=== PATIENT | male | born 1950 | race Caucasian/White ===

== ENCOUNTER 2017-07-06 10:32 | Emergency (ER) | payer MEDICARE ==
[2017-07-06] MEDS ORDERED: SODIUM CHLORIDE 0.9% 500 ML IV STA (11:20)
[2017-07-06] MEDS ORDERED: SODIUM CHLORIDE 0.9% 1,000 ML IV STA (11:20)
[2017-07-06 11:42] LABS: Basophils % (A) 1 %; Eosinophils # (A) 0.1 k/uL (0-0.7); Eosinophils % (A) 1 %; HGB 16.8 gm/dL (13.0-17.5); Lymphocytes # (A) 1.1 k/uL (1.0-4.8); Lymphocytes % (A) 18 %; MCH 30.9 pg (25.0-35.0); MCHC 33.1 g/dL (31.0-37.0); MCV 93.5 fL (80.0-100.0); Mean Platelet Volume 7.4; Monocytes # (A) 0.3 k/uL (0-1.0); Monocytes % (A) 5 %; Neutrophils # (A) 4.5 k/uL (1.3-7.7); Neutrophils % (A) 73 %; Platelet Count 184 k/uL (150-450); RBC 5.45 m/uL (4.30-5.90); RDW 12.5 % (11.5-15.5); WBC 6.1 k/uL (3.8-10.6)
--- NOTE | 2017-07-06 11:48 | ED ---
Abdominal Pain HPI - General Chief Complaint: Abdominal Pain Stated Complaint: Needs CT Kidney Time Seen by Provider: 07/06/17 11:13 Source: patient Mode of arrival: ambulatory Limitations: no limitations - History of Present Illness Initial Comments: This 66-year-old white male presents with a complaint of some pain into his right abdomen and flank region. He states that it is been going on for approximately 3 weeks. He denies any fevers, chills, urinary frequency, urgency , or dysuria, or hematuria. He states that it is moderate in nature and fairly minimal currently. He does give a history that he had a renal cancer removed off of his right kidney in April of this year at [facility]. He apparently called the [facility] relating his current symptoms and they wanted him to come in for a computed tomography scan of the abdomen, pelvis, and thorax. He does bring this paper work with him and it is reviewed. He states that all of the cancer was apparently removed during the surgery. He has no other medical complaints. He is not taking any medications for the pain thus far. No modifying factors. - Related Data Home Medications Medication Instructions Recorded Confirmed No Known Home Medications [No 07/06/17 07/06/17 Known Home Medications] Allergies Allergy/AdvReac Type Severity Reaction Status Date / Time No Known Allergies Allergy Verified 07/06/17 11:24 Review of Systems ROS Statement: Those systems with pertinent positive or pertinent negative responses have been documented in the HPI. ROS Other: All systems not noted in ROS Statement are negative. Past Medical History Past Medical History: Cancer, Renal Disease Additional Past Medical History / Comment(s): right renal CA History of Any Multi-Drug Resistant Organisms: None Reported Past Surgical History: Appendectomy, Cholecystectomy, Orthopedic Surgery Additional Past Surgical History / Comment(s): right kidney, Bilateral shoulder Past Psychological History: No Psychological Hx Reported Smoking Status: Never smoker Past Alcohol Use History: None Reported Past Drug Use History: None Reported General Exam - General Exam Comments Initial Comments: GENERAL: The patient is well nourished and well hydrated. VITAL SIGNS: Heart rate, blood pressure, respiratory rate reviewed as recorded in nurse's notes. EYES: Pupils are round and reactive. Extraocular movements are intact. No conjunctival / lid redness or swelling. ENT: No external evidence of injury, swelling, or ecchymosis. Airway is patent. Throat is clear. NECK: Nontender. No swelling or evidence of injury. No subcutaneous emphysema. Trachea is midline. No thyroid mass. HEART: Regular rate and rhythm. Good peripheral pulses. LUNGS/CHEST: Breath sounds clear and equal bilaterally. No rales, rhonchi, or wheezes. No ecchymosis, subcutaneous emphysema, or tenderness. ABDOMEN: Abdomen soft without any current tenderness. There is no flank tenderness noted. No palpable masses or organomegaly. No peritoneal signs. No abdominal wall swelling or ecchymosis. EXTREMITIES: No extremity tenderness. Normal muscle tone and function. No thoracolumbar tenderness. NEUROLOGIC: Sensation is grossly intact. Cranial nerve exam reveals face is symmetrical, tongue is midline, speech is clear. SKIN: No abrasions or ecchymosis is noted. No induration or masses noted. PSYCHIATRIC: Alert and oriented. Appropriate behavior and judgment. Limitations: no limitations Course Vital Signs 07/06/17 07/06/17 11:06 12:42 Temperature 97.6 F 97.9 F Pulse Rate 69 86 Respiratory 16 18 Rate Blood Pressure 134/81 112/61 O2 Sat by Pulse 99 97 Oximetry Medical Decision Making - Medical Decision Making The patient was seen and examined. All diagnostics were reviewed. An IV is initiated and he is mildly hydrated. The laboratory and urinalysis are reviewed and are essentially unremarkable. The computed tomography scan of the thorax abdomen and pelvis was also reviewed. It does show some abnormalities in the prostate but he states that he is being followed very closely in this regard. He's had 3 biopsies and his PSA is followed closely with his urologist. The computed tomography scan also showed some mild inflammatory changes at the base of the right kidney where he had a partial nephrectomy. No abscess or acute process otherwise is identified. They also do note a sclerotic lesion in the right iliac region and the T7 and recommend follow-up with previous studies. Other incidental findings are noted. He is informed of these findings and given a copy of his computed tomography scan and the report. He is going to relay this information to [facility] for their recommendations as well. The exact cause of his pain is not definitively determined. It is felt as though he is stable for discharge. He is in no distress initially and in no distress on recheck. He is instructed to utilize Tylenol or Motrin as needed for his minimal pain. He is instructed to follow very closely with his doctors for further recommendations. - Lab Data Result diagrams: 07/06/17 11:32 07/06/17 11:32 Lab Results 07/06/17 07/06/17 07/06/17 Range/Units 11:32 11:32 12:24 WBC 6.1 (3.8-10.6) k/uL RBC 5.45 (4.30-5.90) m/uL Hgb 16.8 (13.0-17.5) gm/dL Hct 51.0 (39.0-53.0) % MCV 93.5 (80.0-100.0) fL MCH 30.9 (25.0-35.0) pg MCHC 33.1 (31.0-37.0) g/dL RDW 12.5 (11.5-15.5) % Plt Count 184 (150-450) k/uL Neutrophils % 73 % Lymphocytes % 18 % Monocytes % 5 % Eosinophils % 1 % Basophils % 1 % Neutrophils # 4.5 (1.3-7.7) k/uL Lymphocytes # 1.1 (1.0-4.8) k/uL Monocytes # 0.3 (0-1.0) k/uL Eosinophils # 0.1 (0-0.7) k/uL Basophils # 0.0 (0-0.2) k/uL Sodium 143 (137-145) mmol/L Potassium 4.5 (3.5-5.1) mmol/L Chloride 103 (98-107) mmol/L Carbon Dioxide 30 (22-30) mmol/L Anion Gap 10 mmol/L BUN 21 H (9-20) mg/dL Creatinine 1.00 (0.66-1.25) mg/dL Est GFR (MDRD) Af Amer >60 (>60 ml/min/1.73 sqM) Est GFR (MDRD) Non-Af >60 (>60 ml/min/1.73 sqM) Glucose 86 (74-99) mg/dL Calcium 10.0 (8.4-10.2) mg/dL Total Bilirubin 0.9 (0.2-1.3) mg/dL AST 26 (17-59) U/L ALT 43 (21-72) U/L Alkaline Phosphatase 45 (38-126) U/L Total Protein 7.9 (6.3-8.2) g/dL Albumin 5.0 (3.5-5.0) g/dL Amylase 84 (30-110) U/L Lipase 112 (23-300) U/L Urine Color Yellow Urine Appearance Clear (Clear) Urine pH 6.0 (5.0-8.0) Ur Specific [place] 1.013 (1.001-1.035) Urine Protein Negative (Negative) Urine Glucose (UA) Negative (Negative) Urine Ketones 1+ H (Negative) Urine Blood Negative (Negative) Urine Nitrite Negative (Negative) Urine Bilirubin Negative (Negative) Urine Urobilinogen <2.0 (<2.0) mg/dL Ur Leukocyte Esterase Negative (Negative) Disposition Clinical Impression: Right flank pain, Right sided abdominal pain, H/O malignant neoplasm of kidney , Bony abnormality, Renal cyst, Hepatic lesion, Enlarged prostate Disposition: HOME SELF-CARE Condition: Good Instructions: Abdominal Pain (ED), Flank Pain (ED) Additional Instructions: Please relate ear testing results to your oncology team at [facility] for further recommendations. Please follow-up with your urologist closely. Referrals: None,Stated [Primary Care Provider] - 1-2 days Time of Disposition: 13:37
[2017-07-06 11:49] LABS: ALT 43 U/L (21-72); AST 26 U/L (17-59); Alkaline Phosphatase 45 U/L (38-126); Amylase 84 U/L (30-110); Anion Gap 10 mmol/L; Blood Urea Nitrogen 21 mg/dL (9-20); Carbon Dioxide 30 mmol/L (22-30); Chloride 103 mmol/L (98-107); Glucose 86 mg/dL (74-99); Lipase 112 U/L (23-300); Potassium 4.5 mmol/L (3.5-5.1); Sodium 143 mmol/L (137-145); Total Bilirubin 0.9 mg/dL (0.2-1.3); Total Protein 7.9 g/dL (6.3-8.2)
[2017-07-06 12:37] LABS: Appearance,Urine Clear (Clear); Bilirubin,Urine Negative (Negative); Blood,Urine Negative (Negative); Color,Urine Yellow; Glucose,Urine (UA) Negative (Negative); Ketones,Urine 1+ (Negative); Leukocyte Esterase,Urine Negative (Negative); Nitrite,Urine Negative (Negative); Protein,Urine Negative (Negative); Specific Gravity,Urine 1.013 (1.001-1.035); Urobilinogen,Urine <2.0 mg/dL (<2.0)
--- NOTE | 2017-07-06 12:57 | CT ---
EXAMINATION TYPE: CT ChestAbdPelvis w con DATE OF EXAM: 07/06/2017 COMPARISON: NONE HISTORY: Pain Post OP right sided renal mass removal April 2017. Follow up renal cancer per patien t CT DLP: 530.8 mGycm. Automated Exposure Control for Dose Reduction was Utilized. CONTRAST: CT scan of the thorax, abdomen and pelvis is performed with IV Contrast, patient injected with 100 mL of Omnipaque 300. FINDINGS: LUNGS: The lungs are grossly clear, there is no concerning parenchymal mass or nodule identified. T here is no pleural effusion or pneumothorax seen. The tracheobronchial tree is patent. MEDIASTINUM: There are no greater than 1 cm hilar or mediastinal lymph nodes. No pericardial effusi on is seen. OTHER: Degenerative changes of the glenohumeral joints are noted. LIVER/GB: Within segment 8 of the liver there is a 6 mm hypoattenuated hepatic lesion that is too sma ll to accurately characterize. No prior imaging is available at this institution for comparison to de termine stability. This is relatively low attenuation and may represent a hepatic cyst. PANCREAS: No significant abnormality is seen. SPLEEN: Single benign splenic granuloma is seen within the parenchyma. ADRENALS: No significant abnormality is seen. KIDNEYS: Postsurgical changes of the right lower pole of the kidney are seen with surgical sutures fr om partial nephrectomy. A fluid attenuated lesion without significant enhancement on delayed images s uggestive of a renal cyst is seen within the right midpole measuring 6 mm although this is too small to definitively accurately characterize. Mild right inferior pole perinephric fat stranding is seen, which is nonspecific. No focal fluid collection. The left kidney is unremarkable. BOWEL: Few scattered colonic diverticula are present without pericolonic fat stranding. No evidence o f bowel obstruction. GENITAL ORGANS: The prostate gland is diffusely enlarged and heterogenous measuring up to 5.6 x 5.7 c m in transverse by anterior posterior dimension containing central zone calcifications and left perip heral zone hyperemia/enhancement within both the base and the apex. This is greater towards the apex. LYMPH NODES: No greater than 1cm abdominal or pelvic lymph nodes are appreciated. OSSEOUS STRUCTURES: There is mild vertebral body height loss of the L1 vertebral body of approximatel y 10%. No significant no spinal canal stenosis. Focal sclerotic lesion of T7 measures 5.8 mm. Retropu lsion is seen. Nonspecific peripherally sclerotic right iliac bone lesion measures 8 mm. Correlation with any outside prior imaging is recommended to determine stability. IMPRESSION: 1. Postsurgical changes of a right inferior pole partial nephrectomy. Mild right lower pole inflammat ory fat stranding is seen, which is nonspecific. No focal fluid collection to suggest seroma or absce ss. 2. Diffusely enlarged and heterogenous prostate gland with multiple areas of left-sided hyperemia/enh ancement. Further evaluation for neoplasm is recommended. 3. Probable right renal cyst although it is too small to accurately characterize. 4. Mild vertebral body height loss of the L1 vertebral body of approximately 10% without significant retropulsion. 5. Nonspecific sclerotic lesion of T7 and peripherally sclerotic right iliac bone lesions. Comparison with any outside prior imaging is recommended to determine stability. 6. Subcentimeter hepatic lesion that is too small to accurately characterize.
[2017-07-06 16:35] VITALS: BP 111/71; PULSE 86; RESP 18; TEMP 98
== END 2017-07-06 13:57 | disposition home or self-care (01) ==
LOC: EC 10:32
DX: R10.9 Unspecified abdominal pain (principal); Q79.9 Congenital malformation of musculoskeletal system, unspecified; N28.1 Cyst of kidney, acquired; K76.9 Liver disease, unspecified; N40.0 Benign prostatic hyperplasia without lower urinary tract symptoms; Z85.528 Personal history of other malignant neoplasm of kidney; Z90.49 Acquired absence of other specified parts of digestive tract
CPT/HCPCS: 36415; 80053; 82150; 83690; 85025; 81003; 71260; 74177; 99284; 96360; 96361; Q9967

== ENCOUNTER 2019-09-05 14:00 | Inpatient (IN) | payer MEDICARE, OTHER ==
[2019-09-05 14:29] LABS: Basophils % (A) 0 %; Eosinophils # (A) 0.1 k/uL (0-0.7); Eosinophils % (A) 2 %; HCT 33.8 % (39.0-53.0); HGB 11.1 gm/dL (13.0-17.5); Lymphocytes # (A) 0.5 k/uL (1.0-4.8); Lymphocytes % (A) 12 %; MCH 29.8 pg (25.0-35.0); MCHC 32.8 g/dL (31.0-37.0); MCV 90.8 fL (80.0-100.0); Mean Platelet Volume 6.7; Monocytes # (A) 0.2 k/uL (0-1.0); Monocytes % (A) 6 %; Neutrophils # (A) 3.2 k/uL (1.3-7.7); Neutrophils % (A) 79 %; Platelet Count 351 k/uL (150-450); RBC 3.72 m/uL (4.30-5.90); RDW 12.3 % (11.5-15.5)
[2019-09-05 14:32] LABS: Glucose,Whole Blood 99 mg/dL (75-99)
[2019-09-05 14:33] LABS: ALT 18 U/L (4-49); AST 18 U/L (17-59); African American GFR (CKD) >90 (>60 ml/min/1.73 sqM); Albumin 2.8 g/dL (3.5-5.0); Alkaline Phosphatase 45 U/L (38-126); Anion Gap 12 mmol/L; Blood Urea Nitrogen 15 mg/dL (9-20); Calcium 8.3 mg/dL (8.4-10.2); Carbon Dioxide 24 mmol/L (22-30); Chloride 96 mmol/L (98-107); Glucose 107 mg/dL (74-99); Magnesium 1.8 mg/dL (1.6-2.3); Non-African American GFR(CKD) >90 (>60 ml/min/1.73 sqM); Potassium 3.7 mmol/L (3.5-5.1); Sodium 132 mmol/L (137-145); Total Bilirubin 0.7 mg/dL (0.2-1.3); Total Protein 5.5 g/dL (6.3-8.2)
--- NOTE | 2019-09-05 14:41 | ED ---
General Adult HPI - General Chief complaint: Weakness Stated complaint: Wealness Time Seen by Provider: 09/05/19 14:05 Source: EMS Mode of arrival: EMS Limitations: no limitations - History of Present Illness Initial comments: Dictation was produced using [employer] dictation software. please excuse any grammatical, word or spelling errors. Chief Complaint: 68-year-old male with past medical history of renal cell carcinoma with diffuse metastatic disease presents with generalized weakness. History of Present Illness: She 68-year-old male has history of metastatic renal cell carcinoma. Patient was recently discharged from [facility] approximately 10-11 days ago. Patient states that he is here today because of generalized weakness he is brought in by EMS. Patient states she's been generally weak. He reports that he was admitted to [facility] for approximately 8 days for a similar complaint. He has not had any cancer treatment since May of last year. He states he is trying to get stronger and healthier so he can undergo another series of cancer treatment. Patient has any pain complaints. He is unable to keep anything down. He states that when he presses also daily immediately throws it up. Patient states he does not have any doctors here locally because most of his doctors are [facility]. He states he drives there almost monthly for follow-up appointments. The ROS documented in this emergency department record has been reviewed and confirmed by me. Those systems with pertinent positive or negative responses have been documented in the HPI. All other systems are other negative and/or noncontributory. PHYSICAL EXAM: General Impression: Alert and oriented x3, not in acute distress, cachexic appearing HEENT: Normocephalic atraumatic, extra-ocular movements intact, pupils equal and reactive to light bilaterally, dry mucous membranes Cardiovascular: Heart regular rate and rhythm, S1&S2 audible, no murmurs, rubs or gallops Chest: Lungs clear to auscultation bilaterally, no rhonchi, no wheeze, no rales Abdomen: Bowel sounds present, abdomen soft, non-tender, non-distended, no organomegaly Musculoskeletal: Pulses present and equal in all extremities, no peripheral e vilma Motor: no focal deficits noted Neurological: CN II-XII grossly intact, no focal motor or sensory deficits noted Skin: Intact with no visualized rashes Psych: Normal affect and mood ED course: 68-year-old male presents with generalized weakness. Patient has extensive medical history regarding his renal cell carcinoma. Vital signs upon arrival are within acceptable limits. Laboratory evaluation obtained. CBC unremarkable. Coag panel is unremarkable. Metabolic panel shows mild hyponatremia 132. Rest metabolic panel is negative. Patient reevaluated bedside. He states he is having difficulty tolerating any sort of oral intake. Vital signs however remained to be normal. Patient re quested to be admitted to our facility given that it's closer to home nearby his family has a post being transferred to [facility]. Discussed patient case Dr. clark was went except patient's care. Request was made to clinic clinic to obtain recent admission medical records. Patient will be continued on maintenance IV fluids and antiemetics. EKG interpretation: Ventricular rate 90, normal sinus rhythm,. 136, QRS 86, QTC 428. No KS prolongation, no QTC prolongation, no ST or T-wave changes noted. . Overall, this EKG is unremarkable - Related Data Home Medications Medication Instructions Recorded Confirmed No Known Home Medications 07/06/17 07/06/17 Allergies Allergy/AdvReac Type Severity Reaction Status Date / Time No Known Allergies Allergy Verified 07/06/17 11:24 Review of Systems ROS Statement: Those systems with pertinent positive or pertinent negative responses have been documented in the HPI. ROS Other: All systems not noted in ROS Statement are negative. Past Medical History Past Medical History: Cancer, Renal Disease Additional Past Medical History / Comment(s): right renal CA History of Any Multi-Drug Resistant Organisms: None Reported Past Surgical History: Appendectomy, Cholecystectomy, Orthopedic Surgery Additional Past Surgical History / Comment(s): right kidney, Bilateral shoulder Past Psychological History: No Psychological Hx Reported Smoking Status: Never smoker Past Alcohol Use History: None Reported Past Drug Use History: None Reported General Exam Limitations: no limitations Course Vital Signs 09/05/19 09/05/19 09/05/19 14:05 14:30 15:00 Temperature 97.6 F Pulse Rate 91 87 89 Respiratory 18 17 18 Rate Blood Pressure 100/68 101/65 100/73 O2 Sat by Pulse 100 99 100 Oximetry Medical Decision Making - Lab Data Result diagrams: 09/05/19 14:11 09/05/19 14:11 Lab Results 09/05/19 09/05/19 09/05/19 Range/Units 14:11 14:11 14:11 WBC 4.0 (3.8-10.6) k/uL RBC 3.72 L (4.30-5.90) m/uL Hgb 11.1 L (13.0-17.5) gm/dL Hct 33.8 L (39.0-53.0) % MCV 90.8 (80.0-100.0) fL MCH 29.8 (25.0-35.0) pg MCHC 32.8 (31.0-37.0) g/dL RDW 12.3 (11.5-15.5) % Plt Count 351 (150-450) k/uL Neutrophils % 79 % Lymphocytes % 12 % Monocytes % 6 % Eosinophils % 2 % Basophils % 0 % Neutrophils # 3.2 (1.3-7.7) k/uL Lymphocytes # 0.5 L (1.0-4.8) k/uL Monocytes # 0.2 (0-1.0) k/uL Eosinophils # 0.1 (0-0.7) k/uL Basophils # 0.0 (0-0.2) k/uL PT 12.1 H (9.0-12.0) sec INR 1.2 H (<1.2) APTT 23.8 (22.0-30.0) sec Sodium 132 L (137-145) mmol/L Potassium 3.7 (3.5-5.1) mmol/L Chloride 96 L (98-107) mmol/L Carbon Dioxide 24 (22-30) mmol/L Anion Gap 12 mmol/L BUN 15 (9-20) mg/dL Creatinine 0.73 (0.66-1.25) mg/dL Est GFR (CKD-EPI)AfAm >90 (>60 ml/min/1.73 sqM) Est GFR (CKD-EPI)NonAf >90 (>60 ml/min/1.73 sqM) Glucose 107 H (74-99) mg/dL POC Glucose (mg/dL) (75-99) mg/dL POC Glu [employer] ID Plasma Lactic Acid Yohannes (0.7-2.0) mmol/L Calcium 8.3 L (8.4-10.2) mg/dL Magnesium 1.8 (1.6-2.3) mg/dL Total Bilirubin 0.7 (0.2-1.3) mg/dL AST 18 (17-59) U/L ALT 18 (4-49) U/L Alkaline Phosphatase 45 (38-126) U/L Troponin I (0.000-0.034) ng/mL Total Protein 5.5 L (6.3-8.2) g/dL Albumin 2.8 L (3.5-5.0) g/dL Urine Color Urine Appearance (Clear) Urine pH (5.0-8.0) Ur Specific [employer] (1.001-1.035) Urine Protein (Negative) Urine Glucose (UA) (Negative) Urine Ketones (Negative) Urine Blood (Negative) Urine Nitrite (Negative) Urine Bilirubin (Negative) Urine Urobilinogen (<2.0) mg/dL Ur Leukocyte Esterase (Negative) Urine RBC (0-5) /hpf Urine WBC (0-5) /hpf Ur Squamous Epith Cells (0-4) /hpf Urine Mucus (None) /hpf Urine Yeast (Budding) (None) /hpf Urine Sperm (None) /hpf 09/05/19 09/05/19 09/05/19 Range/Units 14:11 14:11 14:30 WBC (3.8-10.6) k/uL RBC (4.30-5.90) m/uL Hgb (13.0-17.5) gm/dL Hct (39.0-53.0) % MCV (80.0-100.0) fL MCH (25.0-35.0) pg MCHC (31.0-37.0) g/dL RDW (11.5-15.5) % Plt Count (150-450) k/uL Neutrophils % % Lymphocytes % % Monocytes % % Eosinophils % % Basophils % % Neutrophils # (1.3-7.7) k/uL Lymphocytes # (1.0-4.8) k/uL Monocytes # (0-1.0) k/uL Eosinophils # (0-0.7) k/uL Basophils # (0-0.2) k/uL PT (9.0-12.0) sec INR (<1.2) APTT (22.0-30.0) sec Sodium (137-145) mmol/L Potassium (3.5-5.1) mmol/L Chloride (98-107) mmol/L Carbon Dioxide (22-30) mmol/L Anion Gap mmol/L BUN (9-20) mg/dL Creatinine (0.66-1.25) mg/dL Est GFR (CKD-EPI)AfAm (>60 ml/min/1.73 sqM) Est GFR (CKD-EPI)NonAf (>60 ml/min/1.73 sqM) Glucose (74-99) mg/dL POC Glucose (mg/dL) 99 (75-99) mg/dL POC Glu [employer]orer ID MartinezGuy Plasma Lactic Acid Yohannes 1.0 (0.7-2.0) mmol/L Calcium (8.4-10.2) mg/dL Magnesium (1.6-2.3) mg/dL Total Bilirubin (0.2-1.3) mg/dL AST (17-59) U/L ALT (4-49) U/L Alkaline Phosphatase (38-126) U/L Troponin I <0.012 (0.000-0.034) ng/mL Total Protein (6.3-8.2) g/dL Albumin (3.5-5.0) g/dL Urine Color Urine Appearance (Clear) Urine pH (5.0-8.0) Ur Specific [employer] (1.001-1.035) Urine Protein (Negative) Urine Glucose (UA) (Negative) Urine Ketones (Negative) Urine Blood (Negative) Urine Nitrite (Negative) Urine Bilirubin (Negative) Urine Urobilinogen (<2.0) mg/dL Ur Leukocyte Esterase (Negative) Urine RBC (0-5) /hpf Urine WBC (0-5) /hpf Ur Squamous Epith Cells (0-4) /hpf Urine Mucus (None) /hpf Urine Yeast (Budding) (None) /hpf Urine Sperm (None) /hpf 09/05/19 Range/Units 16:30 WBC (3.8-10.6) k/uL RBC (4.30-5.90) m/uL Hgb (13.0-17.5) gm/dL Hct (39.0-53.0) % MCV (80.0-100.0) fL MCH (25.0-35.0) pg MCHC (31.0-37.0) g/dL RDW (11.5-15.5) % Plt Count (150-450) k/uL Neutrophils % % Lymphocytes % % Monocytes % % Eosinophils % % Basophils % % Neutrophils # (1.3-7.7) k/uL Lymphocytes # (1.0-4.8) k/uL Monocytes # (0-1.0) k/uL Eosinophils # (0-0.7) k/uL Basophils # (0-0.2) k/uL PT (9.0-12.0) sec INR (<1.2) APTT (22.0-30.0) sec Sodium (137-145) mmol/L Potassium (3.5-5.1) mmol/L Chloride (98-107) mmol/L Carbon Dioxide (22-30) mmol/L Anion Gap mmol/L BUN (9-20) mg/dL Creatinine (0.66-1.25) mg/dL Est GFR (CKD-EPI)AfAm (>60 ml/min/1.73 sqM) Est GFR (CKD-EPI)NonAf (>60 ml/min/1.73 sqM) Glucose (74-99) mg/dL POC Glucose (mg/dL) (75-99) mg/dL POC Glu [employer]orer ID Plasma Lactic Acid Yohannes (0.7-2.0) mmol/L Calcium (8.4-10.2) mg/dL Magnesium (1.6-2.3) mg/dL Total Bilirubin (0.2-1.3) mg/dL AST (17-59) U/L ALT (4-49) U/L Alkaline Phosphatase (38-126) U/L Troponin I (0.000-0.034) ng/mL Total Protein (6.3-8.2) g/dL Albumin (3.5-5.0) g/dL Urine Color Yellow Urine Appearance Cloudy (Clear) Urine pH 6.5 (5.0-8.0) Ur Specific [employer] 1.019 (1.001-1.035) Urine Protein Trace H (Negative) Urine Glucose (UA) Negative (Negative) Urine Ketones 2+ H (Negative) Urine Blood Negative (Negative) Urine Nitrite Negative (Negative) Urine Bilirubin Negative (Negative) Urine Urobilinogen 2.0 (<2.0) mg/dL Ur Leukocyte Esterase Negative (Negative) Urine RBC 1 (0-5) /hpf Urine WBC 3 (0-5) /hpf Ur Squamous Epith Cells <1 (0-4) /hpf Urine Mucus Moderate H (None) /hpf Urine Yeast (Budding) Occasional H (None) /hpf Urine Sperm Rare (None) /hpf Disposition Clinical Impression: Weakness Disposition: ADMITTED IP TO THIS [facility] Condition: Fair Referrals: None,Stated [REFERRING] - 1-2 days Decision Time: 17:27
[2019-09-05 14:43] LABS: INR 1.2 (<1.2); Partial Thromboplastin Time 23.8 sec (22.0-30.0); Prothrombin Time 12.1 sec (9.0-12.0)
[2019-09-05 16:50] LABS: Appearance,Urine Cloudy (Clear); Bilirubin,Urine Negative (Negative); Blood,Urine Negative (Negative); Budding Yeast,Urine Occasional /hpf; Color,Urine Yellow; Glucose,Urine (UA) Negative (Negative); Ketones,Urine 2+ (Negative); Leukocyte Esterase,Urine Negative (Negative); Mucus,Urine Moderate /hpf; Nitrite,Urine Negative (Negative); PH, Urine 6.5 (5.0-8.0); Protein,Urine Trace (Negative); RBC,Urine 1 /hpf (0-5); Specific Gravity,Urine 1.019 (1.001-1.035); Sperm,Urine Rare /hpf; Squamous Epithelial Cell,Urine <1 /hpf (0-4); WBC,Urine 3 /hpf (0-5)
[2019-09-05] MEDS ORDERED: NALOXONE 0.4 MG/ML 1 ML VIAL IV PRN (17:27)
[2019-09-05] MEDS ORDERED: ACETAMINOPHEN TAB 325 MG TAB PO PRN (17:27)
[2019-09-05] MEDS: SODIUM CHLORIDE 0.9% 1,000 ML IV SCH (17:56)
[2019-09-05] MEDS: PANTOPRAZOLE 40 MG TABLET PO SCH (20:00)
[2019-09-05] MEDS: TAMSULOSIN 0.4 MG CAP.ER.24H PO SCH (20:00)
[2019-09-06] MEDS: PANTOPRAZOLE 40 MG TABLET PO SCH ×2 (08:25→17:23)
[2019-09-06] MEDS: SODIUM CHLORIDE 0.9% 1,000 ML IV SCH ×3 (10:51→16:14)
[2019-09-06 15:45] VITALS: BMI 18.0
[2019-09-06] MEDS ORDERED: TEMAZEPAM 15 MG CAP PO PRN (16:25)
[2019-09-06] MEDS ORDERED: ALPRAZolam 0.25 MG TAB PO PRN (16:25)
--- NOTE | 2019-09-06 17:30 | HP ---
HISTORY AND PHYSICAL DATE OF SERVICE: 09/06/2019 CHIEF COMPLAINT: Weakness. HISTORY OF PRESENT ILLNESS: This 68-year-old gentleman with a past medical history of multiple medical problems, including history of right renal carcinoma, history of appendectomy, cholecystectomy, history of DJD, being followed by [facility] and Dr. Alvarado in the outpatient setting, was receiving treatment from [facility]. Patient was recently discharged from [facility] about 11 days ago. The patient complains of generalized weakness and tiredness, and the patient is unable to keep anything down. The patient was admitted for further evaluation and treatment. The patient had extensive evaluation in [facility] recently. He had abdominal symptoms and was thought to have colitis or multiple ulcerations and multiple cavities in the colon. The patient has received multiple radiation therapy, but no chemotherapy has been started because if the patient's apparently poor general status at this time. His BMI is 18, indicating moderate to severe protein-calorie malnutrition. There is no history of any fever, rigor or chills. No history of headache, loss of consciousness, seizures at this time. PAST MEDICAL HISTORY: History of renal cancer, as mentioned, right nephrectomy, history of cholecystectomy, appendectomy, history of DJD, history of bilateral shoulder surgery. HOME MEDICATIONS: 1. Flomax 0.4 at bedtime. 2. Protonix 40 mg b.i.d. 3. Multivitamins 1 p.o. daily. ALLERGIES: NONE. FAMILY HISTORY: No history of heart disease or strokes in the family. SOCIAL HISTORY: No history of smoking. No history of alcohol intake. REVIEW OF SYSTEMS: ENT: Diminished hearing. Diminished vision. CARDIOVASCULAR SYSTEM: No angina, palpitations. RESPIRATORY SYSTEM: As mentioned earlier. GI: No nausea, vomiting. : No dysuria or retention. NERVOUS SYSTEM: No numbness, weakness. ALLERGY/IMMUNOLOGY: No asthma, hayfever. MUSCULOSKELETAL: As mentioned earlier. HEMATOLOGY/ONCOLOGY: No history of anemia. ENDOCRINE: No history of diabetes, hypothyroidism. CONSTITUTIONAL: As mentioned earlier. DERMATOLOGY: Negative. RHEUMATOLOGY: Negative. PSYCHIATRY: As mentioned earlier. PHYSICAL EXAMINATION: Patient is alert and oriented x3. Pulse 86, blood pressure 94/60, respirations 16, temperature 98.4, pulse ox 96% on room air. HEENT: Conjunctivae normal. Oral mucosa dry. NECK: No jugular venous distention. No carotid bruit. No lymph node enlargement. CARDIOVASCULAR SYSTEM: S1, S2 muffled. No S3. No S4. RESPIRATORY SYSTEM: Breath sounds diminished at the bases. A few scattered rhonchi. No crackles. ABDOMEN: Soft, scaphoid, non-tender. No mass palpable. LEGS: No edema. No swelling. NERVOUS SYSTEM: Higher functions as mentioned earlier. Moves all 4 limbs. No focal motor or sensory deficit. LYMPHATICS: No lymph node palpable in neck, axillae or groin. SKIN: No ulcer, rash, bleeding. JOINTS: No active deforming arthropathy. LABS: WBC 4, hemoglobin 11.1. INR 1.2. Sodium 132, albumin is 2.8. ASSESSMENT: 1. Generalized weakness and tiredness for evaluation; possible dehydration secondary to diminished oral intake. 2. Diffuse ulcerations and multiple lesions after EGD and colonoscopy recently done in [facility]. 3. Right renal cancer with metastases, on radiation therapy; chemotherapy pending. 4. Anemia, normocytic. 5. Relative hypotension. 6. Hyponatremia. 7. Mild coagulopathy. 8. Hypoalbuminemia with severe protein-calorie malnutrition. 9. History of degenerative joint disease. 10.History of right nephrectomy. 11.History of appendectomy. 12.History of cholecystectomy. 13.FULL CODE. RECOMMENDATIONS AND DISCUSSION: In this 68-year-old gentleman who presented with multiple complex medical issues, we will monitor the patient closely, continue the current medications, continue with symptomatic treatment. I recommend IV fluids. Dietary evaluation. Ensure, food supplementation. Check orthostatic vitals. Serum cortisol. Hematology/oncology evaluation. Resume the home medication. Monitor creatinine closely. IV fluids. Prognosis guarded because of multiple complex medical issues. Further recommendations to follow. Patient does not have any evidence of any infection at this time. I would also order a chest x-ray to complete the workup. Prognosis guarded. Further recommendations to follow. A copy of this dictation is being forwarded to Dr. Alvarado, who is the primary physician. MMODL / IJN: [id number] /
[2019-09-06] MEDS: TAMSULOSIN 0.4 MG CAP.ER.24H PO SCH (20:13)
[2019-09-06] MEDS: HEPARIN SODIUM,PORCINE 5,000 UNIT/ML 1 ML VIAL SQ SCH (20:13)
--- NOTE | 2019-09-06 22:08 | P.CONS ---
History of Present Illness - Reason for Consult Consult date: 09/06/19 Weakness, Failure to thrive, RCC - History of Present Illness The patient is a 68-year-old white male with a complicated past medical history. The patient was diagnosed with right-sided renal cell cancer in the . He was treated with nephrectomy. The patient developed recurrence in the lungs, apparently in 2019. He states that this was an isolated recurrence in the patient was treated with resection at the [facility] in 02/18. He then developed recurrence in the right renal bed and states that he received radiation. Since late 05/21, the patient developed problems with abdominal pains, exacerbated by eating. He also had associated bloating, and gas. As a result his oral intake declined significantly and he started to lose weight. He has lost about 20+ pounds since. He had gone to [facility] and was admitted for these complaints. He states that he had imaging done in 08/22 and was told that this was negative. He had been following up at the [facility] regarding his recurrent renal cell cancer. He was admitted therefore persistent complains and states that on review of his imaging there he was told that there appeared to be recurrence in the lung and possibly the right renal bed. In mid 08/22, he had EGD and colonoscopy revealing significant erythema and inflammation in the upper GI, as well as diffuse inflammation with scattered ulceration throughout the colon. He states the biopsies were negative and at this time he has not been told a definite etiology. He was subsequently discharged. He came into the hospital today because of persistent weakness, decreased appetite and failure to thrive. He was admitted for further management. Review of Systems Constitutional: Reports chronic pain, Reports fatigue, Reports poor appetite, Reports weakness, Reports weight loss Eyes: denies blurred vision, denies pain Ears: deny: decreased hearing, ear discharge, earache, tinnitus Ears, nose, mouth and throat: Denies headache, Denies sore throat Cardiovascular: Reports decreased exercise tolerance Respiratory: Denies cough Gastrointestinal: Reports as per HPI, Reports abdominal pain, Reports bloating, Reports dyspepsia, Reports excessive gas Genitourinary: Reports as per HPI Musculoskeletal: Reports muscle weakness Integumentary: Denies pruritus, Denies rash Neurological: Reports weakness Psychiatric: Denies anxiety, Denies depression Endocrine: Reports fatigue, Reports weight change Hematologic/Lymphatic: Reports as per HPI Past Medical History Past Medical History: Cancer, Renal Disease Additional Past Medical History / Comment(s): right renal CA History of Any Multi-Drug Resistant Organisms: None Reported Past Surgical History: Appendectomy, Cholecystectomy, Orthopedic Surgery Additional Past Surgical History / Comment(s): right kidney, Bilateral shoulder Past Psychological History: No Psychological Hx Reported Smoking Status: Never smoker Past Alcohol Use History: None Reported Past Drug Use History: None Reported - Past Family History Father Family Medical History: No Reported History Medications and Allergies Home Medications Medication Instructions Recorded Confirmed Type Multivitamins, Thera [Multivitamin 1 tab PO DAILY 09/05/19 09/05/19 History (formulary)] Pantoprazole Sodium [Protonix] 40 mg PO AC-BID 09/05/19 09/05/19 History Tamsulosin HCl [Flomax] 0.4 mg PO HS 09/05/19 09/05/19 History Allergies Allergy/AdvReac Type Severity Reaction Status Date / Time No Known Allergies Allergy Verified 09/05/19 20:48 Physical Exam Vitals: Vital Signs Temp Pulse Pulse Pulse Pulse Resp BP 09/06/19 20:33 98.8 F 102 H 103 H 96 16 09/06/19 16:19 91 63 102 H 91 18 09/06/19 11:20 98.4 F 86 16 94/60 09/06/19 04:55 98.1 F 97 18 96/60 09/05/19 21:08 99.8 F H 90 18 101/66 BP BP BP Pulse Ox 09/06/19 20:33 97/61 96/62 96/59 99 09/06/19 16:19 108/67 103/64 104/62 09/06/19 11:20 96 09/06/19 04:55 95 09/05/19 21:08 98 Intake and Output 09/06/19 09/06/19 09/06/19 06:59 14:59 22:59 Other: Voiding Method Toilet Toilet # Voids 2 3 # Bowel Movements 1 Weight 53.796 kg - Constitutional General appearance: no acute distress - EENT Eyes: EOMI, PERRLA ENT: hearing grossly normal, normal oropharynx - Neck Neck: no lymphadenopathy Thyroid: bilateral: normal size - Respiratory Respiratory: bilateral: CTA - Cardiovascular Rhythm: regular Heart sounds: normal: S1, S2 - Gastrointestinal General gastrointestinal: normal bowel sounds, soft Localized gastrointestinal: tender: RLQ, LLQ - Integumentary Integumentary: normal - Neurologic Neurologic: CNII-XII intact - Musculoskeletal Musculoskeletal: generalized weakness, strength equal bilaterally - Psychiatric Psychiatric: A&O x's 3, appropriate affect Results CBC & Chem 7: 09/05/19 14:11 09/05/19 14:11 Comments: EGD and colonoscopy op report, images, reviewed ( [facility]) CT scan - abdomen: report reviewed CT scan - chest: report reviewed CT scan - pelvis: report reviewed Assessment and Plan (1) Failure to thrive in adult Narrative/Plan: This appears to be due to abdominal pain since 05/21, with multiple different types of food, causing decreased oral intake, progressive weakness and weight loss. EGD and colonoscopy report reviewed and summarized in the HPI. Biopsies were negative for malignancy, but exact etiology is not known at this time. The patient has follow-up at the [facility] later this month At this time supportive measures would be recommended. The patient feels better with hydration. He states that he is able to tolerate some foods better than others. Dietitian referral advised to formulate an appropriate diet plan for him, to hopefully maintain weight and performance status, till he follows up at [facility]. At this time it is difficult to attribute this to recurrent malignancy. His CT scans from [facility] were obtained from EMR and reviewed. They did not show any evident recurrent malignancy. He states that on review at [facility] he was told that there were some lesions in the lung. However according to the available description, even if there is recurrent disease the borderline would appear to be quite low, and unlikely to cause major symptoms at this time Current Visit: Yes Status: Acute Code(s): R62.7 - ADULT FAILURE TO THRIVE SNOMED Code(s): 384442989 (2) Renal cell cancer Narrative/Plan: History as described above. The patient states that at his last visit in [facility] he was told that he may have recurrent disease, but according to his description burden of disease appears to be quite low. He has not had any systemic therapy for renal cell cancer so far but apparently this is being discussed at the [facility]. Follow-up at [facility] as scheduled. Current Visit: Yes Status: Acute Code(s): C64.9 - MALIGNANT NEOPLASM OF UNSP KIDNEY, EXCEPT RENAL PELVIS SNOMED Code(s): 151940140 (3) Colitis Narrative/Plan: The patient's recent CT scans, as well as endoscopies revealed fairly extensive GI inflammation, with jose scattered ulcers in the colon. Etiology of this is not known. However this appears to be likely the reason for his decreased appetite, weight loss and failure to thrive. Apparently biopsies were negative for infection or malignancy. An autoimmune etiology is a possibility. It was confirmed with the patient that he has a follow-up at [facility] later this month. I will check for celiac disease antibodies Current Visit: Yes Status: Acute Code(s): K52.9 - NONINFECTIVE GASTROENTERITIS AND COLITIS, UNSPECIFIED SNOMED Code(s): 58443946 Plan: defer to the Admitting service for management of his other medical problems
[2019-09-07] MEDS: SODIUM CHLORIDE 0.9% 1,000 ML IV SCH (05:21)
[2019-09-07 08:21] LABS: Basophils % (A) 0 %; Eosinophils # (A) 0.1 k/uL (0-0.7); Eosinophils % (A) 1 %; HCT 31.3 % (39.0-53.0); HGB 10.5 gm/dL (13.0-17.5); Lymphocytes # (A) 0.4 k/uL (1.0-4.8); Lymphocytes % (A) 11 %; MCH 30.1 pg (25.0-35.0); MCHC 33.5 g/dL (31.0-37.0); MCV 89.9 fL (80.0-100.0); Mean Platelet Volume 6.8; Monocytes # (A) 0.2 k/uL (0-1.0); Monocytes % (A) 6 %; Neutrophils # (A) 2.9 k/uL (1.3-7.7); Neutrophils % (A) 79 %; Platelet Count 386 k/uL (150-450); RBC 3.49 m/uL (4.30-5.90); RDW 12.3 % (11.5-15.5); WBC 3.6 k/uL (3.8-10.6)
[2019-09-07 08:30] LABS: African American GFR (CKD) >90 (>60 ml/min/1.73 sqM); Anion Gap 6 mmol/L; Blood Urea Nitrogen 12 mg/dL (9-20); Calcium 8.1 mg/dL (8.4-10.2); Carbon Dioxide 26 mmol/L (22-30); Chloride 97 mmol/L (98-107); Glucose 104 mg/dL (74-99); Non-African American GFR(CKD) >90 (>60 ml/min/1.73 sqM); Potassium 3.3 mmol/L (3.5-5.1); Sodium 129 mmol/L (137-145)
--- NOTE | 2019-09-07 09:11 | XR ---
EXAMINATION TYPE: XR chest 2V DATE OF EXAM: 09/07/2019 COMPARISON: CT July 06, 2017 HISTORY: Chest pain. History of renal cell cancer. TECHNIQUE: Frontal and lateral views of the chest are obtained. FINDINGS: There is no focal air space opacity, pleural effusion, or pneumothorax seen. The cardiac silhouette size remains within normal limits. Scoliotic curvature is redemonstrated. IMPRESSION: No acute cardiopulmonary process. No significant change from prior.
[2019-09-07] MEDS: MULTIVITAMINS, THERA 1 EACH TAB PO SCH (09:58)
[2019-09-07] MEDS: PANTOPRAZOLE 40 MG TABLET PO SCH ×2 (09:58→18:26)
[2019-09-07] MEDS: HEPARIN SODIUM,PORCINE 5,000 UNIT/ML 1 ML VIAL SQ SCH ×2 (09:58→20:47)
[2019-09-07] MEDS ORDERED: Potassium Replacement Protocol 1 EACH MISC MISCELLANE PRN (10:22)
[2019-09-07] MEDS: THIAMINE 100 MG TAB PO SCH (12:45)
[2019-09-07] MEDS: FOLIC ACID 1 MG TAB PO SCH (12:45)
[2019-09-07] MEDS: NYSTATIN 100,000 UNIT/ML SUSP 500,000 UNIT/5 ML CUP PO SCH ×3 (12:45→20:47)
[2019-09-07] MEDS: 0.9% NACL WITH KCL 40 MEQ/L 1,000 ML IV SCH (18:26)
[2019-09-07] MEDS: methylPREDNISolone SOD SUCCI 125 MG/2 ML VIAL IV SCH ×2 (19:24→23:43)
--- NOTE | 2019-09-07 20:04 | PN ---
PROGRESS NOTE DATE OF SERVICE: 09/07/2019 This 68-year-old gentleman who was admitted with weakness, also had diffuse ulcerations in the colon. The patient was seen by Hematology/Oncology. Sodium 139, potassium 3.3 and cortisol level was 21. WBC 33.2, hemoglobin 10.4. PAST MEDICAL HISTORY: Reviewed. REVIEW OF SYMPTOMS: CARDIOVASCULAR SYSTEM as mentioned earlier. RESPIRATIONS: As mentioned earlier. GI: As mentioned earlier. : No dysuria. NERVOUS SYSTEM: No numbness or weakness. CURRENT MEDICATIONS: Reviewed and include: 1. Tylenol p.r.n. 2. [place] 5 mg q.6h p.r.n. 3. Xanax 0.5 t.i.d. 4. Folic acid 1 mg daily. 5. Heparin 5000 subcu b.i.d. 6. Multivitamins. 7. Narcan. 8. Mycostatin. 9. Protonix. 10.Vitamin B1. PHYSICAL EXAM: Patient is alert and oriented times three. Pulse 102. Blood pressure 89/59, respiration 16, temperature 98.2, pulse ox 98% on room air. HEENT: Conjunctivae normal. NECK: No JVD. CARDIOVASCULAR: S1, S2 muffled. RESPIRATORY SYSTEM: Breath sounds diminished at the bases. A few scattered rhonchi and crackles. ABDOMEN: Soft, nontender. LEGS are no edema. No swelling. CENTRAL NERVOUS SYSTEM: No focal deficits. LABS: WBC 3.2, hemoglobin 10.8. Sodium 130, potassium 3.3. ASSESSMENT: 1. Generalized weakness and tiredness possible dehydration secondary to diminished p.o. intake. 2. Relative hypotension. 3. Diffuse ulcerations and multiple lesions in the EGD and colonoscopy done in [facility], possibly autoimmune in nature. 4. Final biopsies are pending. 5. Right renal cancer with metastasis on radiation therapy, chemotherapy pending. 6. Anemia, normocytic. 7. Relative hypotension. 8. Hyponatremia. 9. Mild coagulopathy. 10.Hypoalbuminemia. 11.Severe protein calorie malnutrition. 12.History of degenerative joint disease. 13.History of right nephrectomy. 14.History of appendectomy. 15.History of cholecystectomy. 16.FULL CODE. 17.Diarrhea. RECOMMENDATIONS AND DISCUSSION: In this 68-year-old gentleman who presented with multiple complex medical issues, we will monitor the patient closely. Continue the IV fluids. Otherwise, supplement potassium. Monitor sodium closely. Otherwise as far as diarrhea is concerned, we will check a stool for C diff and also urine and stool WBC also. The possibility of empiric steroids will be discussed with Dr. Dykes. Otherwise, prognosis guarded because of multiple complex medical issues. Further recommendations to follow. See orders for details. MMODL / IJN: [id number] /
[2019-09-07 20:17] LABS: Glucose,Whole Blood 145 mg/dL (75-99)
[2019-09-07] MEDS: TAMSULOSIN 0.4 MG CAP.ER.24H PO SCH (20:47)
[2019-09-07] MEDS: INSULIN ASPART (NovoLOG) 100 UNIT/ML VIAL SQ SCH (20:47)
[2019-09-08] MEDS: methylPREDNISolone SOD SUCCI 125 MG/2 ML VIAL IV SCH ×3 (05:55→18:20)
[2019-09-08] MEDS: 0.9% NACL WITH KCL 40 MEQ/L 1,000 ML IV SCH ×3 (05:55→22:28)
[2019-09-08 06:57] LABS: Glucose,Whole Blood 153 mg/dL (75-99)
[2019-09-08 07:29] LABS: Basophils % (A) 0 %; Eosinophils % (A) 0 %; HCT 33.3 % (39.0-53.0); HGB 10.7 gm/dL (13.0-17.5); Lymphocytes # (A) 0.2 k/uL (1.0-4.8); Lymphocytes % (A) 11 %; MCH 29.4 pg (25.0-35.0); MCV 91.9 fL (80.0-100.0); Mean Platelet Volume 7.1; Monocytes % (A) 2 %; Neutrophils # (A) 1.4 k/uL (1.3-7.7); Neutrophils % (A) 86 %; Platelet Count 308 k/uL (150-450); RBC 3.63 m/uL (4.30-5.90); RDW 12.3 % (11.5-15.5); WBC 1.7 k/uL (3.8-10.6)
[2019-09-08 07:44] LABS: African American GFR (CKD) >90 (>60 ml/min/1.73 sqM); Anion Gap 6 mmol/L; Blood Urea Nitrogen 12 mg/dL (9-20); Calcium 8.5 mg/dL (8.4-10.2); Carbon Dioxide 26 mmol/L (22-30); Chloride 102 mmol/L (98-107); Glucose 145 mg/dL (74-99); Non-African American GFR(CKD) >90 (>60 ml/min/1.73 sqM); Potassium 4.2 mmol/L (3.5-5.1); Sodium 134 mmol/L (137-145)
[2019-09-08] MEDS: MULTIVITAMINS, THERA 1 EACH TAB PO SCH (09:08)
[2019-09-08] MEDS: THIAMINE 100 MG TAB PO SCH (09:08)
[2019-09-08] MEDS: PANTOPRAZOLE 40 MG TABLET PO SCH ×2 (09:08→18:23)
[2019-09-08] MEDS: HEPARIN SODIUM,PORCINE 5,000 UNIT/ML 1 ML VIAL SQ SCH ×2 (09:09→21:47)
[2019-09-08] MEDS: NYSTATIN 100,000 UNIT/ML SUSP 500,000 UNIT/5 ML CUP PO SCH ×4 (09:09→21:47)
[2019-09-08] MEDS: INSULIN ASPART (NovoLOG) 100 UNIT/ML VIAL SQ SCH ×4 (09:09→21:47)
[2019-09-08] MEDS: FOLIC ACID 1 MG TAB PO SCH (09:09)
[2019-09-08 12:03] LABS: Glucose,Whole Blood 155 mg/dL (75-99)
[2019-09-08 17:05] LABS: Glucose,Whole Blood 197 mg/dL (75-99)
--- NOTE | 2019-09-08 17:53 | P.CONS ---
History of Present Illness - Reason for Consult Consult date: 09/08/19 Colitis Requesting physician: Rashi Cain - Chief Complaint Abdominal pain, decreased oral intake, weakness - History of Present Illness 68-year-old male with medical history significant for right sided renal cell cancer diagnosed in the status post nephrectomy the patient had recurrence of his disease in 2019 requiring resection of part of his long in 01/2019 and subsequent recurrence in the renal bed for which he underwent radiation treatment, who presents to the hospital with complaints of decreased oral intake, abdominal pain, weakness and diarrhea. The patient reports that since May 2019 he has been dealing with symptoms of abdominal pain, bloating and distention. The patient feels that part of this is due to dietary intake of large amounts of fibrous foods. He feels that he is had some improvement with modifications of his diet. He is also been having multiple loose bowel movements daily and excess 4-5 loose nonbloody bowel movements per day. Patient reports that prior to developing his symptoms he has never had problems with bowel movements or abdominal pain in the past. He denies any vomiting in association with his symptoms. He has had decreased oral intake secondary to the symptoms as he felt not eating improved the way he felt. He underwent EGD and colonoscopy for evaluation at [facility] in August 2019 with find ings of a hiatal hernia, Schatzki's ring and gastritis on EGD as well as findings of large ulcerated areas throughout the colon and into the terminal ileum with the largest measuring over 48 mm in size. Biopsies were taken and pathology has been provided by the patient's through his patient portal which does show chronic inflammatory changes, however pathologist no states that infectious, medication effect or other etiology cannot be excluded in the differential with inflammatory process. Review of Systems REVIEW OF SYSTEMS: CONSTITUTIONAL: Denies any fevers, chills, but does report weakness and fatigue as well as weight loss secondary to decreased oral intake. CARDIOVASCULAR: Denies any chest pain, palpitations high or low blood pressures RESPIRATORY: Denies any shortness of breath, hemoptysis or cough. GENITOURINARY: No dysuria or hematuria. MUSCULOSKELETAL: No weakness reported. SKIN: Denies any new rashes or lesions, jaundice or pallor. PSYCHIATRIC: Denies any depression or anxiety. NEUROLOGY: Denies headache, denies any new focal deficits. EARS/NOSE/THROAT: No recent hearing change, congestion, nasal discharge or sore throat. EYES: No pain in eyes, discharge or change in vision. GASTROINTESTINAL: As per HPI. Past Medical History Past Medical History: Cancer, Renal Disease Additional Past Medical History / Comment(s): right renal CA History of Any Multi-Drug Resistant Organisms: None Reported Past Surgical History: Appendectomy, Cholecystectomy, Orthopedic Surgery Additional Past Surgical History / Comment(s): right kidney, Bilateral shoulder Past Psychological History: No Psychological Hx Reported Smoking Status: Never smoker Past Alcohol Use History: None Reported Past Drug Use History: None Reported - Past Family History Father Family Medical History: No Reported History Medications and Allergies Home Medications Medication Instructions Recorded Confirmed Type Multivitamins, Thera [Multivitamin 1 tab PO DAILY 09/05/19 09/05/19 History (formulary)] Pantoprazole Sodium [Protonix] 40 mg PO AC-BID 09/05/19 09/05/19 History Tamsulosin HCl [Flomax] 0.4 mg PO HS 09/05/19 09/05/19 History Allergies Allergy/AdvReac Type Severity Reaction Status Date / Time No Known Allergies Allergy Verified 09/05/19 20:48 Physical Exam Vitals: Vital Signs Temp Pulse Pulse Pulse Pulse Resp BP 09/08/19 04:46 97.4 F L 85 16 90/58 09/07/19 20:33 99.4 F 89 16 96/59 09/07/19 16:24 98 F 94 94 96 09/07/19 16:00 89 102 H 103 H 96 16 09/07/19 12:57 98 F 89 16 BP BP BP Pulse Ox 09/08/19 04:46 97 09/07/19 20:33 97 09/07/19 16:24 108/62 101/64 101/61 09/07/19 16:00 09/07/19 12:57 89/59 99 Intake and Output 09/07/19 09/08/19 09/08/19 21:59 06:59 14:59 Intake Total Balance Intake: Intake, IV Titration Amount 0.9% NaCl with KCl 40 Meq /l 1,000 ml @ 90 mls/hr IV .[id number] [id number] Rx#: [id number] Sodium Chloride 0.9% 1, 000 ml @ 90 mls/hr IV . Q11H7M [facility] Rx#:[id number] Other: Voiding Method # Voids # Bowel Movements On physical examination, patient appears comfortable in no apparent distress. HEAD: Normocephalic, atraumatic. EYES: No scleral icterus. No conjunctival injection. MOUTH: No lesions, tongue midline. NECK: Trachea midline, no gross abnormalities. CHEST: Clear to auscultation with no wheezing or rhonchi appreciated. HEART: Regular rate and rhythm. ABDOMEN: Soft, thin and nontender to palpation. Bowel sounds are positive. No organomegaly. No guarding or rigidity. EXTREMITIES: No pedal edema. SKIN: No rashes, no jaundice. NEUROLOGIC: Alert and oriented x3. No focal deficits. Results CBC & Chem 7: 09/08/19 06:43 09/08/19 06:43 Labs: Abnormal Lab Results - Last 24 Hours (Table) 09/07/19 09/07/19 09/08/19 Range/Units 17:50 20:15 06:43 WBC 1.7 L (3.8-10.6) k/uL RBC 3.63 L (4.30-5.90) m/uL Hgb 10.7 L (13.0-17.5) gm/dL Hct 33.3 L (39.0-53.0) % Lymphocytes # 0.2 L (1.0-4.8) k/uL Sodium (137-145) mmol/L Creatinine (0.66-1.25) mg/dL Glucose (74-99) mg/dL POC Glucose (mg/dL) 145 H (75-99) mg/dL Stool Lactoferrin POSITIVE H (NEGATIVE) 09/08/19 09/08/19 Range/Units 06:43 06:56 WBC (3.8-10.6) k/uL RBC (4.30-5.90) m/uL Hgb (13.0-17.5) gm/dL Hct (39.0-53.0) % Lymphocytes # (1.0-4.8) k/uL Sodium 134 L (137-145) mmol/L Creatinine 0.65 L (0.66-1.25) mg/dL Glucose 145 H (74-99) mg/dL POC Glucose (mg/dL) 153 H (75-99) mg/dL Stool Lactoferrin (NEGATIVE) Microbiology - Last 24 Hours (Table) 09/07/19 17:50 Urine Culture - Preliminary Urine,Clean Catch Chest x-ray: report reviewed (Chest x-ray with no acute pulmonary or cardiac process noted) Assessment and Plan (1) Colitis Narrative/Plan: 68-year-old male with a history of renal cell cancer treated with nephrectomy in the with recurrence in 2019 requiring radiation therapy of the right renal bed was subsequently developed symptoms of gas, bloating, distention, abdominal pain, and loose stools. Patient currently reporting improvement in symptoms on steroid therapy. He underwent EGD and colonoscopy for evaluation at the clinic in August 2019 with findings of gastritis, nonobstructing Schatzki's ring and hiatal hernia with numerous ulcerations noted throughout the colon and in the terminal ileum. Chronic active inflammation seen on pathology from biopsies of the colon with note from pathologist stating that in addition to inflammatory process medication effect, infection or other etiology cannot be ruled out. Given the correlation of the patient's symptoms with radiation therapy suspect inflammatory changes secondary to radiation. Testing for Clostridium difficile negative and lactoferrin positive. Current Visit: Yes Status: Acute Code(s): K52.9 - NONINFECTIVE GASTROENTERITIS AND COLITIS, UNSPECIFIED SNOMED Code(s): 97401857 (2) Diarrhea Narrative/Plan: Lactoferrin positive with testing for Clostridium difficile negative. Likely secondary to above. Current Visit: Yes Status: Acute Code(s): R19.7 - DIARRHEA, UNSPECIFIED SNOMED Code(s): 91106055 Plan: Supportive care Okay for diet Extensive discussion with the patient on minimizing consumption of fibrous foods and dairy, as well as other dietary modifications Continue steroid therapy If symptoms persist consider treatments for possible small intestinal bacterial overgrowth Patient currently reporting improvement in bowel movements, if diarrhea worsens can consider further stool studies Thanks for allowing us to this patient in the care of the patient we will continue to follow
[2019-09-08] MEDS: ONDANSETRON 4 MG/2 ML VIAL IVP PRN (18:17)
[2019-09-08 20:28] LABS: Glucose,Whole Blood 155 mg/dL (75-99)
--- NOTE | 2019-09-08 21:44 | PN ---
PROGRESS NOTE The panic a medic Anaprox put for: DATE OF SERVICE: 09/08/2019 This 68-year-old gentleman admitted with significant weakness, also had history of renal cell carcinoma. The patient had radiation therapy. Patient had multiple lesions, multifocal lesions in the colon and stomach and duodenum in the endoscopies. The biopsy report from [facility] did not show any evidence of malignancy. Favors nonspecific colitis. Patient being closely monitored. Autoimmune etiology is not completely ruled out. I have discussed the case at length with Hematology/Oncology and as well as Gastroenterology. PAST MEDICAL HISTORY: Reviewed. REVIEW OF SYSTEMS: Cardiovascular system: No angina. Respiratory: As mentioned earlier. Gastrointestinal: As mentioned earlier. no dysuria. Nervous systems: No numbness or weakness. CURRENT MEDICATIONS: Reviewed and include: 1. Tylenol 650 q.6h p.r.n. 2. [place] 5 mg q.6h. 3. Xanax 0.5 t.i.d. p.r.n. 4. Folic acid 1 mg p.o. daily. 5. Heparin 5000 subcu b.i.d. 6. Solu-Medrol 60 IV q.6. 7. Potassium chloride. 8. Multivitamins. 9. Narcan 0.2 q.2 p.r.n. 10.Zofran 4 mg IV q.8h. 11.Protonix 40 mg p.o. b.i.d. 12.Flomax 0.4 daily. 13.Restoril 15 mg q.h.s. 14.Vitamin B1. 15.Thiamine 100 mg p.o. daily. PHYSICAL EXAMINATION: Patient is alert, oriented x2. Pulse is 88. Blood pressure 87/57, respirations 16, temperature 97.2, pulse ox 98% on room air. HEENT: Conjunctivae normal. Oral mucosa moist. NECK is no jugular venous distention. No carotid bruit. No lymph node enlargement. Cardiovascular system: S1, S2 muffled. No S3, no S4. RESPIRATORY: Breath sounds diminished in the bases. No rhonchi. No crackles. ABDOMEN: Soft, nontender. No mass palpable. LEGS no edema. No swelling. Central nervous system: Diffuse weakness. LAB STUDIES: WBC 11.2, hemoglobin 10.7 sodium 134. ASSESSMENT: 1. Generalized weakness and tiredness possibly dehydration secondary to diminished p.o. intake. 2. Relative hypotension. 3. Diffuse ulcerations of multiple lesions in the EGD and colonoscopy in the [facility], possibly autoimmune or colitis. 4. Right renal cancer with metastasis on radiation therapy, chemotherapy pending. 5. Anemia, normocytic. 6. Relative hypotension. 7. Hyponatremia. 8. Mild coagulopathy. 9. Hypoalbuminemia. 10.Severe protein calorie protein calorie malnutrition with BMI of 18. 11.History of degenerative joint disease. 12.History of right nephrectomy. 13.History of appendectomy. 14.History of cholecystectomy. 15.FULL CODE. 16.Diarrhea, improving. RECOMMENDATIONS AND DISCUSSION: In this 71-year-old gentleman who presented with multiple complex medical issues, we will monitor the patient closely, continue the current medications, management and symptomatic treatment. We will initiate empiric IV steroids and monitor closely. Otherwise, monitor blood sugars closely. As I mentioned, I would also recommend Maciel and we will continue to follow with multiple consultants as mentioned earlier. Discussed with Dr. Cooper and as well as Dr. Dykes. See orders for details. Further recommendations to follow. MMODL / IJN: [id number] /
[2019-09-08] MEDS: FLUDROCORTISONE 0.1 MG TAB PO SCH (21:47)
[2019-09-08] MEDS: TAMSULOSIN 0.4 MG CAP.ER.24H PO SCH (21:47)
[2019-09-09] MEDS: methylPREDNISolone SOD SUCCI 125 MG/2 ML VIAL IV SCH ×4 (00:07→17:44)
[2019-09-09] MEDS: ONDANSETRON 4 MG/2 ML VIAL IVP PRN ×2 (02:27→17:44)
[2019-09-09] MEDS: 0.9% NACL WITH KCL 40 MEQ/L 1,000 ML IV SCH ×3 (04:48→21:37)
[2019-09-09 07:04] LABS: Glucose,Whole Blood 134 mg/dL (75-99)
[2019-09-09 07:43] LABS: Basophils % (A) 0 %; Eosinophils % (A) 1 %; HCT 29.9 % (39.0-53.0); HGB 9.7 gm/dL (13.0-17.5); Lymphocytes # (A) 0.3 k/uL (1.0-4.8); Lymphocytes % (A) 10 %; MCH 29.6 pg (25.0-35.0); MCHC 32.5 g/dL (31.0-37.0); MCV 91.1 fL (80.0-100.0); Mean Platelet Volume 7.2; Monocytes # (A) 0.1 k/uL (0-1.0); Monocytes % (A) 4 %; Neutrophils # (A) 2.7 k/uL (1.3-7.7); Neutrophils % (A) 84 %; Platelet Count 328 k/uL (150-450); RBC 3.28 m/uL (4.30-5.90); RDW 12.3 % (11.5-15.5); WBC 3.3 k/uL (3.8-10.6)
[2019-09-09 07:47] LABS: African American GFR (CKD) >90 (>60 ml/min/1.73 sqM); Anion Gap 7 mmol/L; Blood Urea Nitrogen 18 mg/dL (9-20); Calcium 8.3 mg/dL (8.4-10.2); Carbon Dioxide 22 mmol/L (22-30); Chloride 106 mmol/L (98-107); Glucose 137 mg/dL (74-99); Non-African American GFR(CKD) >90 (>60 ml/min/1.73 sqM); Potassium 3.8 mmol/L (3.5-5.1); Sodium 135 mmol/L (137-145)
[2019-09-09] MEDS: INSULIN ASPART (NovoLOG) 100 UNIT/ML VIAL SQ SCH ×4 (10:40→21:36)
[2019-09-09] MEDS: MULTIVITAMINS, THERA 1 EACH TAB PO SCH (10:40)
[2019-09-09] MEDS: PANTOPRAZOLE 40 MG TABLET PO SCH ×2 (10:40→17:46)
[2019-09-09] MEDS: FLUDROCORTISONE 0.1 MG TAB PO SCH (10:40)
[2019-09-09] MEDS: NYSTATIN 100,000 UNIT/ML SUSP 500,000 UNIT/5 ML CUP PO SCH ×4 (10:41→21:36)
[2019-09-09] MEDS: HEPARIN SODIUM,PORCINE 5,000 UNIT/ML 1 ML VIAL SQ SCH ×2 (10:41→21:37)
[2019-09-09 11:28] LABS: Glucose,Whole Blood 140 mg/dL (75-99)
[2019-09-09 12:01] LABS: Anti-Endomysial IgA Antibody <1:10 Titer (<1:10)
[2019-09-09 12:57] LABS: Gliadin AB IgA, Deaminated NEGATIVE (NEGATIVE); Gliadin AB IgA, Unit 4.2 U/mL; Gliadin AB IgG, Deaminated NEGATIVE (NEGATIVE)
[2019-09-09] MEDS: THIAMINE 100 MG TAB PO SCH (13:42)
[2019-09-09] MEDS: FOLIC ACID 1 MG TAB PO SCH (13:42)
--- NOTE | 2019-09-09 14:54 | P.PN ---
Subjective Progress Note Date: 09/09/19 Principal diagnosis: Abdominal pain, diarrhea, decreased oral intake, weakness The patient was seen and examined sitting up at the bedside. Patient denies any abdominal pain or diarrhea. He reports tolerating his breakfast this morning. Has had no bowel movement today. Patient states he did have a small amount of emesis this morning after taking his medications. Patient denies any coffee- ground or bright red emesis. Objective - Vital Signs Vital signs: Vital Signs Temp 97.9 F 09/09/19 11:47 Pulse 63 09/09/19 11:47 Resp 17 09/09/19 11:47 BP 106/61 09/09/19 11:47 Pulse Ox 99 09/09/19 11:47 Intake & Output 09/08/19 09/09/19 09/09/19 18:59 06:59 18:59 Intake Total 720 315 Balance 720 315 Weight 53.796 kg Intake: Intake, IV Titration 720 315 Amount 0.9% NaCl with KCl 40 Meq 720 315 /l 1,000 ml @ 90 mls/hr IV .Q11H7M [facility] Rx#: [id number] Other: Voiding Method Toilet Toilet Toilet # Voids 1 2 - Exam General appearance: The patient is alert, oriented, in no acute distress. HET: Head is normocephalic and atraumatic. Pupils are equal and reactive. EYES: No scleral icterus. No conjunctival injection. Neck: Supple without lymphadenopathy. Trachea midline. Heart: S1 S2. Regular rate and rhythm. Lungs: No crackles or wheezes are heard. Abdomen: Soft, nontender, nondistended with bowel sounds. No peritoneal signs. No palpable organomegaly or masses. Extremities: No edema. Skin: No rashes or jaundice. Neurological: No focal deficits. - Labs CBC & Chem 7: 09/09/19 07:08 09/09/19 07:08 Labs: Abnormal Lab Results - Last 24 Hours (Table) 09/08/19 09/08/19 09/09/19 Range/Units 17:03 20:26 07:03 WBC (3.8-10.6) k/uL RBC (4.30-5.90) m/uL Hgb (13.0-17.5) gm/dL Hct (39.0-53.0) % Lymphocytes # (1.0-4.8) k/uL Sodium (137-145) mmol/L Creatinine (0.66-1.25) mg/dL Glucose (74-99) mg/dL POC Glucose (mg/dL) 197 H 155 H 134 H (75-99) mg/dL Calcium (8.4-10.2) mg/dL 09/09/19 09/09/19 09/09/19 Range/Units 07:08 07:08 11:27 WBC 3.3 L (3.8-10.6) k/uL RBC 3.28 L (4.30-5.90) m/uL Hgb 9.7 L (13.0-17.5) gm/dL Hct 29.9 L (39.0-53.0) % Lymphocytes # 0.3 L (1.0-4.8) k/uL Sodium 135 L (137-145) mmol/L Creatinine 0.57 L (0.66-1.25) mg/dL Glucose 137 H (74-99) mg/dL POC Glucose (mg/dL) 140 H (75-99) mg/dL Calcium 8.3 L (8.4-10.2) mg/dL Microbiology - Last 24 Hours (Table) 09/07/19 11:20 Blood Culture - Preliminary Blood No Growth after 48 hours 09/07/19 17:50 Urine Culture - Final Urine,Clean Catch Assessment and Plan Assessment: #1 colitis #2 diarrhea Plan: Continue with supportive care. Continue IV Solu-Medrol, will transition to oral prednisone in the morning. Diarrhea has improved, C. diff was negative, if diarrhea returns further stool studies can be considered. Will request EGD and colonoscopy reports from the [facility]. Continue with Zofran as needed for nausea and Protonix 40 mg twice a day. The above dictated assessment and findings were discussed with Dr. Durant. The impression and plan of care have been directed as dictated.
[2019-09-09 16:59] LABS: Glucose,Whole Blood 151 mg/dL (75-99)
[2019-09-09 19:52] LABS: Glucose,Whole Blood 158 mg/dL (75-99)
[2019-09-09] MEDS: TAMSULOSIN 0.4 MG CAP.ER.24H PO SCH (21:36)
--- NOTE | 2019-09-09 22:13 | PN ---
PROGRESS NOTE DATE OF SERVICE: 09/09/2019 This 68-year-old gentleman who was admitted with significant weakness, was thought to have diminished p.o. intake. The patient apparently also had colitis-like picture. Patient started on IV steroids with significant symptomatic improvement. Gastroenterology following the patient closely. No chest pain, no palpitation. PHYSICAL EXAMINATION: Alert and oriented x3. Pulse 81 blood pressure 116/70, respiration 18, temperature 98.2, pulse ox 98% on room air skin: HEENT: Conjunctivae normal. Oral mucosa moist. NECK: No jugular venous distention. No lymph node enlargement. CARDIOVASCULAR: S1, S2. RESPIRATORY: Diminished breath sounds at the bases. A few scattered rhonchi. ABDOMEN: Soft, nontender. LEGS: No edema, no swelling. NERVOUS SYSTEM: No focal deficits. LABS: WBC 3.3, hemoglobin 9.7, glucose noted. Sodium 135. ASSESSMENT: 1. Generalized weakness and tiredness, possibly dehydration secondary to diminished p.o. intake. 2. Relative hypotension. 3. Diffuse ulcerations and multiple lesions, EGD, colonoscopy clinically, possibly autoimmune colitis. 4. Right renal cancer with metastasis, on radiation therapy, chemotherapy pending. 5. Anemia, normocytic. 6. Hyponatremia. 7. Mild coagulopathy. 8. Hypoalbuminemia. 9. Severe protein calorie malnutrition with BMI of 18. 10.History of degenerative joint disease. 11.History of right nephrectomy. 12.History of appendectomy. 13.History of cholecystectomy. 14.FULL CODE. 15.Diarrhea, improved. RECOMMENDATIONS AND DISCUSSION: In this 68-year-old gentleman who presented with multiple complex medical issues as mentioned, at this time will continue the current management, continue symptomatic treatment, continue with IV steroids, monitor blood sugars closely. Taper to p.o. steroids tomorrow morning and once the patient is feeling better the patient could be discharged home and with further recommendations to attend [facility] for the followup. Otherwise, prognosis guarded. Further recommendations to follow. MMODL / IJN: [id number] /
[2019-09-10] MEDS: methylPREDNISolone SOD SUCCI 125 MG/2 ML VIAL IV SCH ×2 (00:02→05:50)
[2019-09-10] MEDS: ONDANSETRON 4 MG/2 ML VIAL IVP PRN ×2 (01:20→09:13)
[2019-09-10] MEDS: 0.9% NACL WITH KCL 40 MEQ/L 1,000 ML IV SCH ×2 (04:05→20:35)
[2019-09-10 07:02] LABS: Glucose,Whole Blood 111 mg/dL (75-99)
[2019-09-10] MEDS: INSULIN ASPART (NovoLOG) 100 UNIT/ML VIAL SQ SCH ×4 (08:42→20:35)
[2019-09-10] MEDS: FOLIC ACID 1 MG TAB PO SCH (09:00)
[2019-09-10] MEDS: THIAMINE 100 MG TAB PO SCH (09:00)
[2019-09-10] MEDS: HEPARIN SODIUM,PORCINE 5,000 UNIT/ML 1 ML VIAL SQ SCH ×2 (09:00→20:34)
[2019-09-10] MEDS: MULTIVITAMINS, THERA 1 EACH TAB PO SCH (09:00)
[2019-09-10] MEDS: FLUDROCORTISONE 0.1 MG TAB PO SCH (09:00)
[2019-09-10] MEDS: NYSTATIN 100,000 UNIT/ML SUSP 500,000 UNIT/5 ML CUP PO SCH ×4 (09:00→20:39)
[2019-09-10] MEDS: PANTOPRAZOLE 40 MG TABLET PO SCH ×2 (09:00→17:36)
[2019-09-10] MEDS ORDERED: PROCHLORPERAZINE 5 MG TAB PO PRN (09:51)
[2019-09-10] MEDS ORDERED: POLYETHYLENE GLYCOL 3350 17 GM POWD.PACK PO PRN (09:51)
[2019-09-10 11:49] LABS: Glucose,Whole Blood 116 mg/dL (75-99)
--- NOTE | 2019-09-10 16:13 | P.PN ---
Subjective Progress Note Date: 09/10/19 Principal diagnosis: Hx RCC, failure to thrive Pt still not doing well, poor oral intake, progressive weakness. Objective - Vital Signs Vital signs: Vital Signs Temp 97.4 F L 09/10/19 12:50 Pulse 73 09/10/19 15:43 Resp 16 09/10/19 15:43 BP 93/58 09/10/19 12:50 Pulse Ox 99 09/10/19 12:50 Intake & Output 09/09/19 09/10/19 09/10/19 18:59 06:59 18:59 Intake Total 720 990 60 Output Total 2 Balance 720 988 60 Weight 53.796 kg Intake: Intake, IV Titration 720 990 Amount 0.9% NaCl with KCl 40 Meq 720 990 /l 1,000 ml @ 90 mls/hr IV .Q11H7M [facility] Rx#: [id number] Blood Product 60 Output: Emesis 2 Other: Voiding Method Toilet Toilet Toilet # Voids 2 1 1 # Bowel Movements 0 - Constitutional General appearance: Present: cooperative, no acute distress, thin - EENT Eyes: Present: anicteric sclerae, EOMI ENT: Present: hearing grossly normal - Respiratory Respiratory: bilateral: CTA - Cardiovascular Heart sounds: normal: S1, S2 - Peripheral edema leg Peripheral Edema: bilateral: None - Gastrointestinal General gastrointestinal: Present: normal bowel sounds, soft - Integumentary Integumentary: Present: pale - Neurologic Neurologic: Present: CNII-XII intact - Musculoskeletal Musculoskeletal: Present: generalized weakness - Psychiatric Psychiatric: Present: A&O x's 3, appropriate affect, intact judgment & insight - Labs CBC & Chem 7: 09/09/19 07:08 09/09/19 07:08 Labs: Abnormal Lab Results - Last 24 Hours (Table) 09/09/19 09/09/19 09/10/19 Range/Units 16:58 19:51 07:00 POC Glucose (mg/dL) 151 H 158 H 111 H (75-99) mg/dL 09/10/19 Range/Units 11:48 POC Glucose (mg/dL) 116 H (75-99) mg/dL Microbiology - Last 24 Hours (Table) 09/07/19 11:20 Blood Culture - Preliminary Blood No Growth after 72 hours Assessment and Plan (1) Failure to thrive in adult Current Visit: Yes Status: Acute Priority: High Code(s): R62.7 - ADULT FAILURE TO THRIVE SNOMED Code(s): 689119471 (2) Weakness Current Visit: Yes Status: Acute Priority: High Code(s): R53.1 - WEAKNESS SNOMED Code(s): 48626290 (3) Renal cell cancer Current Visit: Yes Status: Chronic Priority: Medium Code(s): C64.9 - M ALIGNANT NEOPLASM OF UNSP KIDNEY, EXCEPT RENAL PELVIS SNOMED Code(s): 702 300633 Plan: Pt needs to f/u at [facility] as scheduled re: gastric issues and Hx of RCC Celiac labs are negative thus far GI following
[2019-09-10] MEDS: ONDANSETRON 4 MG/2 ML VIAL IVP SCH ×2 (16:37→23:41)
[2019-09-10 17:08] LABS: Glucose,Whole Blood 180 mg/dL (75-99)
--- NOTE | 2019-09-10 19:34 | PN ---
PROGRESS NOTE DATE OF DICTATION: 09/10/2019 The patient is a 68-year-old pleasant white male who was admitted to the hospital with diarrhea, abdominal pain and weakness. He was seen by Dr. Cooper in consultation. He had an esophagogastroduodenoscopy and colonoscopy at [facility] and was noted to have multiple large ulcerations scattered throughout the colon, biopsies of which are not available at the time of dictation. Because of the severe diarrhea, he was empirically started on Solu-Medrol 20 mg q.8 hours, and the patient improved significantly. He was switched to prednisone 40 mg daily. Today he had one bowel movement so far, feeling better. No symptoms. PHYSICAL EXAMINATION: On physical examination, he appears comfortable, in no apparent distress. VITAL SIGNS: Vital signs are stable. Blood pressure is 93/58, pulse rate 94, temperature 97.4. HEENT examination unremarkable. Conjunctivae pink. Sclerae icteric. Oral cavity no lesions. NECK: No JVD or lymph node enlargement. CHEST: Clear to auscultation. HEART: Regular rate and rhythm. ABDOMEN: Soft. Bowel sounds are positive. No organomegaly. EXTREMITIES: No pedal edema. SKIN: No rashes. NEURO: Alert and oriented x3. No focal deficits. LABS: WBC 3.3, hemoglobin 9.7, platelets normal. Basic metabolic panel was within normal limits. Stool lactoferrin was positive. The rest of the labs were negative. IMPRESSION: Acute colitis with recent colonoscopy that showed multiple scattered ulcerations throughout the colon. Rule out infectious etiology. Patient was empirically started on Dictation ends abruptly. MMODL / IJN: [id number] /
[2019-09-10 20:17] LABS: Glucose,Whole Blood 153 mg/dL (75-99)
[2019-09-10] MEDS: TAMSULOSIN 0.4 MG CAP.ER.24H PO SCH (20:34)
[2019-09-10] MEDS: HYDROcodone/APAP 5-325MG 1 EACH TAB PO PRN (23:45)
[2019-09-11] MEDS: 0.9% NACL WITH KCL 40 MEQ/L 1,000 ML IV SCH ×3 (01:20→23:02)
[2019-09-11 07:40] LABS: Glucose,Whole Blood 74 mg/dL (75-99)
[2019-09-11] MEDS: INSULIN ASPART (NovoLOG) 100 UNIT/ML VIAL SQ SCH ×4 (08:03→20:13)
[2019-09-11] MEDS: HYDROcodone/APAP 5-325MG 1 EACH TAB PO PRN ×3 (08:04→23:01)
[2019-09-11] MEDS: PANTOPRAZOLE 40 MG TABLET PO SCH ×2 (08:04→16:56)
[2019-09-11] MEDS: MULTIVITAMINS, THERA 1 EACH TAB PO SCH (08:04)
[2019-09-11] MEDS: FOLIC ACID 1 MG TAB PO SCH (08:04)
[2019-09-11] MEDS: THIAMINE 100 MG TAB PO SCH (08:04)
[2019-09-11] MEDS: ONDANSETRON 4 MG/2 ML VIAL IVP SCH ×3 (08:05→23:02)
[2019-09-11] MEDS: HEPARIN SODIUM,PORCINE 5,000 UNIT/ML 1 ML VIAL SQ SCH ×2 (08:05→20:56)
[2019-09-11] MEDS: NYSTATIN 100,000 UNIT/ML SUSP 500,000 UNIT/5 ML CUP PO SCH ×4 (08:06→20:56)
[2019-09-11] MEDS: FLUDROCORTISONE 0.1 MG TAB PO SCH (08:06)
[2019-09-11] MEDS: predniSONE 20 MG TAB PO SCH (08:06)
--- NOTE | 2019-09-11 08:21 | P.PN ---
Subjective Progress Note Date: 09/10/19 Principal diagnosis: This is a 68-year-old male who was recently admitted with significant weakness and was thought to have diminished oral intake and is being closely monitored. Patient presenting like colitis. GI following. Patient has been on IV steroids and is being transitioned oral prednisone. Patient follows at the [facility] is currently receiving treatment and will follow-up in the outpatient setting. Per nursing staff and the patient, patient experienced severe nausea with vomiting throughout the night and was unable to tolerate foods or even medications. Patient states he continues to be quite weak with slow improvement. This morning he tolerated breakfast and lunch with no vomiting or nausea noted. Currently no reports of chest pain, shortness of breath, or palpitations. Patient is afebrile. Will continue to monitor closely. Objective - Vital Signs Vital signs: Vital Signs Temp 97.4 F L 09/10/19 12:50 Pulse 73 09/10/19 12:50 Resp 16 09/10/19 12:50 BP 93/58 09/10/19 12:50 Pulse Ox 99 09/10/19 12:50 Intake & Output 09/09/19 09/10/19 09/10/19 18:59 06:59 18:59 Intake Total 720 990 60 Output Total 2 Balance 720 988 60 Weight 53.796 kg Intake: Intake, IV Titration 720 990 Amount 0.9% NaCl with KCl 40 Meq 720 990 /l 1,000 ml @ 90 mls/hr IV .Q11H7M [facility] Rx#: [id number] Blood Product 60 Output: Emesis 2 Other: Voiding Method Toilet Toilet Toilet # Voids 2 1 1 # Bowel Movements 0 - Exam Gen: This is a 68-year-old male sitting up in the chair, awake, alert and oriented 3, well-developed, well-nourished. Temp is 97.4F, pulse is 73, respirations are 16, blood pressure 93/58, oxygen saturation is 99% on room air. HEENT: Head is atraumatic, normocephalic. Pupils equal, round. Sclerae is anicteric. NECK: Supple. No JVD. No lymphadenopathy. No thyromegaly. LUNGS: Diminished breath sounds at the bases with a few scattered rhonchi noted. No wheezes noted. No intercostal retractions. HEART: S1, S2 are muffled ABDOMEN: Soft. Thin. Bowel sounds are present. No masses. No tenderness. EXTREMITIES: No pedal edema. No calf tenderness. NEUROLOGICAL: Patient is awake, alert and oriented x3. Cranial nerves 2 through 12 are grossly intact. - Labs CBC & Chem 7: 09/09/19 07:08 09/09/19 07:08 Labs: Abnormal Lab Results - Last 24 Hours (Table) 09/09/19 09/09/19 09/10/19 Range/Units 16:58 19:51 07:00 POC Glucose (mg/dL) 151 H 158 H 111 H (75-99) mg/dL 09/10/19 Range/Units 11:48 POC Glucose (mg/dL) 116 H (75-99) mg/dL Microbiology - Last 24 Hours (Table) 09/07/19 11:20 Blood Culture - Preliminary Blood No Growth after 72 hours Assessment and Plan Assessment: Generalized weakness and tiredness, possibly dehydration secondary to diminished by mouth intake Relative hypotension Diffuse ulcerations and multiple lesions, EGD, colonoscopy clinically, possibly autoimmune colitis Right renal cancer with metastasis, on radiation therapy, chemotherapy pending Anemia, normocytic Hyponatremia mild coagulopathy Hypoalbuminemia Severe protein calorie malnutrition with a BMI of 18 History of degenerative joint disease next line history of right nephrectomy History of appendectomy History of cholecystectomy Full code Diarrhea, improved Recommendations and discussion: Recommend to continue current management, current medications, and symptomatic treatment. IV steroids being transitioned oral prednisone. Due to multiple co mplex medical issues, prognosis is guarded. Further recommendations to follow. Possible discharge in 24-48 hours.
[2019-09-11 11:47] LABS: Basophils % (A) 0 %; Eosinophils % (A) 1 %; HGB 11.1 gm/dL (13.0-17.5); Lymphocytes # (A) 0.2 k/uL (1.0-4.8); Lymphocytes % (A) 6 %; MCHC 32.6 g/dL (31.0-37.0); Monocytes # (A) 0.1 k/uL (0-1.0); Monocytes % (A) 4 %; Neutrophils # (A) 3.6 k/uL (1.3-7.7); Neutrophils % (A) 89 %; Platelet Count 321 k/uL (150-450); RDW 12.7 % (11.5-15.5)
[2019-09-11 12:03] LABS: ALT 19 U/L (4-49); AST 16 U/L (17-59); African American GFR (CKD) >90 (>60 ml/min/1.73 sqM); Albumin 2.5 g/dL (3.5-5.0); Alkaline Phosphatase 37 U/L (38-126); Anion Gap 5 mmol/L; Blood Urea Nitrogen 16 mg/dL (9-20); Calcium 8.3 mg/dL (8.4-10.2); Carbon Dioxide 26 mmol/L (22-30); Chloride 103 mmol/L (98-107); Glucose 96 mg/dL (74-99); Non-African American GFR(CKD) >90 (>60 ml/min/1.73 sqM); Sodium 134 mmol/L (137-145); Total Bilirubin 0.6 mg/dL (0.2-1.3); Total Protein 4.9 g/dL (6.3-8.2)
--- NOTE | 2019-09-11 15:33 | P.PN ---
Subjective Progress Note Date: 09/11/19 Principal diagnosis: This is a 68-year-old male who was recently admitted with significant weakness and was thought to have diminished oral intake and is being closely monitored. Patient presenting like colitis. GI following. Patient has been on IV steroids and is being transitioned oral prednisone. Patient follows at the [facility] is currently receiving treatment and will follow-up in the outpatient setting. Per nursing staff and the patient, patient experienced severe nausea with vomiting throughout the night and was unable to tolerate foods or even medications. Patient states he continues to be quite weak with slow improvement. This morning he tolerated breakfast and lunch with no vomiting or nausea noted. Currently no reports of chest pain, shortness of breath, or palpitations. Patient is afebrile. Will continue to monitor closely. 09/11/2019 Patient is seen and evaluated and follow-up stating that he had a rough night of feeling extremely weak and fatigued and not able to eat much. Patient states he did pick at some of his breakfast although continues to have some nausea. No vomiting. Oncology is following. Patient states that his follow-up with [facility] is 09/20/2019. Currently no reports of chest pain, shortness of breath, or palpitations. Patient is afebrile. No recent reports of vomiting although intermittent nausea at times with some mild abdominal discomfort. Will continue to monitor closely. Objective - Vital Signs Vital signs: Vital Signs Temp 97.9 F 09/11/19 11:44 Pulse 72 09/11/19 11:44 Resp 14 09/11/19 11:44 BP 92/61 09/11/19 11:44 Pulse Ox 97 09/11/19 11:44 Intake & Output 09/10/19 09/11/19 09/11/19 18:59 06:59 18:59 Intake Total 60 720 Output Total 0 Balance 60 720 Intake: Intake, IV Titration 720 Amount 0.9% NaCl with KCl 40 Meq 720 /l 1,000 ml @ 90 mls/hr IV .Q11H7M [facility] Rx#: [id number] Blood Product 60 Output: Emesis 0 Other: Voiding Method Toilet Toilet Toilet # Voids 1 1 - Exam Gen: This is a 68-year-old male sitting up in the chair, awake, alert and oriented 3, well-developed, well-nourished. Temp is 97.5F, pulse is 67, respirations are 16, blood pressure 92/60, oxygen saturation is 96% on room air. Orthostatic vitals within normal limits HEENT: Head is atraumatic, normocephalic. Pupils equal, round. Sclerae is anicteric. NECK: Supple. No JVD. No lymphadenopathy. No thyromegaly. LUNGS: Diminished breath sounds at the bases with a few scattered rhonchi noted. No wheezes noted. No intercostal retractions. HEART: S1, S2 are muffled ABDOMEN: Soft. Thin. Bowel sounds are present. No masses. No tenderness. EXTREMITIES: No pedal edema. No calf tenderness. NEUROLOGICAL: Patient is awake, alert and oriented x3. Cranial nerves 2 through 12 are grossly intact. - Labs CBC & Chem 7: 09/11/19 11:09/11/19: Labs: Abnormal Lab Results - Last 24 Hours (Table) 09/10/19 09/10/19 09/11/19 Range/Units 17:06 20:16 07:11 RBC (4.30-5.90) m/uL Hgb (13.0-17.5) gm/dL Hct (39.0-53.0) % Lymphocytes # (1.0-4.8) k/uL Sodium (137-145) mmol/L Creatinine (0.66-1.25) mg/dL POC Glucose (mg/dL) 180 H 153 H 74 L (75-99) mg/dL Calcium (8.4-10.2) mg/dL AST (17-59) U/L Alkaline Phosphatase (38-126) U/L Total Protein (6.3-8.2) g/dL Albumin (3.5-5.0) g/dL 09/11/19 09/11/19 Range/Units : 11: RBC 3.70 L (4.30-5.90) m/uL Hgb 11.1 L (13.0-17.5) gm/dL Hct 34.0 L (39.0-53.0) % Lymphocytes # 0.2 L (1.0-4.8) k/uL Sodium 134 L (137-145) mmol/L Creatinine 0.63 L (0.66-1.25) mg/dL POC Glucose (mg/dL) (75-99) mg/dL Calcium 8.3 L (8.4-10.2) mg/dL AST 16 L (17-59) U/L Alkaline Phosphatase 37 L (38-126) U/L Total Protein 4.9 L (6.3-8.2) g/dL Albumin 2.5 L (3.5-5.0) g/dL Microbiology - Last 24 Hours (Table) 09/07/19 11:20 Blood Culture - Preliminary Blood No Growth after 96 hours Assessment and Plan Assessment: Generalized weakness and tiredness, possibly dehydration secondary to diminished by mouth intake Relative hypotension Diffuse ulcerations and multiple lesions, EGD, colonoscopy clinically, possibly autoimmune colitis Right renal cancer with metastasis, on radiation therapy, chemotherapy pending Anemia, normocytic Hyponatremia mild coagulopathy Hypoalbuminemia Severe protein calorie malnutrition with a BMI of 18 History of degenerative joint disease next line history of right nephrectomy History of appendectomy History of cholecystectomy Full code Diarrhea, improved Recommendations and discussion: Recommend to continue current management, current medications, and symptomatic treatment. Currently on oral prednisone. Due to multiple complex medical issues, prognosis is guarded. Further recommendations to follow. Patient does have a follow-up with the [facility] on 09/20/2019. Possible discharge in 24-48 hours.
[2019-09-11 17:33] LABS: Glucose,Whole Blood 135 mg/dL (75-99)
[2019-09-11 19:48] LABS: Glucose,Whole Blood 136 mg/dL (75-99)
[2019-09-11] MEDS: TAMSULOSIN 0.4 MG CAP.ER.24H PO SCH (20:56)
[2019-09-11] MEDS ORDERED: ESCITALOPRAM 10 MG TAB PO SCH (21:00)
--- NOTE | 2019-09-11 21:56 | PN ---
PROGRESS NOTE DATE OF DICTATION: 09/11/2019 Patient is a 68-year-old pleasant white male admitted to the hospital with abdominal pain, diarrhea, on prednisone 40 mg daily. He is doing better. He had no bowel movements today. Yesterday he had one soft bowel movement. Overall he is feeling better. He was started on antidepressants this morning. He denies any symptoms. PHYSICAL EXAMINATION: Appears comfortable. No apparent distress. VITAL SIGNS: Stable. Blood pressure 102/65, pulse rate 68, temperature 97.6. HEENT examination unremarkable. Conjunctivae pink. Sclerae anicteric. Oral cavity no lesions. NECK: No JVD or lymph node enlargement. CHEST: Clear to auscultation. HEART: Regular rate and rhythm. ABDOMEN: Benign. Bowel sounds are positive. No organomegaly. EXTREMITIES: No pedal edema. SKIN: No rashes. NEUROLOGIC: Alert and oriented x3. No focal deficits. LABS: WBC 4, hemoglobin 11.1, platelets normal. Basic metabolic panel is within normal limits. AST and ALT are within normal limits. IMPRESSION: 1. Lower abdominal pain and diarrhea for the last few weeks. Colonoscopy at [facility] 10 days ago showed evidence of multiple scattered large ulcerations throughout the colon. Biopsies were pending. He was treated empirically with steroids and has responded significantly. Presently on prednisone 40 mg daily, doing better. 2. Anxiety, depression, on medications. 3. History of renal cell cancer, status post surgery followed by chemotherapy. RECOMMENDATIONS: 1. Continue with prednisone 40 mg daily and taper it by 10 mg every week. 2. The patient has an appointment at [facility] GI [facility] next week. 3. Continue with current medications. Will follow with you closely. MMODL / IJN: [id number] /
[2019-09-12 05:12] VITALS: RESP 16
[2019-09-12 07:13] LABS: Glucose,Whole Blood 85 mg/dL (75-99)
[2019-09-12 07:46] LABS: African American GFR (CKD) >90 (>60 ml/min/1.73 sqM); Anion Gap 5 mmol/L; Blood Urea Nitrogen 15 mg/dL (9-20); Calcium 7.9 mg/dL (8.4-10.2); Carbon Dioxide 26 mmol/L (22-30); Chloride 102 mmol/L (98-107); Glucose 77 mg/dL (74-99); Non-African American GFR(CKD) >90 (>60 ml/min/1.73 sqM); Potassium 3.9 mmol/L (3.5-5.1); Sodium 133 mmol/L (137-145)
[2019-09-12] MEDS: INSULIN ASPART (NovoLOG) 100 UNIT/ML VIAL SQ SCH ×3 (08:30→17:40)
[2019-09-12] MEDS: ONDANSETRON 4 MG/2 ML VIAL IVP SCH ×2 (08:34→17:39)
[2019-09-12] MEDS: PANTOPRAZOLE 40 MG TABLET PO SCH ×2 (08:34→17:39)
[2019-09-12] MEDS: MULTIVITAMINS, THERA 1 EACH TAB PO SCH (08:34)
[2019-09-12] MEDS: predniSONE 20 MG TAB PO SCH (08:34)
[2019-09-12] MEDS: HEPARIN SODIUM,PORCINE 5,000 UNIT/ML 1 ML VIAL SQ SCH (08:34)
[2019-09-12] MEDS: FLUDROCORTISONE 0.1 MG TAB PO SCH (08:35)
[2019-09-12] MEDS: NYSTATIN 100,000 UNIT/ML SUSP 500,000 UNIT/5 ML CUP PO SCH ×3 (08:35→17:40)
[2019-09-12] MEDS: HYDROcodone/APAP 5-325MG 1 EACH TAB PO PRN ×2 (08:42→17:38)
[2019-09-12 08:52] LABS: Basophils % (A) 0 %; Eosinophils # (A) 0.1 k/uL (0-0.7); Eosinophils % (A) 2 %; HCT 29.8 % (39.0-53.0); Lymphocytes # (A) 0.5 k/uL (1.0-4.8); Lymphocytes % (A) 14 %; MCH 28.9 pg (25.0-35.0); MCV 90.6 fL (80.0-100.0); Mean Platelet Volume 7.7; Monocytes # (A) 0.2 k/uL (0-1.0); Monocytes % (A) 7 %; Neutrophils # (A) 2.5 k/uL (1.3-7.7); Neutrophils % (A) 76 %; Platelet Count 291 k/uL (150-450); RBC 3.29 m/uL (4.30-5.90); RDW 12.5 % (11.5-15.5); WBC 3.2 k/uL (3.8-10.6)
[2019-09-12 08:56] LABS: HGB 9.5 gm/dL (13.0-17.5)
[2019-09-12] MEDS ORDERED: METOCLOPRAMIDE 5 MG/ML 2 ML VIAL IVP STA (09:27)
[2019-09-12 11:26] LABS: Glucose,Whole Blood 102 mg/dL (75-99)
[2019-09-12 11:46] VITALS: BP 96/60; PULSE 80; TEMP 98.1
[2019-09-12] MEDS: FOLIC ACID 1 MG TAB PO SCH (13:17)
[2019-09-12] MEDS: THIAMINE 100 MG TAB PO SCH (13:17)
[2019-09-12] MEDS: 0.9% NACL WITH KCL 40 MEQ/L 1,000 ML IV SCH (13:18)
[2019-09-12 17:11] LABS: Glucose,Whole Blood 157 mg/dL (75-99)
--- NOTE | 2019-09-13 00:11 | PN ---
PROGRESS NOTE DATE OF SERVICE: September 12, 2019 The patient is a 68-year-old pleasant white male admitted to the hospital with abdominal pain, abdominal distention and diarrhea started on empiric steroids for colitis and symptoms significantly improved. Presently on prednisone 40 mg daily. Doing much better. Also has history of depression, started on antidepressants and overall he is doing much better. He is going to be discharged home today. On physical examination, the blood pressure is 130/86, pulse rate 80, temperature 98. HEENT: Unremarkable. Conjunctivae pink. Sclerae anicteric. Oral cavity no lesions. NECK: No JVD or lymph node enlargement. CHEST: Clear to auscultation. HEART: Regular rate and rhythm. ABDOMEN: Soft. Bowel sounds are positive. No organomegaly. EXTREMITIES: No pedal edema. SKIN no rashes. NEURO: He is alert and oriented times three. No focal deficits. LABS: No labs available from today. IMPRESSION: 1. Diarrhea of several weeks' duration, status post colonoscopy at [facility] 2 weeks ago that showed multiple large ulcerations scattered throughout the entire colon, biopsies which were not available. She was empirically started on Solu- Medrol and presently on Prednisone 40 mg daily, symptoms have significantly improved. The patient doing much better. 2. History of depression, on Lexapro, gradually improving. 3. History of for which he underwent surgery 2 years ago with recurrence, status post radiation therapy in May 2018 at [facility]. RECOMMENDATIONS: 1. Continue with prednisone 40 mg a day. He was advised to taper it by 10 mg every week. 2. He has an appointment to follow up with [facility] next Monday. 3. He was advised to follow up in the office following appointment at the [facility] in a month. Thank you for this consultation. MMODL / IJN: [id number] /
--- NOTE | 2019-09-13 09:11 | P.DS ---
Providers Date of admission: 09/07/19 14:02 Expected date of discharge: 09/13/19 Attending physician: Isaak Pierce MD Consults: 09/06/19 11:35 Consult Physician Routine Consulting Provider: Jim Dykes Consult Reason/Comments: renal CA Do you want consulting provider notified?: Yes 09/07/19 19:06 Consult Physician Routine Consulting Provider: Acosta Cooper Consult Reason/Comments: colitis Do you want consulting provider notified?: Yes Primary care physician: [facility] Hospital Course: Final diagnosis Generalized weakness and tiredness, possibly dehydration secondary to diminished by mouth intake Relative hypotension Diffuse ulcerations and multiple lesions, EGD, colonoscopy clinically, 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 Patient will also be following up with the [facility] as scheduled on 09/20/2019 for his radiation treatments. Patient will continue with prednisone starting at 40 mg daily for 1 week and titrating down by 10 mg each week in the outpatient setting. Total time taken is 35 minutes. History of present illness This is an 68-year-old male who was recently admitted with significant weakness with diminished oral intake and was being closely monitored. Patient was presenting like colitis. GI was following. Patient will continue with the prednisone slow taper starting at 40 mg daily for 1 week and titrating down by 10 mg each week. Patient already has an appointment with the [facility] as he has been receiving radiation treatments there previously. This appointment is scheduled for 09/20/2019. Patient was initiated on an antidepressant and a prescription was provided as patient will continue in the o utpatient setting. Patient is slightly anxious and nervous about his condition but states he has family for support. Patient will follow-up with the [facility] as well about possible weekly nursing visits in the home. Patient has poor oral intake although during hospitalization patient started eating slightly more and tolerating with no reports of nausea or vomiting. Patient states he has inter mittent nausea after taking medications. Instructed the patient to take medications with meals and patient was given a prescription for some Compazine in the outpatient setting. Currently no reports of chest pain, shortness of breath, or palpitations. Patient is afebrile. No reports of nausea or vomiting and patient is tolerating diet. Guarded prognosis. On exam vital signs are stable. Temp is 98.1 F, pulse is 80, respirations are 16, blood pressure is 96/60, oxygen saturation is 96 % on room air. Cardio S1, S2 are muffled. Respiratory shows diminished breath sounds at the bases with no wheezing or rhonchi noted. Abdomen is soft and nontender. Nervous system shows no focal deficits. Please refer to medication reconciliation sheet for a list of medications. Patient Condition at Discharge: Fair Plan - Discharge Summary New Discharge Prescriptions: New predniSONE 10 mg PO DAILY #62 tab Prochlorperazine [Compazine] 5 mg PO Q12HR PRN #20 tab PRN Reason: Nausea And Vomiting Fludrocortisone [Florinef] 0.2 mg PO DAILY 30 Days #60 tab Folic Acid 1 mg PO DAILY@1200 30 Days #30 tab Escitalopram [Lexapro] 10 mg PO HS 30 Days #30 tab Nystatin 100,000 Unit/ml Susp [Mycostatin Oral Susp] 500,000 unit PO QID #120 ml HYDROcodone/APAP 5-325MG [[place] 5-325] 1 each PO Q6HR PRN #12 tab PRN Reason: Pain Thiamine [Vitamin B-1] 100 mg PO DAILY@1200 30 Days #30 tab Continue Tamsulosin HCl [Flomax] 0.4 mg PO HS Pantoprazole Sodium [Protonix] 40 mg PO AC-BID Multivitamins, Thera [Multivitamin (formulary)] 1 tab PO DAILY Discharge Medication List Multivitamins, Thera [Multivitamin (formulary)] 1 tab PO DAILY 09/05/19 [History] Pantoprazole Sodium [Protonix] 40 mg PO AC-BID 09/05/19 [History] Tamsulosin HCl [Flomax] 0.4 mg PO HS 09/05/19 [History] Escitalopram [Lexapro] 10 mg PO HS 30 Days #30 tab 09/12/19 [Rx] Fludrocortisone [Florinef] 0.2 mg PO DAILY 30 Days #60 tab 09/12/19 [Rx] Folic Acid 1 mg PO DAILY@1200 30 Days #30 tab 09/12/19 [Rx] HYDROcodone/APAP 5-325MG [[place] 5-325] 1 each PO Q6HR PRN #12 tab 09/12/19 [Rx] Nystatin 100,000 Unit/ml Susp [Mycostatin Oral Susp] 500,000 unit PO QID #120 ml 09/12/19 [Rx] Prochlorperazine [Compazine] 5 mg PO Q12HR PRN #20 tab 09/12/19 [Rx] Thiamine [Vitamin B-1] 100 mg PO DAILY@1200 30 Days #30 tab 09/12/19 [Rx] predniSONE 10 mg PO DAILY #62 tab 09/12/19 [Rx] Follow up Appointment(s)/Referral(s): None,Stated [REFERRING] - 1-2 days [facility],Clinic [Primary Care Provider] - 1-2 Days Patient Instructions/Handouts: Renal Cancer (DC), Weakness (DC), Colitis (ED) Activity/Diet/Wound Care/Special Instructions: the [facility] has your info and is working on home care for you. They have set up [facility] and they can be reached at [phone]. please call the [facility] and set up an appt to see the social worker school so that she can help you obtain extra services. Activity Limited until follow-up Follow-up with the [facility] as scheduled on 09/20/2019 Continue current diet Follow-up with primary care provider upon discharge Discharge Disposition: HOME WITH HOME HEALTH SERVICES
--- NOTE | 2019-09-16 17:44 | CDI ---
Documentation Clarification Form Date: 09/16/19 From: Suha Salinas CCS Phone: If you have a question about this query, please contact Edith Hickey, Paleology Teacher at [phone] between 8am and 5pm. Admit Date: 09/07/19 Discharge Date:09/12/19 Patient Name: Martin Younger Visit Number: [id number] ATTENTION: The Clinical Documentation Specialists (CDI) and [facility] Coding Staff appreciate your assistance in clarifying documentation. Please respond to the clarification below the line at the bottom and electronically sign. The CDI & [facility] Coding staff will review the response and follow-up if needed. Please note: Queries are made part of the Legal Health Record. If you have any questions, please contact the author of this message via ITS. Dear Dr. Cain, A diagnosis of anemia lacks specificity to accurately reflect your patients severity of condition and clarification is needed. History/Risk Factors: Renal Cancer w/ mets, Severe PCM, Coagulation defect Clinical indicators: Normocytic anemia Hemoglobin: 11.1,10.5, 9.7 Hematocrit: 33.8, 31.3, 29.9 Treatment: Folic Acid 1 mg PO daily , monitoring labs In order to capture the severity of condition, please clarify the type of anemia and etiology if known: Iron deficiency anemia Drug induced anemia Anemia due to malignancy Nutritional anemia Anemia of chronic kidney disease Unable to determine Other, please specify Unable to determine MTDD
== END 2019-09-12 19:21 | disposition home health service (06) | DRG 391 ==
LOC: EC 14:00 → 5NMEDONC 17:27 → OBSVTOIN 09-07 14:02
PROVIDERS: ADMIT Internal Medicine; ATTEND Internal Medicine
DX: K52.89 Other specified noninfective gastroenteritis and colitis (principal); E43 Unspecified severe protein-calorie malnutrition; K63.3 Ulcer of intestine; D68.9 Coagulation defect, unspecified; E87.1 Hypo-osmolality and hyponatremia; Z68.1 Body mass index [BMI] 19.9 or less, adult; C78.00 Secondary malignant neoplasm of unspecified lung; C64.1 Malignant neoplasm of right kidney, except renal pelvis; D89.89 Other specified disorders involving the immune mechanism, not elsewhere classified; R62.7 Adult failure to thrive; I95.9 Hypotension, unspecified; G89.29 Other chronic pain; D63.0 Anemia in neoplastic disease; E86.0 Dehydration; F41.9 Anxiety disorder, unspecified; K29.70 Gastritis, unspecified, without bleeding; K44.9 Diaphragmatic hernia without obstruction or gangrene; F32.9 Major depressive disorder, single episode, unspecified; M19.90 Unspecified osteoarthritis, unspecified site; Z71.3 Dietary counseling and surveillance; Z79.899 Other long term (current) drug therapy; Z90.5 Acquired absence of kidney; Z90.2 Acquired absence of lung [part of]; Z98.890 Other specified postprocedural states; Z85.528 Personal history of other malignant neoplasm of kidney; Z90.49 Acquired absence of other specified parts of digestive tract; Z92.3 Personal history of irradiation; Z87.19 Personal history of other diseases of the digestive system
CPT/HCPCS: 36415; 71046; 80048; 80053; 81001; 82533; 83516; 83605; 83630; 83735; 84484; 85025; 85610; 85730; 86255; 87040; 87086; 87324; 87502; 93005; 99285

== ENCOUNTER 2019-09-19 17:39 | Inpatient (IN) | payer MEDICARE ==
[2019-09-19] MEDS ORDERED: SODIUM CHLORIDE 0.9% 1,000 ML IV STA ×2 (18:17)
[2019-09-19] MEDS ORDERED: ONDANSETRON 4 MG/2 ML VIAL IVP STA (18:17)
--- NOTE | 2019-09-19 18:19 | ED ---
Weakness HPI - General Chief complaint: Weakness Stated complaint: Weakness, diarrhea Time Seen by Provider: 09/19/19 17:50 Source: EMS, RN notes reviewed, old records reviewed Mode of arrival: EMS Limitations: physical limitation - History of Present Illness Initial comments: This is a 68-year-old male the ER he presents today for evaluation of weakness and diarrhea. Patient's positive for stay and treatment. Patient himself denying any fevers currently. No blood in the diarrhea no nausea and vomiting. No current abdominal pain. Patient does have recent hospital admission for same patient states he felt mildly better when he was discharged but his symptoms have persisted and he does not feel well now. MD Complaint: generalized weakness (With nausea weakness decreased appetite and diarrhea) -: week(s) Location: generalized Severity: moderate Severity scale (1-10): 7 Consistency: constant Improves with: none Worsens with: none Context: recent illness, history of similar Associated Symptoms: loss of appetite, nausea/vomiting - Related Data Home Medications Medication Instructions Recorded Confirmed Multivitamins, Thera [Multivitamin 1 tab PO DAILY 09/05/19 09/05/19 (formulary)] Pantoprazole Sodium [Protonix] 40 mg PO AC-BID 09/05/19 09/05/19 Tamsulosin HCl [Flomax] 0.4 mg PO HS 09/05/19 09/05/19 Previous Rx's Medication Instructions Recorded Escitalopram [Lexapro] 10 mg PO HS 30 Days #30 tab 09/12/19 Fludrocortisone [Florinef] 0.2 mg PO DAILY 30 Days #60 tab 09/12/19 Folic Acid 1 mg PO DAILY@1200 30 Days #30 tab 09/12/19 HYDROcodone/APAP 5-325MG [[place] 1 each PO Q6HR PRN #12 tab 09/12/19 5-325] Nystatin 100,000 Unit/ml Susp 500,000 unit PO QID #120 ml 09/12/19 [Mycostatin Oral Susp] Prochlorperazine [Compazine] 5 mg PO Q12HR PRN #20 tab 09/12/19 Thiamine [Vitamin B-1] 100 mg PO DAILY@1200 30 Days #30 09/12/19 tab predniSONE 10 mg PO DAILY #62 tab 09/12/19 Allergies Allergy/AdvReac Type Severity Reaction Status Date / Time No Known Allergies Allergy Verified 09/05/19 20:48 Review of Systems ROS Statement: Those systems with pertinent positive or pertinent negative responses have been documented in the HPI. ROS Other: All systems not noted in ROS Statement are negative. Past Medical History Past Medical History: Cancer, Renal Disease Additional Past Medical History / Comment(s): right renal CA, lung ca History of Any Multi-Drug Resistant Organisms: None Reported Past Surgical History: Appendectomy, Cholecystectomy, Orthopedic Surgery Additional Past Surgical History / Comment(s): right kidney, Bilateral shoulder Past Psychological History: No Psychological Hx Reported Smoking Status: Never smoker Past Alcohol Use History: None Reported Past Drug Use History: None Reported - Past Family History Father Family Medical History: No Reported History General Exam Limitations: physical limitation General appearance: alert, in no apparent distress Head exam: Present: atraumatic, normocephalic, normal inspection Eye exam: Present: normal appearance, PERRL, EOMI. Absent: scleral icterus, conjunctival injection, periorbital swelling ENT exam: Present: normal exam, mucous membranes moist Neck exam: Present: normal inspection. Absent: tenderness, meningismus, lymphadenopathy Respiratory exam: Present: normal lung sounds bilaterally. Absent: respiratory distress, wheezes, rales, rhonchi, stridor Cardiovascular Exam: Present: regular rate, normal rhythm, normal heart sounds. Absent: systolic murmur, diastolic murmur, rubs, gallop, clicks GI/Abdominal exam: Present: soft, normal bowel sounds. Absent: distended, tenderness, guarding, rebound, rigid Extremities exam: Present: normal inspection, full ROM, normal capillary refill. Absent: tenderness, pedal edema, joint swelling, calf tenderness Back exam: Present: normal inspection Neurological exam: Present: alert, oriented X3, CN II-XII intact Psychiatric exam: Present: normal affect, normal mood Skin exam: Present: warm, dry, intact, normal color. Absent: rash Course Vital Signs 09/19/19 17:40 Temperature 98.5 F Pulse Rate 80 Respiratory 19 Rate Blood Pressure 116/81 O2 Sat by Pulse 97 Oximetry - Reevaluation(s) Reevaluation #1: 09/19/19 18:48 Medical record prior inpatient evaluation is reviewed Reevaluation #2: 09/19/19 20:01 Patient with no improvement in symptoms here in the ER continuing failure to thrive, informed of results - Consultations Consultation #1: Spoke with [facility] and ok for admission EKG Findings - EKG Comments: EKG Findings:: EKG shows sinus bradycardia DE 118 QRS of 88 QTc of 431 Medical Decision Making - Medical Decision Making 68 male DF for evaluation of weakness continued failure to thrive diarrhea no appetite and dehydration, significant metabolic alkalosis secondary to dehydration and diarrhea. Will admit for resuscitation - Lab Data Result diagrams: 09/19/19 18:30 09/19/19 18:30 Lab Results 09/19/19 09/19/19 09/19/19 Range/Units 18:30 18:30 18:30 WBC 2.8 L (3.8-10.6) k/uL RBC 4.17 L (4.30-5.90) m/uL Hgb 12.2 L (13.0-17.5) gm/dL Hct 37.7 L (39.0-53.0) % MCV 90.4 (80.0-100.0) fL MCH 29.3 (25.0-35.0) pg MCHC 32.4 (31.0-37.0) g/dL RDW 13.5 (11.5-15.5) % Plt Count 279 (150-450) k/uL Neutrophils % 76 % Lymphocytes % 14 % Monocytes % 5 % Eosinophils % 1 % Basophils % 0 % Neutrophils # 2.2 (1.3-7.7) k/uL Lymphocytes # 0.4 L (1.0-4.8) k/uL Monocytes # 0.1 (0-1.0) k/uL Eosinophils # 0.0 (0-0.7) k/uL Basophils # 0.0 (0-0.2) k/uL PT 11.2 (9.0-12.0) sec INR 1.1 (<1.2) APTT 24.0 (22.0-30.0) sec Sodium 138 (137-145) mmol/L Potassium 3.5 (3.5-5.1) mmol/L Chloride 94 L (98-107) mmol/L Carbon Dioxide 37 H (22-30) mmol/L Anion Gap 7 mmol/L BUN 19 (9-20) mg/dL Creatinine 0.63 L (0.66-1.25) mg/dL Est GFR (CKD-EPI)AfAm >90 (>60 ml/min/1.73 sqM) Est GFR (CKD-EPI)NonAf >90 (>60 ml/min/1.73 sqM) Glucose 112 H (74-99) mg/dL Plasma Lactic Acid Yohannes (0.7-2.0) mmol/L Calcium 8.5 (8.4-10.2) mg/dL Phosphorus 3.2 (2.5-4.5) mg/dL Magnesium 2.2 (1.6-2.3) mg/dL Total Bilirubin 1.3 (0.2-1.3) mg/dL AST 17 (17-59) U/L ALT 15 (4-49) U/L Alkaline Phosphatase 46 (38-126) U/L Creatine Kinase <20 L (55-170) U/L Troponin I (0.000-0.034) ng/mL Total Protein 5.5 L (6.3-8.2) g/dL Albumin 2.8 L (3.5-5.0) g/dL 09/19/19 09/19/19 Range/Units 18:30 18:30 WBC (3.8-10.6) k/uL RBC (4.30-5.90) m/uL Hgb (13.0-17.5) gm/dL Hct (39.0-53.0) % MCV (80.0-100.0) fL MCH (25.0-35.0) pg MCHC (31.0-37.0) g/dL RDW (11.5-15.5) % Plt Count (150-450) k/uL Neutrophils % % Lymphocytes % % Monocytes % % Eosinophils % % Basophils % % Neutrophils # (1.3-7.7) k/uL Lymphocytes # (1.0-4.8) k/uL Monocytes # (0-1.0) k/uL Eosinophils # (0-0.7) k/uL Basophils # (0-0.2) k/uL PT (9.0-12.0) sec INR (<1.2) APTT (22.0-30.0) sec Sodium (137-145) mmol/L Potassium (3.5-5.1) mmol/L Chloride (98-107) mmol/L Carbon Dioxide (22-30) mmol/L Anion Gap mmol/L BUN (9-20) mg/dL Creatinine (0.66-1.25) mg/dL Est GFR (CKD-EPI)AfAm (>60 ml/min/1.73 sqM) Est GFR (CKD-EPI)NonAf (>60 ml/min/1.73 sqM) Glucose (74-99) mg/dL Plasma Lactic Acid Yohannes 1.4 (0.7-2.0) mmol/L Calcium (8.4-10.2) mg/dL Phosphorus (2.5-4.5) mg/dL Magnesium (1.6-2.3) mg/dL Total Bilirubin (0.2-1.3) mg/dL AST (17-59) U/L ALT (4-49) U/L Alkaline Phosphatase (38-126) U/L Creatine Kinase (55-170) U/L Troponin I <0.012 (0.000-0.034) ng/mL Total Protein (6.3-8.2) g/dL Albumin (3.5-5.0) g/dL - Radiology Data Radiology results: report reviewed (Chest x-ray is negative for acute disease), image reviewed Disposition Clinical Impression: Colitis, Diarrhea, Weakness, Dehydration, Failure to thrive in adult, Metabolic alkalosis, Malnutrition Disposition: ADMITTED IP TO THIS HOSP Condition: Fair Is patient prescribed a controlled substance at d/c from ED?: No Referrals: [facility],Clinic [Primary Care Provider] - 1-2 days
[2019-09-19 18:46] LABS: Basophils % (A) 0 %; Eosinophils % (A) 1 %; HCT 37.7 % (39.0-53.0); HGB 12.2 gm/dL (13.0-17.5); Lymphocytes # (A) 0.4 k/uL (1.0-4.8); Lymphocytes % (A) 14 %; MCH 29.3 pg (25.0-35.0); MCHC 32.4 g/dL (31.0-37.0); MCV 90.4 fL (80.0-100.0); Mean Platelet Volume 7.2; Monocytes # (A) 0.1 k/uL (0-1.0); Monocytes % (A) 5 %; Neutrophils # (A) 2.2 k/uL (1.3-7.7); Neutrophils % (A) 76 %; Platelet Count 279 k/uL (150-450); RBC 4.17 m/uL (4.30-5.90); RDW 13.5 % (11.5-15.5); WBC 2.8 k/uL (3.8-10.6)
[2019-09-19 18:55] LABS: ALT 15 U/L (4-49); AST 17 U/L (17-59); African American GFR (CKD) >90 (>60 ml/min/1.73 sqM); Albumin 2.8 g/dL (3.5-5.0); Alkaline Phosphatase 46 U/L (38-126); Anion Gap 7 mmol/L; Blood Urea Nitrogen 19 mg/dL (9-20); Calcium 8.5 mg/dL (8.4-10.2); Carbon Dioxide 37 mmol/L (22-30); Chloride 94 mmol/L (98-107); Creatine Kinase <20 U/L (55-170); Glucose 112 mg/dL (74-99); Magnesium 2.2 mg/dL (1.6-2.3); Non-African American GFR(CKD) >90 (>60 ml/min/1.73 sqM); Phosphorus 3.2 mg/dL (2.5-4.5); Potassium 3.5 mmol/L (3.5-5.1); Sodium 138 mmol/L (137-145); Total Bilirubin 1.3 mg/dL (0.2-1.3); Total Protein 5.5 g/dL (6.3-8.2)
[2019-09-19 19:13] LABS: INR 1.1 (<1.2); Prothrombin Time 11.2 sec (9.0-12.0)
--- NOTE | 2019-09-19 19:20 | XR ---
EXAMINATION TYPE: XR chest 2V DATE OF EXAM: 09/19/2019 COMPARISON: 09/07/2019 HISTORY: Weakness TECHNIQUE: FINDINGS: Heart and mediastinum are normal. Lungs are clear. There is minimal pleural reaction left p osterior lung base.. There are chest leads. Costophrenic angles are clear. Bony thorax appears intact . IMPRESSION: Minimal left-sided pleural reaction is the same or improved compared to last exam. Normal heart.
[2019-09-19] MEDS ORDERED: SODIUM CHLORIDE 0.9% 2,000 ML IV STA (20:03)
[2019-09-19] MEDS ORDERED: DEXTROSE 5%-0.45% NACL 1,000 ML IV ONE (20:03)
[2019-09-19] MEDS ORDERED: PANTOPRAZOLE 40 MG/10 ML VIAL IVP STA (20:03)
[2019-09-19] MEDS: PANTOPRAZOLE 40 MG/10 ML VIAL IVP SCH (20:20)
[2019-09-19 20:41] LABS: Amorphous Sediment,Urine Moderate /hpf; Appearance,Urine Turbid (Clear); Bilirubin,Urine Negative (Negative); Blood,Urine Negative (Negative); Color,Urine Yellow; Glucose,Urine (UA) Negative (Negative); Ketones,Urine Negative (Negative); Leukocyte Esterase,Urine Negative (Negative); Mucus,Urine Rare /hpf; Nitrite,Urine Negative (Negative); Protein,Urine Trace (Negative); Specific Gravity,Urine 1.013 (1.001-1.035); WBC,Urine 1 /hpf (0-5)
[2019-09-19] MEDS ORDERED: ACETAMINOPHEN TAB 325 MG TAB PO SCH (22:15)
[2019-09-20] MEDS: PANTOPRAZOLE 40 MG/10 ML VIAL IVP SCH (07:47)
[2019-09-20] MEDS ORDERED: PROCHLORPERAZINE 5 MG TAB PO PRN (07:58)
--- NOTE | 2019-09-20 07:59 | P.HPIM ---
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 and RCC with metastases, anemia, hyponatremia, multiple apparently, hypoalbuminemia, severe protein calorie malnutrition Patient states that he has history of right renal cell carcinoma in 1996, next year they found metastases to the lung, at that time he was treated with chemotherapy and radiotherapy, he was getting regular checkup last May when found to have recurrence of his right renal cancer on the same spot found on CAT scan of the abdomen so he got 5 days of radiotherapy on May, after radiotherapy patient was started getting sick with abdominal Pain However the Diarrhea Did Not Start until July 2019, This Is the Fourth Time His Been Admitted to the Hospital with the Same Diagnosis of Abdominal Pain of Diarrhea, One at [place], One I [place] and 1 at [facility] and This Is the Second Time. Patient currently complaining of from lower abdominal pain, mild to moderate, is appreciated with loose bowel movement about 6 times per day, brown with no blood, has some nausea with decreased appetite but no vomiting. No other com plaints no chest pain or dyspnea or fever or coughing. Patient states he had colonoscopy/EGD and [place] [facility] about 3 weeks ago Vitals his stable and patient is afebrile. Left shoulder C of 2.8K, hemoglobin 12.2, platelets 279, INR 1.1, platelet colitis of sodium presets jump and creatinine are within normal limits, mildly elevated carbon dioxide at 37. Urinalysis is not suspicious of infection, C. diff is negative. EKG showing normal sinus rhythm at 80 with QTC of 431, no significant ST T changes, Chest x- ray: No acute process, minimal left-sided pleural reaction is the same or improv ed compared to last exam. On admission was started on D5 half-normal saline, Zofran, Protonix and normal saline fluids. Review of Systems CONSTITUTIONAL: No fever, no malaise, no fatigue. HEENT: No recent visual problems or hearing problems. Denied any sore throat. CARDIOVASCULAR: No orthopnea, PND, no palpitations, no syncope. PULMONARY: No shortness of breath, no cough, no hemoptysis. GASTROINTESTINAL: No diarrhea, no nausea, no vomiting, no abdominal pain. Normoactive bowel sounds. NEUROLOGICAL: No headaches, no weakness, no numbness. HEMATOLOGICAL: Denies any bleeding or petechiae. GENITOURINARY: Denies any burning micturition, frequency, or urgency. MUSCULOSKELETAL/RHEUMATOLOGICAL: Denies any joint pain, swelling, or any muscle pain. ENDOCRINE: Denies any polyuria or polydipsia. Past Medical History Past Medical History: Cancer, Renal Disease Additional Past Medical History / Comment(s): Right renal CA(Radiation at [facility]... last dose in May of 2019), Lung ca History of Any Multi-Drug Resistant Organisms: None Reported Past Surgical History: Appendectomy, Orthopedic Surgery Additional Past Surgical History / Comment(s): right kidney: partial kidney removed, Bilateral shoulder, section of lung removed (December of 2018) Past Psychological History: No Psychological Hx Reported Smoking Status: Never smoker Past Alcohol Use History: None Reported Past Drug Use History: None Reported - Past Family History Father Family Medical History: No Reported History Medications and Allergies Home Medications Medication Instructions Recorded Confirmed Type Pantoprazole Sodium [Protonix] 40 mg PO AC-BID 09/05/19 09/19/19 History Tamsulosin HCl [Flomax] 0.4 mg PO HS 09/05/19 09/19/19 History Escitalopram [Lexapro] 10 mg PO HS 30 Days #30 tab 09/12/19 09/19/19 Rx Folic Acid 1 mg PO DAILY@1200 30 Days #30 tab 09/12/19 09/19/19 Rx Nystatin 100,000 Unit/ml Susp 500,000 unit PO QID #120 ml 09/12/19 09/19/19 Rx [Mycostatin Oral Susp] Prochlorperazine [Compazine] 5 mg PO Q12HR PRN #20 tab 09/12/19 09/19/19 Rx Thiamine [Vitamin B-1] 100 mg PO DAILY@1200 30 Days #30 09/12/19 09/19/19 Rx tab Acetaminophen Tab [Tylenol] 325 mg PO Q4H 09/19/19 09/19/19 History Fludrocortisone [Florinef] 0.2 mg PO DAILY@1200 09/19/19 09/19/19 History predniSONE See Taper PO DAILY 09/19/19 09/19/19 History Allergies Allergy/AdvReac Type Severity Reaction Status Date / Time No Known Allergies Allergy Verified 09/19/19 20:33 Physical Exam Vitals: Vital Signs Temp Pulse Pulse Resp BP BP Pulse Ox 09/20/19 05:00 98.1 F 89 16 106/68 96 09/19/19 21:41 98.5 F 80 16 123/71 97 09/19/19 20:36 98.0 F 84 18 124/83 98 09/19/19 17:40 98.5 F 80 19 116/81 97 Intake and Output 09/19/19 09/20/19 09/20/19 22:59 06:59 14:59 Intake Total 2300 964 Balance 2300 964 Intake: Intake, IV Titration 2000 664 Amount Dextrose 5%-0.45% NaCl 1, 664 000 ml @ 83 mls/hr IV . Q12H3M ONE Rx#:[id number] Sodium Chloride 0.9% 2, 2000 000 ml @ 999 mls/hr IV . Q2H1M STA Rx#:[id number] Oral 300 300 Other: Voiding Method Toilet # Voids 2 2 # Bowel Movements 2 1 Weight 53.5 kg GENERAL: The patient is alert and oriented x3, not in any acute distress. Well developed, well nourished. HEENT: Pupils are round and equally reacting to light. EOMI. No scleral icterus. No conjunctival pallor. Normocephalic, atraumatic. No pharyngeal erythema. No thyromegaly. CARDIOVASCULAR: S1 and S2 present. No murmurs, rubs, or gallops. PULMONARY: Chest is clear to auscultation, no wheezing or crackles. -ABDOMEN: Soft, lower abdominal tenderness with no rebound tenderness, nondistended, normoactive bowel sounds. No palpable organomegaly. MUSCULOSKELETAL: No joint swelling or deformity. EXTREMITIES: No cyanosis, clubbing, or pedal edema. NEUROLOGICAL: Gross neurological examination did not reveal any focal deficits. SKIN: No rashes. No petechiae Results CBC & Chem 7: 09/19/19 18:30 09/19/19 18:30 Labs: Abnormal Lab Results - Last 24 Hours (Table) 09/19/19 09/19/19 09/19/19 Range/Units 18:30 18:30 20:18 WBC 2.8 L (3.8-10.6) k/uL RBC 4.17 L (4.30-5.90) m/uL Hgb 12.2 L (13.0-17.5) gm/dL Hct 37.7 L (39.0-53.0) % Lymphocytes # 0.4 L (1.0-4.8) k/uL Chloride 94 L (98-107) mmol/L Carbon Dioxide 37 H (22-30) mmol/L Creatinine 0.63 L (0.66-1.25) mg/dL Glucose 112 H (74-99) mg/dL Creatine Kinase <20 L (55-170) U/L Total Protein 5.5 L (6.3-8.2) g/dL Albumin 2.8 L (3.5-5.0) g/dL Urine Protein Trace H (Negative) Amorphous Sediment Moderate H (None) /hpf Urine Mucus Rare H (None) /hpf Thrombosis Risk Factor Assmnt - Choose All That Apply Each Risk Factor Represents 2 Points: Age 61-74 years Other congenital or acquired thrombophilia - If yes, enter type in comment: No Thrombosis Risk Factor Assessment Total Risk Factor Score: 2 Thrombosis Risk Factor Assessment Level: Low Risk Assessment and Plan Assessment: Acute recurrent or persistent Gastro antritis, related to radiation, versus autoimmune, rule out infectious Generalized weakness and tiredness Relative hypotension Diffuse ulcerations and multiple lesions, EGD, colonoscopy clinically, 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 Consult cardiology and hematology/oncology. Also we will check stool studies with culture and WBC. Check CT of the abdomen and pelvis without IV contrast and with oral contrast Labs and medication were reviewed.. Continue same treatment. Continue with symptomatic treatment. Resume home medication. Monitor lytes and vitals. DVT and GI prophylaxis. Further recommendations of the clinical course of the patient DVT prophylaxis: Subcutaneous heparin GI Prophylaxis: Ppi PT/OT: Pending Prognosis is guarded
[2019-09-20] MEDS: ACETAMINOPHEN TAB 325 MG TAB PO PRN ×4 (08:00→23:37)
[2019-09-20 08:11] LABS: Basophils % (A) 0 %; Eosinophils # (A) 0.1 k/uL (0-0.7); Eosinophils % (A) 5 %; HCT 29.7 % (39.0-53.0); Lymphocytes # (A) 0.4 k/uL (1.0-4.8); Lymphocytes % (A) 14 %; MCH 28.8 pg (25.0-35.0); MCHC 31.6 g/dL (31.0-37.0); MCV 91.1 fL (80.0-100.0); Mean Platelet Volume 7.1; Monocytes # (A) 0.1 k/uL (0-1.0); Monocytes % (A) 5 %; Neutrophils # (A) 1.9 k/uL (1.3-7.7); Neutrophils % (A) 73 %; Platelet Count 225 k/uL (150-450); RBC 3.26 m/uL (4.30-5.90); RDW 13.9 % (11.5-15.5); WBC 2.6 k/uL (3.8-10.6)
[2019-09-20 08:22] LABS: HGB 9.4 gm/dL (13.0-17.5)
[2019-09-20 08:28] LABS: African American GFR (CKD) >90 (>60 ml/min/1.73 sqM); Anion Gap 4 mmol/L; Blood Urea Nitrogen 15 mg/dL (9-20); Calcium 7.6 mg/dL (8.4-10.2); Carbon Dioxide 30 mmol/L (22-30); Chloride 100 mmol/L (98-107); Glucose 110 mg/dL (74-99); Non-African American GFR(CKD) >90 (>60 ml/min/1.73 sqM); Potassium 2.8 mmol/L (3.5-5.1); Sodium 134 mmol/L (137-145)
[2019-09-20] MEDS: IOPAMIDOL CONTRAST (ORAL USE) VIAL PO PRN ×2 (10:14→11:00)
[2019-09-20] MEDS: NYSTATIN 100,000 UNIT/ML SUSP 500,000 UNIT/5 ML CUP PO SCH ×4 (10:19→23:04)
[2019-09-20] MEDS: HEPARIN SODIUM,PORCINE 5,000 UNIT/ML 1 ML VIAL SQ SCH ×2 (10:19→20:01)
[2019-09-20] MEDS: DEXTROSE 5%-0.9% NACL 1,000 ML IV SCH (10:22)
[2019-09-20] MEDS: methylPREDNISolone SOD SUCCI 40 MG/ML 1 ML VIAL IV SCH ×3 (11:00→23:04)
[2019-09-20 11:09] VITALS: BMI 17.9
--- NOTE | 2019-09-20 12:21 | CT ---
EXAMINATION TYPE: CT abdomen pelvis wo con DATE OF EXAM: 09/20/2019 COMPARISON: 07/06/2017 HISTORY: Pelvic pain with diarrhea CT DLP: 237.8 mGycm Automated exposure control for dose reduction was used. TECHNIQUE: Helical acquisition of images was performed from the lung bases through the pelvis. FINDINGS: Evaluation of the abdominal viscera is limited without intravenous contrast administration. LUNG BASES: Linear pleural parenchymal scarring at the left lung base. Descending thoracic aorta is u pper limits normal size. Trace left pleural effusion is seen. LIVER/GB: The previously seen 6 mm hypoattenuated hepatic lesion in segment 8 of the liver is less co nspicuous without contrast however appears relatively stable. Remainder of the unenhanced liver is un remarkable. No radiopaque cholelithiasis. PANCREAS: No ductal dilatation. SPLEEN: There is a calcified splenic granuloma. No splenomegaly. ADRENALS: No suspicious nodule. KIDNEYS: Again there are postsurgical changes of the right lower pole of the kidney with high density material from prior partial nephrectomy. The previously seen right midpole lesion is suboptimally ev aluated without contrast. Mild right inferior pole perinephric fat stranding is redemonstrated and no nspecific. Small amount of probable fluid is seen posterior to the inferior pole the right kidney on series 3 image 40 that would be better evaluated with contrast. No gross hydronephrosis of either kid lilliam. Punctate 3 mm nonobstructing left mid pole renal calculus on image 33. Punctatea 1 a 2 mm nonobs tructing right renal calculus on image 33. FREE AIR: No free air is visualized ADENOPATHY: Suboptimally evaluated given lack of intravenous contrast and the presence of mesenteric edema. OSSEOUS STRUCTURES: Again there is mild vertebral body height loss of L1 of approximately 10%. Nonsp ecific peripherally sclerotic right iliac bone lesion a similar to the prior BOWEL: There is diffuse thickening of the colon throughout. Evaluation for pericolonic fat stranding is nondiagnostic given the diffuse mesenteric edema and ascites. Appendix appears within normal limi ts containing air measuring 6 mm. OTHER: New diffuse mesenteric edema is seen with an infiltrating appearance. Trace amount of free flu id is seen along the right lateral conal fascia in the pelvis. Mild anasarca is also seen. The prosta te gland is enlarged and heterogenous containing central zone calcifications at measuring 5.5 cm in t ransverse dimension. IMPRESSION: 1. Pancolitis, most commonly of infectious or inflammatory etiology. Given the diffuse involvement cl ostridium difficile should be considered. No evidence of bowel obstruction. 2. New diffuse mesenteric edema, trace ascites, and anasarca. 3. Postsurgical change of the right inferior pole partial nephrectomy. New subcentimeter density is s een posterior and slightly inferior to the site of surgical resection, possibly a small amount of flu id however this could be further evaluated with contrast-enhanced CT to ensure no abnormal enhancemen t. 4. Heterogeneity of the prostate gland remains however the previously seen abnormal areas of hyperemi a/enhancement are not evaluated without contrast. 5. Chronic compression deformity of L1.
[2019-09-20] MEDS ORDERED: Potassium Replacement Protocol 1 EACH MISC MISCELLANE PRN ×3 (12:39→19:33)
[2019-09-20] MEDS ORDERED: CHERRY FLAVOR 60 ML BOTTLE PO PRN (12:40)
[2019-09-20] MEDS ORDERED: VANCOMYCIN ORAL SOLUTION 250 MG/5 ML BOTTLE PO SCH (12:45)
[2019-09-20] MEDS: THIAMINE 100 MG TAB PO SCH (13:40)
[2019-09-20] MEDS: FOLIC ACID 1 MG TAB PO SCH (13:41)
[2019-09-20] MEDS: POTASSIUM CHLORIDE ER 20 MEQ TAB.ER PO SCH ×5 (13:41→21:03)
[2019-09-20 16:33] LABS: Folate, Serum 11.6 ng/mL
[2019-09-20] MEDS: FLUDROCORTISONE 0.1 MG TAB PO SCH (16:53)
[2019-09-20] MEDS: RIFAXIMIN 550 MG TABLET PO SCH ×2 (16:53→23:04)
[2019-09-20 17:45] LABS: Hemoglobin A1C 5.2 % (4.0-6.0)
[2019-09-20] MEDS: TAMSULOSIN 0.4 MG CAP.ER.24H PO SCH (20:00)
[2019-09-20] MEDS: ESCITALOPRAM 10 MG TAB PO SCH (20:00)
--- NOTE | 2019-09-20 20:40 | P.CONS ---
History of Present Illness - Reason for Consult Consult date: 09/20/19 Diarrhea, abdominal pain, colitis Requesting physician: Isaak E Sheet - Chief Complaint Diarrhea, abdominal pain, dehydration - History of Present Illness 68-year-old male with medical history significant for right sided renal cell cancer diagnosed in the status post nephrectomy the patient had recurrence of his disease in 2019 requiring resection of part of his long in 01/2019 and subsequent recurrence in the renal bed for which he underwent radiation treatment, who presents to the hospital with complaints of decreased oral intake, abdominal pain, weakness and diarrhea after recent discharge from the hospital with similar complaints. The patient reports that since May 2019 he has been dealing with symptoms of abdominal pain, bloating and distention. He underwent EGD and colonoscopy for evaluation at [facility] in August 2019 with findings of a hiatal hernia, Schatzki's ring and gastritis on EGD as well as findings of large ulcerated areas throughout the colon and into the terminal ileum with the largest measuring over 48 mm in size. Biopsies were taken and pathology has been provided by the patient's through his patient portal which does show chronic inflammatory changes, however pathologist no states that infectious, medication effect or other etiology cannot be excluded in the differential with inflammatory process. On last hospitalization the patient had multiple complaints of abdominal pain, bloating, distention and diar manan and was treated with IV steroid therapy with improvement of his symptoms. However he does report recurrence of symptoms after discharge. Review of Systems REVIEW OF SYSTEMS: CONSTITUTIONAL: Denies any fevers, chills, but does report fatigue and generalized weakness. CARDIOVASCULAR: Denies any chest pain, palpitations high or low blood pressures RESPIRATORY: Denies any shortness of breath, hemoptysis or cough. GENITOURINARY: No dysuria or hematuria. MUSCULOSKELETAL: No focal weakness reported. SKIN: Denies any new rashes or lesions, jaundice or pallor. PSYCHIATRIC: Denies any depression or anxiety. NEUROLOGY: Denies headache, denies any new focal deficits. EARS/NOSE/THROAT: No recent hearing change, congestion, nasal discharge or sore throat. EYES: No pain in eyes, discharge or change in vision. GASTROINTESTINAL: As per HPI. Past Medical History Past Medical History: Cancer, Renal Disease Additional Past Medical History / Comment(s): Right renal CA(Radiation at [facility]... last dose in May of 2019), Lung ca History of Any Multi-Drug Resistant Organisms: None Reported Past Surgical History: Appendectomy, Orthopedic Surgery Additional Past Surgical History / Comment(s): right kidney: partial kidney removed, Bilateral shoulder, section of lung removed (December of 2018) Past Psychological History: No Psychological Hx Reported Smoking Status: Never smoker Past Alcohol Use History: None Reported Past Drug Use History: None Reported - Past Family History Father Family Medical History: No Reported History Medications and Allergies Home Medications Medication Instructions Recorded Confirmed Type Pantoprazole Sodium [Protonix] 40 mg PO AC-BID 09/05/19 09/19/19 History Tamsulosin HCl [Flomax] 0.4 mg PO HS 09/05/19 09/19/19 History Escitalopram [Lexapro] 10 mg PO HS 30 Days #30 tab 09/12/19 09/19/19 Rx Folic Acid 1 mg PO DAILY@1200 30 Days #30 tab 09/12/19 09/19/19 Rx Nystatin 100,000 Unit/ml Susp 500,000 unit PO QID #120 ml 09/12/19 09/19/19 Rx [Mycostatin Oral Susp] Prochlorperazine [Compazine] 5 mg PO Q12HR PRN #20 tab 09/12/19 09/19/19 Rx Thiamine [Vitamin B-1] 100 mg PO DAILY@1200 30 Days #30 09/12/19 09/19/19 Rx tab Acetaminophen Tab [Tylenol] 325 mg PO Q4H 09/19/19 09/19/19 History Fludrocortisone [Florinef] 0.2 mg PO DAILY@1200 09/19/19 09/19/19 History predniSONE See Taper PO DAILY 09/19/19 09/19/19 History Allergies Allergy/AdvReac Type Severity Reaction Status Date / Time No Known Allergies Allergy Verified 09/19/19 20:33 Physical Exam Vitals: Vital Signs Temp Pulse Pulse Resp BP BP Pulse Ox 09/20/19 20:26 97.9 F 74 16 103/64 96 09/20/19 16:00 97.4 F L 75 16 120/76 97 09/20/19 05:00 98.1 F 89 16 106/68 96 09/19/19 21:41 98.5 F 80 16 123/71 97 09/19/19 20:36 98.0 F 84 18 124/83 98 Intake and Output 09/20/19 09/20/19 09/20/19 06:59 14:59 22:59 Intake Total 964 450 Balance 964 450 Intake: Intake, IV Titration 664 Amount Dextrose 5%-0.45% NaCl 1, 664 000 ml @ 83 mls/hr IV . Q12H3M ONE Rx#:[id number] Oral 300 450 Other: Voiding Method Toilet Toilet # Voids 2 3 # Bowel Movements 1 1 6 Weight 53.5 kg On physical examination, patient appears comfortable in no apparent distress. HEAD: Normocephalic, atraumatic. EYES: No scleral icterus. No conjunctival injection. MOUTH: No lesions, tongue midline. NECK: Trachea midline, no gross abnormalities. CHEST: Clear to auscultation with no wheezing or rhonchi appreciated. HEART: Regular rate and rhythm. ABDOMEN: Soft, thin and mildly tender. Bowel sounds are positive. No organomegaly. No guarding or rigidity. EXTREMITIES: No pedal edema. SKIN: No rashes, no jaundice. NEUROLOGIC: Alert and oriented x3. No focal deficits. Results CBC & Chem 7: 09/20/19 07:03 09/20/19 18:48 Labs: Abnormal Lab Results - Last 24 Hours (Table) 09/19/19 09/20/19 09/20/19 Range/Units 20:18 07:03 07:03 WBC 2.6 L (3.8-10.6) k/uL RBC 3.26 L (4.30-5.90) m/uL Hgb 9.4 L D (13.0-17.5) gm/dL Hct 29.7 L (39.0-53.0) % Lymphocytes # 0.4 L (1.0-4.8) k/uL Sodium 134 L (137-145) mmol/L Potassium 2.8 L (3.5-5.1) mmol/L Creatinine 0.54 L (0.66-1.25) mg/dL Glucose 110 H (74-99) mg/dL Calcium 7.6 L (8.4-10.2) mg/dL Vitamin B12 1278.0 H (200.0-944.0) pg/mL Urine Protein Trace H (Negative) Amorphous Sediment Moderate H (None) /hpf Urine Mucus Rare H (None) /hpf Stool Lactoferrin (NEGATIVE) 09/20/19 09/20/19 Range/Units 10:19 18:48 WBC (3.8-10.6) k/uL RBC (4.30-5.90) m/uL Hgb (13.0-17.5) gm/dL Hct (39.0-53.0) % Lymphocytes # (1.0-4.8) k/uL Sodium (137-145) mmol/L Potassium 3.3 L (3.5-5.1) mmol/L Creatinine (0.66-1.25) mg/dL Glucose (74-99) mg/dL Calcium (8.4-10.2) mg/dL Vitamin B12 (200.0-944.0) pg/mL Urine Protein (Negative) Amorphous Sediment (None) /hpf Urine Mucus (None) /hpf Stool Lactoferrin POSITIVE H (NEGATIVE) Microbiology - Last 24 Hours (Table) 09/20/19 10:19 Stool Culture - Preliminary Stool CT scan - abdomen: report reviewed (Findings of pancolitis on CT of the abdomen with other findings also noted.) Assessment and Plan (1) Colitis Narrative/Plan: 68-year-old male with a history of renal cell cancer treated with nephrectomy in the with recurrence in 2019 requiring radiation therapy of the right renal bed was subsequently developed symptoms of gas, bloating, distention, ab dominal pain, and loose stools after recent admission for similar complaints. Patient currently reporting improvement in symptoms on steroid therapy. He underwent EGD and colonoscopy for evaluation at the clinic in August 2019 with findings of gastritis, nonobstructing Schatzki's ring and hiatal hernia with numerous ulcerations noted throughout the colon and in the terminal ileum. Chronic active inflammation seen on pathology from biopsies of the colon with note from pathologist stating that in addition to inflammatory process medication effect, infection or other etiology cannot be ruled out. Given the correlation of the patient's symptoms with radiation therapy suspect inflammatory changes secondary to radiation. Testing for Clostridium difficile negative and lactoferrin positive. Computed tomography scan again read demonstrates pancolitis. Current Visit: Yes Status: Acute Code(s): K52.9 - NONINFECTIVE GASTROENTERITIS AND COLITIS, UNSPECIFIED SNOMED Code(s): 73492249 (2) Diarrhea Current Visit: Yes Status: Acute Code(s): R19.7 - DIARRHEA, UNSPECIFIED SNOMED Code(s): 83309984 Plan: Supportive care Low fiber, low residual diet as tolerated Avoid lactose products Continue to monitor symptoms and stool output Continue IV steroid therapy Rifaximin 550 mg 3 times a day added for possible bacterial overgrowth in the setting of radiation Thank you for allowing us to participate in the care of the patient we'll con filomena to follow
[2019-09-21] MEDS: ACETAMINOPHEN TAB 325 MG TAB PO PRN ×3 (03:54→19:54)
[2019-09-21 07:39] LABS: Basophils % (A) 0 %; Eosinophils % (A) 1 %; HCT 31.5 % (39.0-53.0); HGB 10.2 gm/dL (13.0-17.5); Lymphocytes # (A) 0.3 k/uL (1.0-4.8); Lymphocytes % (A) 10 %; MCH 29.3 pg (25.0-35.0); MCHC 32.5 g/dL (31.0-37.0); MCV 90.3 fL (80.0-100.0); Mean Platelet Volume 7.2; Monocytes # (A) 0.1 k/uL (0-1.0); Monocytes % (A) 4 %; Neutrophils # (A) 2.1 k/uL (1.3-7.7); Neutrophils % (A) 83 %; Platelet Count 245 k/uL (150-450); RBC 3.48 m/uL (4.30-5.90); RDW 13.6 % (11.5-15.5); WBC 2.6 k/uL (3.8-10.6)
[2019-09-21 07:47] LABS: African American GFR (CKD) >90 (>60 ml/min/1.73 sqM); Anion Gap 4 mmol/L; Blood Urea Nitrogen 15 mg/dL (9-20); Calcium 8.2 mg/dL (8.4-10.2); Carbon Dioxide 29 mmol/L (22-30); Chloride 103 mmol/L (98-107); Glucose 141 mg/dL (74-99); Non-African American GFR(CKD) >90 (>60 ml/min/1.73 sqM); Potassium 3.8 mmol/L (3.5-5.1); Sodium 136 mmol/L (137-145)
[2019-09-21] MEDS: methylPREDNISolone SOD SUCCI 40 MG/ML 1 ML VIAL IV SCH ×3 (08:54→23:14)
[2019-09-21] MEDS: HEPARIN SODIUM,PORCINE 5,000 UNIT/ML 1 ML VIAL SQ SCH ×2 (08:54→19:54)
[2019-09-21] MEDS: MORPHINE SULFATE 4 MG/ML SYRINGE IVP PRN ×2 (08:55→22:02)
[2019-09-21] MEDS: PANTOPRAZOLE 40 MG/10 ML VIAL IVP SCH (08:55)
[2019-09-21] MEDS: FOLIC ACID 1 MG TAB PO SCH (08:55)
[2019-09-21] MEDS: THIAMINE 100 MG TAB PO SCH (08:55)
[2019-09-21] MEDS: NYSTATIN 100,000 UNIT/ML SUSP 500,000 UNIT/5 ML CUP PO SCH ×4 (08:57→22:02)
[2019-09-21] MEDS: RIFAXIMIN 550 MG TABLET PO SCH ×3 (08:57→22:03)
[2019-09-21] MEDS: FLUDROCORTISONE 0.1 MG TAB PO SCH (08:58)
--- NOTE | 2019-09-21 10:31 | P.PN ---
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 and RCC with metastases, anemia, hyponatremia, multiple apparently, hypoalbuminemia, severe protein calorie malnutrition Patient states that he has history of right renal cell carcinoma in 1996, next year they found metastases to the lung, at that time he was treated with ch emotherapy and radiotherapy, he was getting regular checkup last May when found to have recurrence of his right renal cancer on the same spot found on CAT scan of the abdomen so he got 5 days of radiotherapy on May, after radiotherapy patient was started getting sick with abdominal Pain However the Diarrhea Did Not Start until July 2019, This Is the Fourth Time His Been Admitted to the Hospital with the Same Diagnosis of Abdominal Pain of Diarrhea, One at [place], One I [place] and 1 at [facility] and This Is the Second Time. Patient currently complaining of from lower abdominal pain, mild to moderate, is appreciated with loose bowel movement about 6 times per day, brown with no blood, has some nausea with decreased appetite but no vomiting. No other complaints no chest pain or dyspnea or fever or coughing. Patient states he had colonoscopy/EGD and [place] [facility] about 3 weeks ago Vitals his stable and patient is afebrile. Left shoulder C of 2.8K, hemoglobin 12.2, platelets 279, INR 1.1, platelet colitis of sodium presets jump and creatinine are within normal limits, mildly elevated carbon dioxide at 37. Urinalysis is not suspicious of infection, C. diff is negative. EKG showing normal sinus rhythm at 80 with QTC of 431, no significant ST T changes, Chest x- ray: No acute process, minimal left-sided pleural reaction is the same or improved compared to last exam. On admission was started on D5 half-normal saline, Zofran, Protonix and normal saline fluids. 09/21/2019 She still feeling weak, this fully awake and oriented, he still had diarrhea yesterday and he has to loose bowel movement this morning but they are slightly improving as per patient. No abdominal pain only with bowel movement with ferritin about 4/10. No nausea vomiting and tolerating diet well. CAT scan of the abdomen and pelvis showing pancolitis and he was a started on solid Medrol 20 mg every 8 hours and rifaximin for possible bacterial overgrowth, discussed the case with GI team most likely is related to his radiation therapy. Stool culture is still pending however C. diff is negative. Still left a foreign is positive. He remains on normal saline and close monitoring of his blood pressure. Labs show WBC of 2.6, hemoglobin stable 10.2, electrolytes are better and with an normal potassium was slightly low sodium at 136, creatinine normal. I discussed the case with oncology team, no need for consult at this time as there is no need for chemoradiation therapy until his colitis improve, patient can follow-up as an outpatient with his oncologist at [place]. Oncology consult was canceled Review of systems CONSTITUTIONAL: No fever, no malaise, no fatigue. HEENT: No recent visual problems or hearing problems. Denied any sore throat. CARDIOVASCULAR: No orthopnea, PND, no palpitations, no syncope. PULMONARY: No shortness of breath, no cough, no hemoptysis. NEUROLOGICAL: No headaches, no weakness, no numbness. HEMATOLOGICAL: Denies any bleeding or petechiae. GENITOURINARY: Denies any burning micturition, frequency, or urgency. MUSCULOSKELETAL/RHEUMATOLOGICAL: Denies any joint pain, swelling, or any muscle pain. ENDOCRINE: Denies any polyuria or polydipsia. Active Medications Generic Name Dose Route Start Last Admin Trade Name Freq PRN Reason Stop Dose Admin Acetaminophen 325 mg 09/19/19 22:15 09/21/19 03:54 Tylenol Tab PO 325 mg Q4H PRN Administration Pain Barnes Syrup 5 ml 09/20/19 12:40 Barnes Syrup PO Q6HR PRN VANCO FLAVORING Escitalopram Oxalate 10 mg 09/20/19 21:00 09/20/19 20:00 Lexapro PO 10 mg HS DEVAUGHN Administration Fludrocortisone Acetate 0.2 mg 09/20/19 12:00 09/21/19 08:58 Florinef PO 0.2 mg DAILY@1200 DEVAUGHN Administration Folic Acid 1 mg 09/20/19 12:00 09/21/19 08:55 Folic Acid PO 1 mg DAILY@1200 DEVAUGHN Administration Heparin Sodium (Porcine) 5,000 unit 09/20/19 09:00 09/21/19 08:54 Heparin SQ 5,000 unit Q12HR DEVAUGHN Administration Dextrose/Sodium Chloride 1,000 mls @ 75 mls/hr 09/20/19 10:15 09/20/19 10:22 Dextrose 5%-Ns Iv Soln IV 50 mls/hr .[id number] DEVAUGHN Administration Methylprednisolone Sodium Succinate 20 mg 09/20/19 10:15 09/21/19 08:54 Solu-Medrol IV 20 mg Q8HR DEVAUGHN Administration Miscellaneous Information 1 each 09/20/19 12:39 Potassium Per Protocol MISCELLANE DAILY PRN Per Protocol Protocol Miscellaneous Information 1 each 09/20/19 13:07 Potassium Per Protocol MISCELLANE DAILY PRN Per Protocol Protocol Miscellaneous Information 1 each 09/20/19 19:33 Potassium Per Protocol MISCELLANE DAILY PRN Per Protocol Protocol Morphine Sulfate 4 mg 09/19/19 20:03 09/21/19 08:55 Morphine Sulfate (Inj) IVP 4 mg Q4HR PRN Administration Pain Nystatin 500,000 unit 09/20/19 09:00 09/21/19 08:57 Mycostatin Oral Susp PO 500,000 unit QID DEVAUGHN Administration Ondansetron HCl 4 mg 09/19/19 20:03 Zofran IVP Q6HR PRN Nausea And Vomiting Pantoprazole Sodium 40 mg 09/20/19 09:00 09/21/19 08:55 Protonix IVP 40 mg DAILY DEVAUGHN Administration Prochlorperazine Maleate 5 mg 09/20/19 07:58 Compazine PO Q12HR PRN Nausea And Vomiting Rifaximin 550 mg 09/20/19 16:00 09/21/19 08:57 Xifaxan PO 10/20/19 16:01 550 mg TID DEVAUGHN Administration Tamsulosin HCl 0.4 mg 09/20/19 21:00 09/20/19 20:00 Flomax PO 0.4 mg HS DEVAUGHN Administration Thiamine HCl 100 mg 09/20/19 12:00 09/21/19 08:55 Vitamin B-1 PO 100 mg DAILY@1200 DEVAUGHN Administration Objective - Vital Signs Vital signs: Vital Signs Temp 97.7 F 09/21/19 05:00 Pulse 68 09/21/19 05:00 Resp 16 09/21/19 05:00 BP 93/58 09/21/19 05:00 Pulse Ox 97 09/21/19 05:00 Intake & Output 09/20/19 09/21/19 09/21/19 18:59 06:59 18:59 Intake Total 450 750 Balance 450 750 Weight 53.5 kg Intake: Intake, IV Titration 750 Amount Dextrose 5%-0.9% NaCl 1, 750 000 ml @ 75 mls/hr IV . [id number] DEVAUGHN Rx#:[id number] Oral 450 Other: Voiding Method Toilet Toilet # Voids 3 # Bowel Movements 6 - Exam GENERAL: The patient is alert and oriented x3, not in any acute distress. Well developed, well nourished. HEENT: Pupils are round and equally reacting to light. EOMI. No scleral icterus. No conjunctival pallor. Normocephalic, atraumatic. No pharyngeal erythema. No thyromegaly. CARDIOVASCULAR: S1 and S2 present. No murmurs, rubs, or gallops. PULMONARY: Chest is clear to auscultation, no wheezing or crackles. -ABDOMEN: Soft, lower abdominal tenderness with no rebound tenderness, nondistended, normoactive bowel sounds. No palpable organomegaly. MUSCULOSKELETAL: No joint swelling or deformity. EXTREMITIES: No cyanosis, clubbing, or pedal edema. NEUROLOGICAL: Gross neurological examination did not reveal any focal deficits. SKIN: No rashes. No petechiae - Labs CBC & Chem 7: 09/21/19 06:59 09/21/19 06:59 Labs: Abnormal Lab Results - Last 24 Hours (Table) 09/20/19 09/20/19 09/20/19 Range/Units 07:03 10:19 18:48 WBC (3.8-10.6) k/uL RBC (4.30-5.90) m/uL Hgb (13.0-17.5) gm/dL Hct (39.0-53.0) % Lymphocytes # (1.0-4.8) k/uL Sodium (137-145) mmol/L Potassium 3.3 L (3.5-5.1) mmol/L Creatinine (0.66-1.25) mg/dL Glucose (74-99) mg/dL Calcium (8.4-10.2) mg/dL Vitamin B12 1278.0 H (200.0-944.0) pg/mL Stool Lactoferrin POSITIVE H (NEGATIVE) 09/21/19 09/21/19 Range/Units 06:59 06:59 WBC 2.6 L (3.8-10.6) k/uL RBC 3.48 L (4.30-5.90) m/uL Hgb 10.2 L (13.0-17.5) gm/dL Hct 31.5 L (39.0-53.0) % Lymphocytes # 0.3 L (1.0-4.8) k/uL Sodium 136 L (137-145) mmol/L Potassium (3.5-5.1) mmol/L Creatinine 0.51 L (0.66-1.25) mg/dL Glucose 141 H (74-99) mg/dL Calcium 8.2 L (8.4-10.2) mg/dL Vitamin B12 (200.0-944.0) pg/mL Stool Lactoferrin (NEGATIVE) Microbiology - Last 24 Hours (Table) 09/19/19 18:51 Blood Culture - Preliminary Blood No Growth after 24 hours 09/20/19 10:19 Stool Culture - Preliminary Stool Assessment and Plan Assessment: Pancolitis, related to radiation, versus autoimmune, rule out infectious Generalized weakness and tiredness Relative hypotension Right renal cancer with metastasis, on radiation therapy, chemotherapy pending History of Diffuse ulcerations and multiple lesions, EGD, colonoscopy clinically, 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 Labs and medication were reviewed.. Continue same treatment. Continue with symptomatic treatment. Resume home medication. Monitor lytes and vitals. DVT and GI prophylaxis. Further recommendations of the clinical course of the patient DVT prophylaxis: Subcutaneous heparin GI Prophylaxis: Ppi PT/OT: Pending Prognosis is guarded
--- NOTE | 2019-09-21 11:33 | P.GSCN ---
History of Present Illness Consult date: 09/21/19 Reason for Consult: Pancolitis History of present illness: Cyst 68-year-old male who's had diarrhea for 1 month. Patient is also had some complaints of mild abdominal pain. Patient has lost approximately 20 pounds over the last 6 months. His recent CAT scan shows evidence of pancolitis. Past Medical History Past Medical History: Cancer, Renal Disease Additional Past Medical History / Comment(s): Right renal CA(Radiation at [facility]... last dose in May of 2019), Lung ca History of Any Multi-Drug Resistant Organisms: None Reported Past Surgical History: Appendectomy, Orthopedic Surgery Additional Past Surgical History / Comment(s): right kidney: partial kidney removed, Bilateral shoulder, section of lung removed (December of 2018) Past Psychological History: No Psychological Hx Reported Smoking Status: Never smoker Past Alcohol Use History: None Reported Past Drug Use History: None Reported - Past Family History Father Family Medical History: No Reported History Medications and Allergies Home Medications Medication Instructions Recorded Confirmed Type Pantoprazole Sodium [Protonix] 40 mg PO AC-BID 09/05/19 09/19/19 History Tamsulosin HCl [Flomax] 0.4 mg PO HS 09/05/19 09/19/19 History Escitalopram [Lexapro] 10 mg PO HS 30 Days #30 tab 09/12/19 09/19/19 Rx Folic Acid 1 mg PO DAILY@1200 30 Days #30 tab 09/12/19 09/19/19 Rx Nystatin 100,000 Unit/ml Susp 500,000 unit PO QID #120 ml 09/12/19 09/19/19 Rx [Mycostatin Oral Susp] Prochlorperazine [Compazine] 5 mg PO Q12HR PRN #20 tab 09/12/19 09/19/19 Rx Thiamine [Vitamin B-1] 100 mg PO DAILY@1200 30 Days #30 09/12/19 09/19/19 Rx tab Acetaminophen Tab [Tylenol] 325 mg PO Q4H 09/19/19 09/19/19 History Fludrocortisone [Florinef] 0.2 mg PO DAILY@1200 09/19/19 09/19/19 History predniSONE See Taper PO DAILY 09/19/19 09/19/19 History Allergies Allergy/AdvReac Type Severity Reaction Status Date / Time No Known Allergies Allergy Verified 09/19/19 20:33 Surgical - Exam Vital Signs Temp Pulse Resp BP Pulse Ox 98.5 F 80 19 116/81 97 09/19/19 17:40 09/19/19 17:40 09/19/19 17:40 09/19/19 17:40 09/19/19 17:40 - General well developed, well nourished, no distress - Eyes PERRL - ENT normal pinna - Neck no masses - Respiratory normal expansion - Cardiovascular Rhythm: regular - Abdomen Abdomen: soft, non tender Results - Labs 09/21/19 06:59 09/21/19 06:59 Abnormal Lab Results - Last 24 Hours (Table) 09/20/19 09/20/19 09/20/19 Range/Units 07:03 10:19 18:48 WBC (3.8-10.6) k/uL RBC (4.30-5.90) m/uL Hgb (13.0-17.5) gm/dL Hct (39.0-53.0) % Lymphocytes # (1.0-4.8) k/uL Sodium (137-145) mmol/L Potassium 3.3 L (3.5-5.1) mmol/L Creatinine (0.66-1.25) mg/dL Glucose (74-99) mg/dL Calcium (8.4-10.2) mg/dL Vitamin B12 1278.0 H (200.0-944.0) pg/mL Stool Lactoferrin POSITIVE H (NEGATIVE) 09/21/19 09/21/19 Range/Units 06:59 06:59 WBC 2.6 L (3.8-10.6) k/uL RBC 3.48 L (4.30-5.90) m/uL Hgb 10.2 L (13.0-17.5) gm/dL Hct 31.5 L (39.0-53.0) % Lymphocytes # 0.3 L (1.0-4.8) k/uL Sodium 136 L (137-145) mmol/L Potassium (3.5-5.1) mmol/L Creatinine 0.51 L (0.66-1.25) mg/dL Glucose 141 H (74-99) mg/dL Calcium 8.2 L (8.4-10.2) mg/dL Vitamin B12 (200.0-944.0) pg/mL Stool Lactoferrin (NEGATIVE) Microbiology - Last 24 Hours (Table) 09/19/19 18:51 Blood Culture - Preliminary Blood No Growth after 24 hours 09/20/19 10:19 Stool Culture - Preliminary Stool Diabetes panel 09/20/19 09/20/19 09/20/19 Range/Units 07:03 18:48 23:42 Sodium (137-145) mmol/L Potassium 3.3 L 3.6 (3.5-5.1) mmol/L Chloride (98-107) mmol/L Carbon Dioxide (22-30) mmol/L BUN (9-20) mg/dL Creatinine (0.66-1.25) mg/dL Glucose (74-99) mg/dL Hemoglobin A1c 5.2 (4.0-6.0) % Calcium (8.4-10.2) mg/dL 09/21/19 Range/Units 06:59 Sodium 136 L (137-145) mmol/L Potassium 3.8 (3.5-5.1) mmol/L Chloride 103 (98-107) mmol/L Carbon Dioxide 29 (22-30) mmol/L BUN 15 (9-20) mg/dL Creatinine 0.51 L (0.66-1.25) mg/dL Glucose 141 H (74-99) mg/dL Hemoglobin A1c (4.0-6.0) % Calcium 8.2 L (8.4-10.2) mg/dL Calcium panel 09/21/19 Range/Units 06:59 Calcium 8.2 L (8.4-10.2) mg/dL Pituitary panel 09/20/19 09/20/19 09/21/19 Range/Units 18:48 23:42 06:59 Sodium 136 L (137-145) mmol/L Potassium 3.3 L 3.6 3.8 (3.5-5.1) mmol/L Chloride 103 (98-107) mmol/L Carbon Dioxide 29 (22-30) mmol/L BUN 15 (9-20) mg/dL Creatinine 0.51 L (0.66-1.25) mg/dL Glucose 141 H (74-99) mg/dL Calcium 8.2 L (8.4-10.2) mg/dL Adrenal panel 09/20/19 09/20/19 09/21/19 Range/Units 18:48 23:42 06:59 Sodium 136 L (137-145) mmol/L Potassium 3.3 L 3.6 3.8 (3.5-5.1) mmol/L Chloride 103 (98-107) mmol/L Carbon Dioxide 29 (22-30) mmol/L BUN 15 (9-20) mg/dL Creatinine 0.51 L (0.66-1.25) mg/dL Glucose 141 H (74-99) mg/dL Calcium 8.2 L (8.4-10.2) mg/dL Assessment and Plan Assessment: Pancolitis. Patient will most likely undergo colonoscopy at some point once he is stable. His C. diff is negative.
[2019-09-21] MEDS: DEXTROSE 5%-0.9% NACL 1,000 ML IV SCH ×2 (12:53→19:50)
[2019-09-21] MEDS: TAMSULOSIN 0.4 MG CAP.ER.24H PO SCH (19:54)
[2019-09-21] MEDS: ESCITALOPRAM 10 MG TAB PO SCH (20:41)
--- NOTE | 2019-09-21 22:49 | P.PN ---
Subjective Progress Note Date: 09/21/19 Principal diagnosis: Colitis, diarrhea Patient reports feeling much better today. Two loose bowel movements this morning but overall decreased with improved energy. Objective - Vital Signs Vital signs: Vital Signs Temp 97.7 F 09/21/19 05:00 Pulse 68 09/21/19 08:00 Resp 16 09/21/19 08:00 BP 93/58 09/21/19 05:00 Pulse Ox 97 09/21/19 05:00 Intake & Output 09/20/19 09/21/19 09/21/19 18:59 06:59 18:59 Intake Total 450 750 240 Output Total 300 Balance 450 750 -60 Weight 53.5 kg Intake: Intake, IV Titration 750 Amount Dextrose 5%-0.9% NaCl 1, 750 000 ml @ 75 mls/hr IV . [id number] Rx#:[id number] Oral 450 240 Output: Urine 300 Other: Voiding Method Toilet Toilet Toilet # Voids 3 # Bowel Movements 6 - Exam On physical examination, patient appears comfortable in no apparent distress. HEAD: Normocephalic, atraumatic. EYES: No scleral icterus. No conjunctival injection. MOUTH: No lesions, tongue midline. NECK: Trachea midline, no gross abnormalities. ABDOMEN: Soft, thin. Bowel sounds are positive. No organomegaly. No guarding or rigidity. EXTREMITIES: No pedal edema. SKIN: No rashes, no jaundice. NEUROLOGIC: Alert and oriented x3. No focal deficits. - Labs CBC & Chem 7: 09/21/19 06:59 09/21/19 06:59 Labs: Abnormal Lab Results - Last 24 Hours (Table) 09/20/19 09/20/19 09/20/19 Range/Units 07:03 10:19 18:48 WBC (3.8-10.6) k/uL RBC (4.30-5.90) m/uL Hgb (13.0-17.5) gm/dL Hct (39.0-53.0) % Lymphocytes # (1.0-4.8) k/uL Sodium (137-145) mmol/L Potassium 3.3 L (3.5-5.1) mmol/L Creatinine (0.66-1.25) mg/dL Glucose (74-99) mg/dL Calcium (8.4-10.2) mg/dL Vitamin B12 1278.0 H (200.0-944.0) pg/mL Stool Lactoferrin POSITIVE H (NEGATIVE) 09/21/19 09/21/19 Range/Units 06:59 06:59 WBC 2.6 L (3.8-10.6) k/uL RBC 3.48 L (4.30-5.90) m/uL Hgb 10.2 L (13.0-17.5) gm/dL Hct 31.5 L (39.0-53.0) % Lymphocytes # 0.3 L (1.0-4.8) k/uL Sodium 136 L (137-145) mmol/L Potassium (3.5-5.1) mmol/L Creatinine 0.51 L (0.66-1.25) mg/dL Glucose 141 H (74-99) mg/dL Calcium 8.2 L (8.4-10.2) mg/dL Vitamin B12 (200.0-944.0) pg/mL Stool Lactoferrin (NEGATIVE) Microbiology - Last 24 Hours (Table) 09/19/19 18:51 Blood Culture - Preliminary Blood No Growth after 24 hours 09/20/19 10:19 Stool Culture - Preliminary Stool Assessment and Plan (1) Colitis Narrative/Plan: 68-year-old male with a history of renal cell cancer treated with nephrectomy in the with recurrence in 2018 requiring radiation therapy of the right renal bed was subsequently developed symptoms of gas, bloating, distention, abdominal pain, and loose stools after recent admission for similar complaints. Patient currently reporting improvement in symptoms on steroid therapy. He underwent EGD and colonoscopy for evaluation at the clinic in August 2019 with findings of gastritis, nonobstructing Schatzki's ring and hiatal hernia with numerous ulcerations noted throughout the colon and in the terminal ileum. Chronic active inflammation seen on pathology from biopsies of the colon with note from pathologist stating that in addition to inflammatory process medication effect, infection or other etiology cannot be ruled out. Given the correlation of the patient's symptoms with radiation therapy suspect inflammatory changes secondary to radiation. Testing for Clostridium difficile negative and lactoferrin positive. Computed tomography scan again read demonstrates pancolitis. Current Visit: Yes Status: Acute Code(s): K52.9 - NONINFECTIVE GASTROENTERITIS AND COLITIS, UNSPECIFIED SNOMED Code(s): 83032090 (2) Diarrhea Current Visit: Yes Status: Acute Code(s): R19.7 - DIARRHEA, UNSPECIFIED SNOMED Code(s): 11297303 Plan: Supportive care Low fiber, low residual diet as tolerated Avoid lactose products Continue to monitor symptoms and stool output Continue IV steroid therapy Rifaximin 550 mg 3 times a day added for possible bacterial overgrowth in the setting of radiation Thank you for allowing us to participate in the care of the patient we'll continue to follow
[2019-09-22] MEDS: MORPHINE SULFATE 4 MG/ML SYRINGE IVP PRN ×2 (02:08→06:07)
[2019-09-22 06:12] LABS: African American GFR (CKD) >90 (>60 ml/min/1.73 sqM); Anion Gap 5 mmol/L; Blood Urea Nitrogen 19 mg/dL (9-20); Calcium 8.5 mg/dL (8.4-10.2); Carbon Dioxide 29 mmol/L (22-30); Chloride 102 mmol/L (98-107); Glucose 129 mg/dL (74-99); Non-African American GFR(CKD) >90 (>60 ml/min/1.73 sqM); Potassium 3.6 mmol/L (3.5-5.1); Sodium 136 mmol/L (137-145)
[2019-09-22 06:17] LABS: Basophils % (A) 0 %; Eosinophils % (A) 0 %; HCT 33.4 % (39.0-53.0); HGB 10.9 gm/dL (13.0-17.5); Lymphocytes # (A) 0.3 k/uL (1.0-4.8); Lymphocytes % (A) 11 %; MCH 29.4 pg (25.0-35.0); MCHC 32.6 g/dL (31.0-37.0); MCV 90.2 fL (80.0-100.0); Mean Platelet Volume 7.3; Monocytes # (A) 0.1 k/uL (0-1.0); Monocytes % (A) 4 %; Neutrophils # (A) 2.7 k/uL (1.3-7.7); Neutrophils % (A) 84 %; Platelet Count 310 k/uL (150-450); RBC 3.71 m/uL (4.30-5.90); RDW 13.4 % (11.5-15.5); WBC 3.2 k/uL (3.8-10.6)
--- NOTE | 2019-09-22 08:55 | P.PN ---
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 and RCC with metastases, anemia, hyponatremia, multiple apparently, hypoalbuminemia, severe protein calorie malnutrition Patient states that he has history of right renal cell carcinoma in 1996, next year they found metastases to the lung, at that time he was treated with ch emotherapy and radiotherapy, he was getting regular checkup last May when found to have recurrence of his right renal cancer on the same spot found on CAT scan of the abdomen so he got 5 days of radiotherapy on May, after radiotherapy patient was started getting sick with abdominal Pain However the Diarrhea Did Not Start until July 2019, This Is the Fourth Time His Been Admitted to the Hospital with the Same Diagnosis of Abdominal Pain of Diarrhea, One at [place], One I [place] and 1 at This [facility] and This Is the Second Time. Patient currently complaining of from lower abdominal pain, mild to moderate, is appreciated with loose bowel movement about 6 times per day, brown with no blood, has some nausea with decreased appetite but no vomiting. No other complaints no chest pain or dyspnea or fever or coughing. Patient states he had colonoscopy/EGD and [place] [facility] about 3 weeks ago Vitals his stable and patient is afebrile. Left shoulder C of 2.8K, hemoglobin 12.2, platelets 279, INR 1.1, platelet colitis of sodium presets jump and creatinine are within normal limits, mildly elevated carbon dioxide at 37. Urinalysis is not suspicious of infection, C. diff is negative. EKG showing normal sinus rhythm at 80 with QTC of 431, no significant ST T changes, Chest x- ray: No acute process, minimal left-sided pleural reaction is the same or improved compared to last exam. On admission was started on D5 half-normal saline, Zofran, Protonix and normal saline fluids. 09/21/2019 She still feeling weak, this fully awake and oriented, he still had diarrhea yesterday and he has to loose bowel movement this morning but they are slightly improving as per patient. No abdominal pain only with bowel movement with ferritin about 4/10. No nausea vomiting and tolerating diet well. CAT scan of the abdomen and pelvis showing pancolitis and he was a started on solid Medrol 20 mg every 8 hours and rifaximin for possible bacterial overgrowth, discussed the case with GI team most likely is related to his radiation therapy. Stool culture is still pending however C. diff is negative. Still left a foreign is positive. He remains on normal saline and close monitoring of his blood pressure. Labs show WBC of 2.6, hemoglobin stable 10.2, electrolytes are better and with an normal potassium was slightly low sodium at 136, creatinine normal. I discussed the case with oncology team, no need for consult at this time as there is no need for chemoradiation therapy until his colitis improve, patient can follow-up as an outpatient with his oncologist at [place]. Oncology consult was canceled 09/22/2019 Patient is awake and alert, resting comfortably in bed with some abdominal pain. Last night had dropped night as he states with more severe lower abdominal pain similar to the pain he came in with, it was up to 7-8/10 in severity, coming down to 2/10 this morning, patient feels bloated however his abdomen is still distended, he had 2 loose bowel movement yesterday, none since this morning. No nausea vomiting and is tolerating diet well. No other new complaints Other than that his vitals looks stable. WBC is slightly trending up to 3.2 KG, hemoglobin 10.9, sodium 136. Glucose is 129 patient remains on D5 normal saline at 75 mL/h, Solu-Medrol 20 mg every 8 hours and Keflex and mean. We are going to order abdominal x-ray today Objective - Vital Signs Vital signs: Vital Signs Temp 97.9 F 09/22/19 05:00 Pulse 73 09/22/19 05:00 Resp 16 09/22/19 05:00 BP 100/58 09/22/19 05:00 Pulse Ox 96 09/22/19 05:00 Intake & Output 09/21/19 09/22/19 09/22/19 18:59 06:59 18:59 Intake Total 240 550 Output Total 600 Balance -360 550 Intake: Intake, IV Titration 550 Amount Dextrose 5%-0.9% NaCl 1, 550 000 ml @ 75 mls/hr IV . [id number] [facility] Rx#:[id number] Oral 240 Output: Urine 600 Other: Voiding Method Toilet Toilet # Voids 3 1 - Exam GENERAL: The patient is alert and oriented x3, not in any acute distress. Well developed, well nourished. HEENT: Pupils are round and equally reacting to light. EOMI. No scleral icterus. No conjunctival pallor. Normocephalic, atraumatic. No pharyngeal erythema. No thyromegaly. CARDIOVASCULAR: S1 and S2 present. No murmurs, rubs, or gallops. PULMONARY: Chest is clear to auscultation, no wheezing or crackles. -ABDOMEN: Soft, lower abdominal tenderness with no rebound tenderness, nondistended, normoactive bowel sounds. No palpable organomegaly. MUSCULOSKELETAL: No joint swelling or deformity. EXTREMITIES: No cyanosis, clubbing, or pedal edema. NEUROLOGICAL: Gross neurological examination did not reveal any focal deficits. SKIN: No rashes. 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, rule out infectious Generalized weakness and tiredness Relative hypotension Right renal cancer with metastasis, on radiation therapy, chemotherapy pending History of Diffuse ulcerations and multiple lesions, EGD, colonoscopy clinically, 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 Labs and medication were reviewed.. Continue same treatment. Continue with symptomatic treatment. Resume home medication. Monitor lytes and vitals. DVT and GI prophylaxis. Further recommendations of the clinical course of the patient DVT prophylaxis: Subcutaneous heparin GI Prophylaxis: Ppi PT/OT: Pending Prognosis is guarded
--- NOTE | 2019-09-22 09:19 | XR ---
EXAMINATION TYPE: XR abdomen 1V , 2 VIEWS DATE OF EXAM ORDERED: 09/22/2019 HISTORY: f/u , pancolitis. COMPARISON: None. FINDINGS: The lung bases are clear. Within the abdomen, the abdominal gas pattern is within normal limits. There is no evidence of obstru ction or free air. No unusual calcifications are seen. IMPRESSION: NO ACUTE INTRA-ABDOMINAL ABNORMALITY.
[2019-09-22] MEDS: methylPREDNISolone SOD SUCCI 40 MG/ML 1 ML VIAL IV SCH ×3 (09:42→23:11)
[2019-09-22] MEDS: HEPARIN SODIUM,PORCINE 5,000 UNIT/ML 1 ML VIAL SQ SCH ×2 (09:42→21:41)
[2019-09-22] MEDS: THIAMINE 100 MG TAB PO SCH (09:42)
[2019-09-22] MEDS: FOLIC ACID 1 MG TAB PO SCH (09:42)
[2019-09-22] MEDS: RIFAXIMIN 550 MG TABLET PO SCH ×3 (09:43→21:41)
[2019-09-22] MEDS: NYSTATIN 100,000 UNIT/ML SUSP 500,000 UNIT/5 ML CUP PO SCH ×4 (09:43→21:41)
[2019-09-22] MEDS: FLUDROCORTISONE 0.1 MG TAB PO SCH (09:43)
--- NOTE | 2019-09-22 10:26 | P.PN ---
Progress Note - Text Progress Note Date: 09/22/19 The patient's resting comfortably in his bed. He states he had severe abdominal pain last night. It has improved. He is mainly complaints of pain in the right lower quadrant. On exam his vital signs are stable. His abdomen soft. There is some mild tenderness in right lower quadrant. There is no rebound or guarding. History of billings colitis. Unsure etiology this point. May be infectious or due to her previous radiation therapy. Patient will have supportive care. We will observe him closely.
[2019-09-22] MEDS: ACETAMINOPHEN TAB 325 MG TAB PO PRN ×2 (14:18→19:25)
[2019-09-22] MEDS: DEXTROSE 5%-0.9% NACL 1,000 ML IV SCH (14:24)
[2019-09-22] MEDS: ONDANSETRON 4 MG/2 ML VIAL IVP PRN (16:42)
--- NOTE | 2019-09-22 19:25 | P.PN ---
Subjective Progress Note Date: 09/22/19 Principal diagnosis: Colitis, diarrhea Patient reports feeling better today. No bowel movements this morning. No nausea or vomiting. He has tolerated his diet. Objective - Vital Signs Vital signs: Vital Signs Temp 97.9 F 09/22/19 05:00 Pulse 73 09/22/19 05:00 Resp 16 09/22/19 05:00 BP 100/58 09/22/19 05:00 Pulse Ox 96 09/22/19 05:00 Intake & Output 09/21/19 09/22/19 09/22/19 18:59 06:59 18:59 Intake Total 240 550 Output Total 600 Balance -360 550 Intake: Intake, IV Titration 550 Amount Dextrose 5%-0.9% NaCl 1, 550 000 ml @ 75 mls/hr IV . [id number] [facility] Rx#:[id number] Oral 240 Output: Urine 600 Other: Voiding Method Toilet Toilet Toilet # Voids 3 1 - Exam On physical examination, patient appears comfortable in no apparent distress. HEAD: Normocephalic, atraumatic. EYES: No scleral icterus. No conjunctival injection. MOUTH: No lesions, tongue midline. NECK: Trachea midline, no gross abnormalities. ABDOMEN: Soft, thin. Bowel sounds are positive. No organomegaly. No guarding or rigidity. EXTREMITIES: No pedal edema. SKIN: No rashes, no jaundice. NEUROLOGIC: Alert and oriented x3. No focal deficits. - Labs CBC & Chem 7: 09/22/19 05:48 09/22/19 05:48 Labs: Abnormal Lab Results - Last 24 Hours (Table) 09/22/19 09/22/19 Range/Units 05:48 05:48 WBC 3.2 L (3.8-10.6) k/uL RBC 3.71 L (4.30-5.90) m/uL Hgb 10.9 L (13.0-17.5) gm/dL Hct 33.4 L (39.0-53.0) % Lymphocytes # 0.3 L (1.0-4.8) k/uL Sodium 136 L (137-145) mmol/L Creatinine 0.53 L (0.66-1.25) mg/dL Glucose 129 H (74-99) mg/dL Microbiology - Last 24 Hours (Table) 09/19/19 18:51 Blood Culture - Preliminary Blood No Growth after 48 hours Assessment and Plan (1) Colitis Narrative/Plan: 68-year-old male with a history of renal cell cancer treated with nephrectomy in the with recurrence in 2018 requiring radiation therapy of the right renal bed was subsequently developed symptoms of gas, bloating, distention, abdominal pain, and loose stools after recent admission for similar complaints. Patient currently reporting improvement in symptoms on steroid therapy. He underwent EGD and colonoscopy for evaluation at the clinic in August 2019 with findings of gastritis, nonobstructing Schatzki's ring and hiatal hernia with numerous ulcerations noted throughout the colon and in the terminal ileum. Chronic active inflammation seen on pathology from biopsies of the colon with note from pathologist stating that in addition to inflammatory process medication effect, infection or other etiology cannot be ruled out. Given the correlation of the patient's symptoms with radiation therapy suspect inflammatory changes secondary to radiation. Testing for Clostridium difficile negative and lactoferrin positive. Computed tomography scan again read demonstrates pancolitis. Current Visit: Yes Status: Acute Code(s): K52.9 - NONINFECTIVE GASTROENTERITIS AND COLITIS, UNSPECIFIED SNOMED Code(s): 39147515 (2) Diarrhea Current Visit: Yes Status: Acute Code(s): R19.7 - DIARRHEA, UNSPECIFIED SNOMED Code(s): 74462660 Plan: Supportive care Low fiber, low residual diet as tolerated Avoid lactose products Continue to monitor symptoms and stool output Continue IV steroid therapy Rifaximin 550 mg 3 times a day added for possible bacterial overgrowth in the setting of radiation Thank you for allowing us to participate in the care of the patient we'll continue to follow
[2019-09-22] MEDS: TAMSULOSIN 0.4 MG CAP.ER.24H PO SCH (21:41)
[2019-09-22] MEDS: ESCITALOPRAM 10 MG TAB PO SCH (21:41)
[2019-09-23] MEDS: ACETAMINOPHEN TAB 325 MG TAB PO PRN ×5 (01:16→22:51)
[2019-09-23 07:41] LABS: Basophils % (A) 0 %; Eosinophils % (A) 0 %; HGB 10.5 gm/dL (13.0-17.5); Lymphocytes # (A) 0.2 k/uL (1.0-4.8); Lymphocytes % (A) 9 %; MCH 29.4 pg (25.0-35.0); MCHC 32.7 g/dL (31.0-37.0); Mean Platelet Volume 7.3; Monocytes # (A) 0.1 k/uL (0-1.0); Monocytes % (A) 4 %; Neutrophils # (A) 1.6 k/uL (1.3-7.7); Neutrophils % (A) 85 %; Platelet Count 238 k/uL (150-450); RBC 3.56 m/uL (4.30-5.90); RDW 13.7 % (11.5-15.5); WBC 1.9 k/uL (3.8-10.6)
[2019-09-23 07:49] LABS: African American GFR (CKD) >90 (>60 ml/min/1.73 sqM); Anion Gap 6 mmol/L; Blood Urea Nitrogen 15 mg/dL (9-20); Carbon Dioxide 31 mmol/L (22-30); Chloride 98 mmol/L (98-107); Glucose 113 mg/dL (74-99); Non-African American GFR(CKD) >90 (>60 ml/min/1.73 sqM); Potassium 3.2 mmol/L (3.5-5.1); Sodium 135 mmol/L (137-145)
[2019-09-23] MEDS ORDERED: LOPERAMIDE 2 MG CAP PO STA (08:29)
--- NOTE | 2019-09-23 08:31 | P.PN ---
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 and RCC with metastases, anemia, hyponatremia, multiple apparently, hypoalbuminemia, severe protein calorie malnutrition Patient states that he has history of right renal cell carcinoma in 1996, next year they found metastases to the lung, at that time he was treated with ch emotherapy and radiotherapy, he was getting regular checkup last May when found to have recurrence of his right renal cancer on the same spot found on CAT scan of the abdomen so he got 5 days of radiotherapy on May, after radiotherapy patient was started getting sick with abdominal Pain However the Diarrhea Did Not Start until July 2019, This Is the Fourth Time His Been Admitted to the Hospital with the Same Diagnosis of Abdominal Pain of Diarrhea, One at [place], One I [place] and 1 at This [facility] and This Is the Second Time. Patient currently complaining of from lower abdominal pain, mild to moderate, is appreciated with loose bowel movement about 6 times per day, brown with no blood, has some nausea with decreased appetite but no vomiting. No other complaints no chest pain or dyspnea or fever or coughing. Patient states he had colonoscopy/EGD and [place] [facility] about 3 weeks ago Vitals his stable and patient is afebrile. Left shoulder C of 2.8K, hemoglobin 12.2, platelets 279, INR 1.1, platelet colitis of sodium presets jump and creatinine are within normal limits, mildly elevated carbon dioxide at 37. Urinalysis is not suspicious of infection, C. diff is negative. EKG showing normal sinus rhythm at 80 with QTC of 431, no significant ST T changes, Chest x- ray: No acute process, minimal left-sided pleural reaction is the same or improved compared to last exam. On admission was started on D5 half-normal saline, Zofran, Protonix and normal saline fluids. 09/21/2019 She still feeling weak, this fully awake and oriented, he still had diarrhea yesterday and he has to loose bowel movement this morning but they are slightly improving as per patient. No abdominal pain only with bowel movement with ferritin about 4/10. No nausea vomiting and tolerating diet well. CAT scan of the abdomen and pelvis showing pancolitis and he was a started on solid Medrol 20 mg every 8 hours and rifaximin for possible bacterial overgrowth, discussed the case with GI team most likely is related to his radiation therapy. Stool culture is still pending however C. diff is negative. Still left a foreign is positive. He remains on normal saline and close monitoring of his blood pressure. Labs show WBC of 2.6, hemoglobin stable 10.2, electrolytes are better and with an normal potassium was slightly low sodium at 136, creatinine normal. I discussed the case with oncology team, no need for consult at this time as there is no need for chemoradiation therapy until his colitis improve, patient can follow-up as an outpatient with his oncologist at [place]. Oncology consult was canceled 09/22/2019 Patient is awake and alert, resting comfortably in bed with some abdominal pain. Last night had dropped night as he states with more severe lower abdominal pain similar to the pain he came in with, it was up to 7-8/10 in severity, coming down to 2/10 this morning, patient feels bloated however his abdomen is still distended, he had 2 loose bowel movement yesterday, none since this morning. No nausea vomiting and is tolerating diet well. No other new complaints Other than that his vitals looks stable. WBC is slightly trending up to 3.2 KG, hemoglobin 10.9, sodium 136. Glucose is 129 patient remains on D5 normal saline at 75 mL/h, Solu-Medrol 20 mg every 8 hours and Keflex and mean. We are going to order abdominal x-ray today 09/23/2019 Patient is awake and alert, however he feels weak, he had 5 bowel movements of diarrhea since yesterday, and also he has some lower abdominal pain but no nausea vomiting, he has low a per protocol ppetite this morning but he will try to eat. Labs showing WBC of 1.9, hemoglobin 10.5, sodium 135, potassium 3.2 which is going to be replaced. Vitals are stable, blood pressure 106/66 his medication including Solu-Medrol 20 mg IV, D5 normal sinus 75 and rifaximin. And his Objective - Vital Signs Vital signs: Vital Signs Temp 96.2 F L 09/23/19 05:00 Pulse 70 09/23/19 05:00 Resp 16 09/23/19 05:00 BP 106/66 09/23/19 05:00 Pulse Ox 95 09/23/19 05:00 Intake & Output 09/22/19 09/23/19 09/23/19 18:59 06:59 18:59 Intake Total 815 Balance 815 Intake: Intake, IV Titration 225 Amount Dextrose 5%-0.9% NaCl 1, 225 000 ml @ 75 mls/hr IV . [id number] Rx#:[id number] Oral 590 Other: Voiding Method Toilet Toilet # Voids 2 2 - Exam GENERAL: The patient is alert and oriented x3, not in any acute distress. Well developed, well nourished. HEENT: Pupils are round and equally reacting to light. EOMI. No scleral icterus. No conjunctival pallor. Normocephalic, atraumatic. No pharyngeal erythema. No thyromegaly. CARDIOVASCULAR: S1 and S2 present. No murmurs, rubs, or gallops. PULMONARY: Chest is clear to auscultation, no wheezing or crackles. -ABDOMEN: Soft, lower abdominal tenderness with no rebound tenderness, nondistended, normoactive bowel sounds. No palpable organomegaly. MUSCULOSKELETAL: No joint swelling or deformity. EXTREMITIES: No cyanosis, clubbing, or pedal edema. NEUROLOGICAL: Gross neurological examination did not reveal any focal deficits. SKIN: No rashes. No petechiae - Labs CBC & Chem 7: 09/23/19 07:10 09/23/19 07:10 Labs: Abnormal Lab Results - Last 24 Hours (Table) 09/23/19 09/23/19 Range/Units 07:10 07:10 WBC 1.9 L (3.8-10.6) k/uL RBC 3.56 L (4.30-5.90) m/uL Hgb 10.5 L (13.0-17.5) gm/dL Hct 32.0 L (39.0-53.0) % Lymphocytes # 0.2 L (1.0-4.8) k/uL Sodium 135 L (137-145) mmol/L Potassium 3.2 L (3.5-5.1) mmol/L Carbon Dioxide 31 H (22-30) mmol/L Creatinine 0.58 L (0.66-1.25) mg/dL Glucose 113 H (74-99) mg/dL Calcium 8.0 L (8.4-10.2) mg/dL Microbiology - Last 24 Hours (Table) 09/19/19 18:51 Blood Culture - Preliminary Blood No Growth after 72 hours 09/20/19 10:19 Stool Culture - Preliminary Stool Assessment and Plan Assessment: Pancolitis, related to radiation, versus autoimmune, rule out infectious Generalized weakness and tiredness Relative hypotension Right renal cancer with metastasis, on radiation therapy, chemotherapy pending History of Diffuse ulcerations and multiple lesions, EGD, colonoscopy clinically, 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 Labs and medication were reviewed.. Continue same treatment. Continue with symptomatic treatment. Resume home medication. Monitor lytes and vitals. DVT and GI prophylaxis. Further recommendations of the clinical course of the patient DVT prophylaxis: Subcutaneous heparin GI Prophylaxis: Ppi PT/OT: Pending Prognosis is guarded
[2019-09-23] MEDS: DEXTROSE 5%-0.9% NACL 1,000 ML IV SCH ×2 (08:59→16:43)
[2019-09-23] MEDS: PANTOPRAZOLE 40 MG/10 ML VIAL IVP SCH (09:00)
[2019-09-23] MEDS: methylPREDNISolone SOD SUCCI 40 MG/ML 1 ML VIAL IV SCH ×2 (09:00→17:59)
[2019-09-23] MEDS: NYSTATIN 100,000 UNIT/ML SUSP 500,000 UNIT/5 ML CUP PO SCH ×4 (09:01→21:51)
[2019-09-23] MEDS: HEPARIN SODIUM,PORCINE 5,000 UNIT/ML 1 ML VIAL SQ SCH ×2 (09:01→21:51)
[2019-09-23] MEDS: RIFAXIMIN 550 MG TABLET PO SCH ×4 (10:28→21:52)
--- NOTE | 2019-09-23 10:41 | P.PN ---
Subjective Progress Note Date: 09/23/19 CHIEF COMPLAINT: colitis HISTORY OF PRESENT ILLNESS: Patient examined at the bedside. He reports mild abdominal discomfort. He reports diarrhea this morning. He feels very weak and fatigued. PHYSICAL EXAM: VITAL SIGNS: Reviewed. GENERAL: Well-developed in no acute distress. HEENT: No sclera icterus. Extraocular movements grossly intact. Moist buccal mucosa. Head is atraumatic, normocephalic. ABDOMEN: Soft. Nondistended. Mild lower abdominal tenderness. NEUROLOGIC: Alert and oriented. Cranial nerves II through XII grossly intact. ASSESSMENT: 1. Pancolitis PLAN: -Continue IV steroids per GI service -Continue diet as tolerated -Continue supportive measures -No surgical intervention recommended Nurse practitioner note has been reviewed by physician. Signing provider agrees with the documented findings, assessment, and plan of care. Objective - Vital Signs Vital signs: Vital Signs Temp 96.2 F L 09/23/19 05:00 Pulse 70 09/23/19 05:00 Resp 16 09/23/19 05:00 BP 106/66 09/23/19 05:00 Pulse Ox 95 09/23/19 05:00 Intake & Output 09/22/19 09/23/19 09/23/19 18:59 06:59 18:59 Intake Total 815 Balance 815 Weight 53.5 kg Intake: Intake, IV Titration 225 Amount Dextrose 5%-0.9% NaCl 1, 225 000 ml @ 75 mls/hr IV . [id number] [facility] Rx#:[id number] Oral 590 Other: Voiding Method Toilet Toilet # Voids 2 2 - Labs CBC & Chem 7: 09/23/19 07:10 09/23/19 07:10 Labs: Abnormal Lab Results - Last 24 Hours (Table) 09/23/19 09/23/19 Range/Units 07:10 07:10 WBC 1.9 L (3.8-10.6) k/uL RBC 3.56 L (4.30-5.90) m/uL Hgb 10.5 L (13.0-17.5) gm/dL Hct 32.0 L (39.0-53.0) % Lymphocytes # 0.2 L (1.0-4.8) k/uL Sodium 135 L (137-145) mmol/L Potassium 3.2 L (3.5-5.1) mmol/L Carbon Dioxide 31 H (22-30) mmol/L Creatinine 0.58 L (0.66-1.25) mg/dL Glucose 113 H (74-99) mg/dL Calcium 8.0 L (8.4-10.2) mg/dL Microbiology - Last 24 Hours (Table) 09/19/19 18:51 Blood Culture - Preliminary Blood No Growth after 72 hours 09/20/19 10:19 Stool Culture - Preliminary Stool
[2019-09-23] MEDS: THIAMINE 100 MG TAB PO SCH (13:04)
[2019-09-23] MEDS: FLUDROCORTISONE 0.1 MG TAB PO SCH (13:04)
[2019-09-23] MEDS: FOLIC ACID 1 MG TAB PO SCH (13:04)
[2019-09-23] MEDS: LOPERAMIDE 2 MG CAP PO PRN (18:09)
--- NOTE | 2019-09-23 18:29 | P.PN ---
Subjective Progress Note Date: 09/23/19 Principal diagnosis: Colitis, diarrhea Patient reports 5 episodes of loose stool yesterday. Did have Imodium this morning. Feeling somewhat weak. No nausea or vomiting. Objective - Vital Signs Vital signs: Vital Signs Temp 96.2 F L 09/23/19 05:00 Pulse 70 09/23/19 05:00 Resp 16 09/23/19 05:00 BP 106/66 09/23/19 05:00 Pulse Ox 95 09/23/19 05:00 Intake & Output 09/22/19 09/23/19 09/23/19 18:59 06:59 18:59 Intake Total 815 Balance 815 Intake: Intake, IV Titration 225 Amount Dextrose 5%-0.9% NaCl 1, 225 000 ml @ 75 mls/hr IV . [id number] Rx#:[id number] Oral 590 Other: Voiding Method Toilet Toilet # Voids 2 2 - Exam On physical examination, patient appears comfortable in no apparent distress. HEAD: Normocephalic, atraumatic. EYES: No scleral icterus. No conjunctival injection. MOUTH: No lesions, tongue midline. NECK: Trachea midline, no gross abnormalities. ABDOMEN: Soft, thin. Bowel sounds are positive. No organomegaly. No guarding or rigidity. EXTREMITIES: No pedal edema. SKIN: No rashes, no jaundice. NEUROLOGIC: Alert and oriented x3. No focal deficits. - Labs CBC & Chem 7: 09/23/19 07:10 09/23/19 07:10 Labs: Abnormal Lab Results - Last 24 Hours (Table) 09/23/19 09/23/19 Range/Units 07:10 07:10 WBC 1.9 L (3.8-10.6) k/uL RBC 3.56 L (4.30-5.90) m/uL Hgb 10.5 L (13.0-17.5) gm/dL Hct 32.0 L (39.0-53.0) % Lymphocytes # 0.2 L (1.0-4.8) k/uL Sodium 135 L (137-145) mmol/L Potassium 3.2 L (3.5-5.1) mmol/L Carbon Dioxide 31 H (22-30) mmol/L Creatinine 0.58 L (0.66-1.25) mg/dL Glucose 113 H (74-99) mg/dL Calcium 8.0 L (8.4-10.2) mg/dL Microbiology - Last 24 Hours (Table) 09/19/19 18:51 Blood Culture - Preliminary Blood No Growth after 72 hours 09/20/19 10:19 Stool Culture - Preliminary Stool Assessment and Plan (1) Colitis Narrative/Plan: 68-year-old male with a history of renal cell cancer treated with nephrectomy in the with recurrence in 2018 requiring radiation therapy of the right renal bed was subsequently developed symptoms of gas, bloating, distention, abdominal pain, and loose stools after recent admission for similar complaints. Patient currently reporting improvement in symptoms on steroid therapy. He underwent EGD and colonoscopy for evaluation at the clinic in August 2019 with findings of gastritis, nonobstructing Schatzki's ring and hiatal hernia with numerous ulcerations noted throughout the colon and in the terminal ileum. Chronic active inflammation seen on pathology from biopsies of the colon with note from pathologist stating that in addition to inflammatory process medication effect, infection or other etiology cannot be ruled out. Given the correlation of the patient's symptoms with radiation therapy suspect inflammatory changes secondary to radiation. Testing for Clostridium difficile negative and lactoferrin positive. Computed tomography scan redemonstrates pancolitis. Current Visit: Yes Status: Acute Code(s): K52.9 - NONINFECTIVE GASTROENTERITIS AND COLITIS, UNSPECIFIED SNOMED Code(s): 69506865 (2) Diarrhea Current Visit: Yes Status: Acute Code(s): R19.7 - DIARRHEA, UNSPECIFIED SNOMED Code(s): 21792257 Plan: Supportive care Low fiber, low residual diet as tolerated Avoid lactose products Continue to monitor symptoms and stool output Continue IV steroid therapy Rifaximin 550 mg 3 times a day added for possible bacterial overgrowth in the setting of radiation Imodium 1 time dose given and an order for as needed Imodium if symptoms persist Thank you for allowing us to participate in the care of the patient we'll continue to follow
[2019-09-23] MEDS: TAMSULOSIN 0.4 MG CAP.ER.24H PO SCH (21:51)
[2019-09-23] MEDS: ESCITALOPRAM 10 MG TAB PO SCH (21:51)
[2019-09-23] MEDS: POTASSIUM CHLORIDE ER 20 MEQ TAB.ER PO SCH (23:06)
[2019-09-24] MEDS: methylPREDNISolone SOD SUCCI 40 MG/ML 1 ML VIAL IV SCH ×3 (00:05→17:32)
[2019-09-24] MEDS: POTASSIUM CHLORIDE ER 20 MEQ TAB.ER PO SCH ×3 (00:06→22:11)
[2019-09-24] MEDS: DEXTROSE 5%-0.9% NACL 1,000 ML IV SCH ×2 (02:06→12:04)
[2019-09-24] MEDS: ACETAMINOPHEN TAB 325 MG TAB PO PRN ×3 (03:51→16:34)
[2019-09-24 06:40] LABS: Basophils % (A) 0 %; Eosinophils % (A) 0 %; HCT 30.5 % (39.0-53.0); HGB 9.9 gm/dL (13.0-17.5); Lymphocytes # (A) 0.2 k/uL (1.0-4.8); Lymphocytes % (A) 11 %; MCH 29.1 pg (25.0-35.0); MCHC 32.6 g/dL (31.0-37.0); MCV 89.5 fL (80.0-100.0); Mean Platelet Volume 7.5; Monocytes # (A) 0.1 k/uL (0-1.0); Monocytes % (A) 5 %; Neutrophils # (A) 1.8 k/uL (1.3-7.7); Neutrophils % (A) 81 %; Platelet Count 249 k/uL (150-450); RBC 3.41 m/uL (4.30-5.90); RDW 13.7 % (11.5-15.5); WBC 2.2 k/uL (3.8-10.6)
[2019-09-24 06:52] LABS: African American GFR (CKD) >90 (>60 ml/min/1.73 sqM); Anion Gap 5 mmol/L; Blood Urea Nitrogen 14 mg/dL (9-20); Calcium 7.9 mg/dL (8.4-10.2); Carbon Dioxide 30 mmol/L (22-30); Chloride 98 mmol/L (98-107); Glucose 119 mg/dL (74-99); Non-African American GFR(CKD) >90 (>60 ml/min/1.73 sqM); Potassium 3.2 mmol/L (3.5-5.1); Sodium 133 mmol/L (137-145)
--- NOTE | 2019-09-24 09:37 | CDI ---
Documentation Clarification Form Date: 09/24/2019 09:29:51 AM From: Sridevi Quintana RN, CCDS Admit Date: 09/20/2019 03:33:00 PM Patient Name: Martin Younger Visit Number: [id number] ATTENTION: The Clinical Documentation Specialists (CDI) and [facility] Coding Staff appreciate your assistance in clarifying documentation. Please respond to the clarification below the line at the bottom and electronically sign. The CDI & [facility] Coding staff will review the response and follow-up if needed. Please note: Queries are made part of the Legal Health Record. If you have any questions, please contact the author of this message via ITS. Dr. Mulligan E Sheet A diagnosis of normocytic anemia lacks specificity to accurately reflect your patients severity of condition and clarification is needed. 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, severe PCM Clinical indicators: H&P and Progress Notes: "Anemia, normocytic" 09/18-09/23 Hemoglobin: 12.2/9.4/10.2/10.9/10.5/9.9 09/18-09/23 Hematocrit: 37.7/29.7/31.5/33.4/32/30.5 Treatment: Monitoring labs 09/18 2L 0.9% NS IVF Bolus In order to capture the severity of condition, please clarify the type of anemia and etiology if known: Acute blood loss anemia Acute on chronic blood loss anemia Chronic blood loss anemia Iron deficiency anemia Drug induced anemia Anemia due to renal cell cancer with mets Nutritional anemia Anemia of chronic disease Unable to determine Other, please specify (Last Revision: April 2017) Unable to determine MTDD
[2019-09-24] MEDS: LOPERAMIDE 2 MG CAP PO PRN (09:49)
[2019-09-24] MEDS: NYSTATIN 100,000 UNIT/ML SUSP 500,000 UNIT/5 ML CUP PO SCH ×4 (09:50→22:11)
[2019-09-24] MEDS: HEPARIN SODIUM,PORCINE 5,000 UNIT/ML 1 ML VIAL SQ SCH ×2 (09:50→20:41)
[2019-09-24] MEDS: PANTOPRAZOLE 40 MG TABLET PO SCH (09:50)
[2019-09-24] MEDS: FOLIC ACID 1 MG TAB PO SCH (09:50)
[2019-09-24] MEDS: THIAMINE 100 MG TAB PO SCH (09:50)
[2019-09-24 11:56] VITALS: RESP 16
[2019-09-24] MEDS: ONDANSETRON 4 MG/2 ML VIAL IVP PRN ×2 (12:04→20:41)
[2019-09-24] MEDS: FLUDROCORTISONE 0.1 MG TAB PO SCH (12:04)
--- NOTE | 2019-09-24 14:31 | P.PN ---
Subjective Progress Note Date: 09/24/19 CHIEF COMPLAINT: colitis HISTORY OF PRESENT ILLNESS: Patient examined at the bedside. He reports improvement in abdominal pain. He reports diarrhea is slowing down. He reports a couple loose stools this morning. PHYSICAL EXAM: VITAL SIGNS: Reviewed. GENERAL: Well-developed in no acute distress. HEENT: No sclera icterus. Extraocular movements grossly intact. Moist buccal mucosa. Head is atraumatic, normocephalic. ABDOMEN: Soft. Nondistended. Mild lower abdominal tenderness. NEUROLOGIC: Alert and oriented. Cranial nerves II through XII grossly intact. ASSESSMENT: 1. Pancolitis PLAN: -Continue IV steroids per GI service -Continue diet as tolerated -Continue supportive measures -No surgical intervention recommended Nurse practitioner note has been reviewed by physician. Signing provider agrees with the documented findings, assessment, and plan of care. Objective - Vital Signs Vital signs: Vital Signs Temp 98 F 09/24/19 11:55 Pulse 68 09/24/19 11:55 Resp 16 09/24/19 11:55 BP 128/78 09/24/19 11:55 Pulse Ox 96 09/24/19 11:55 Intake & Output 09/23/19 09/24/19 09/24/19 18:59 06:59 18:59 Intake Total 650 Balance 650 Weight 53.5 kg Intake: Intake, IV Titration 650 Amount Dextrose 5%-0.9% NaCl 1, 650 000 ml @ 75 mls/hr IV . [id number] [facility] Rx#:[id number] Other: Voiding Method Toilet # Voids 3 3 # Bowel Movements 3 1 - Labs CBC & Chem 7: 09/24/19 06:18 09/24/19 06:18 Labs: Abnormal Lab Results - Last 24 Hours (Table) 09/24/19 09/24/19 Range/Units 06:18 06:18 WBC 2.2 L (3.8-10.6) k/uL RBC 3.41 L (4.30-5.90) m/uL Hgb 9.9 L (13.0-17.5) gm/dL Hct 30.5 L (39.0-53.0) % Lymphocytes # 0.2 L (1.0-4.8) k/uL Sodium 133 L (137-145) mmol/L Potassium 3.2 L (3.5-5.1) mmol/L Creatinine 0.55 L (0.66-1.25) mg/dL Glucose 119 H (74-99) mg/dL Calcium 7.9 L (8.4-10.2) mg/dL Microbiology - Last 24 Hours (Table) 09/20/19 10:19 Stool Culture - Final Stool 09/19/19 18:51 Blood Culture - Preliminary Blood No Growth after 96 hours
--- NOTE | 2019-09-24 14:38 | P.PN ---
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 and RCC with metastases, anemia, hyponatremia, multiple apparently, hypoalbuminemia, severe protein calorie malnutrition Patient states that he has history of right renal cell carcinoma in 1996, next year they found metastases to the lung, at that time he was treated with chemotherapy and radiotherapy, he was getting regular checkup last May when found to have recurrence of his right renal cancer on the same spot found on CAT scan of the abdomen so he got 5 days of radiotherapy on May, after radiotherapy patient was started getting sick with abdominal Pain However the Diarrhea Did Not Start until July 2019, This Is the Fourth Time His Been Admitted to the Hospital with the Same Diagnosis of Abdominal Pain of Diarrhea, One at [place], One I [place] and 1 at [facility] and This Is the Second Time. Patient currently complaining of from lower abdominal pain, mild to moderate, is appreciated with loose bowel movement about 6 times per day, brown with no blood, has some nausea with decreased appetite but no vomiting. No other complaints no chest pain or dyspnea or fever or coughing. Patient states he had colonoscopy/EGD and [place] clinic about 3 weeks ago Vitals his stable and patient is afebrile. Left shoulder C of 2.8K, hemoglobin 12.2, platelets 279, INR 1.1, platelet colitis of sodium presets jump and creatinine are within normal limits, mildly elevated carbon dioxide at 37. Urinalysis is not suspicious of infection, C. diff is negative. EKG showing normal sinus rhythm at 80 with QTC of 431, no significant ST T changes, Chest x- ray: No acute process, minimal left-sided pleural reaction is the same or improved compared to last exam. On admission was started on D5 half-normal saline, Zofran, Protonix and normal saline fluids. 09/21/2019 She still feeling weak, this fully awake and oriented, he still had diarrhea yesterday and he has to loose bowel movement this morning but they are slightly improving as per patient. No abdominal pain only with bowel movement with ferritin about 4/10. No nausea vomiting and tolerating diet well. CAT scan of the abdomen and pelvis showing pancolitis and he was a started on solid Medrol 20 mg every 8 hours and rifaximin for possible bacterial overgrowth, discussed the case with GI team most likely is related to his radiation therapy. Stool culture is still pending however C. diff is negative. Still left a foreign is positive. He remains on normal saline and close monitoring of his blood pressure. Labs show WBC of 2.6, hemoglobin stable 10.2, electrolytes are better and with an normal potassium was slightly low sodium at 136, creatinine normal. I discussed the case with oncology team, no need for consult at this time as there is no need for chemoradiation therapy until his colitis improve, patient can follow-up as an outpatient with his oncologist at [place]. Oncology consult was canceled 09/22/2019 Patient is awake and alert, resting comfortably in bed with some abdominal pain. Last night had dropped night as he states with more severe lower abdominal pain similar to the pain he came in with, it was up to 7-8/10 in severity, coming down to 2/10 this morning, patient feels bloated however his abdomen is still distended, he had 2 loose bowel movement yesterday, none since this morning. No nausea vomiting and is tolerating diet well. No other new complaints Other than that his vitals looks stable. WBC is slightly trending up to 3.2 KG, hemoglobin 10.9, sodium 136. Glucose is 129 patient remains on D5 normal saline at 75 mL/h, Solu-Medrol 20 mg every 8 hours and Keflex and mean. We are going to order abdominal x-ray today 09/23/2019 Patient is awake and alert, however he feels weak, he had 5 bowel movements of diarrhea since yesterday, and also he has some lower abdominal pain but no nausea vomiting, he has low a per protocol ppetite this morning but he will try to eat. Labs showing WBC of 1.9, hemoglobin 10.5, sodium 135, potassium 3.2 which is going to be replaced. Vitals are stable, blood pressure 106/66 his medication including Solu-Medrol 20 mg IV, D5 normal sinus 75 and rifaximin. 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 Patient's IV fluids are being increased to 1 25 mL normal saline patient is hyponatremic because of diarrhea. Constitutional: Denied any fatigue denied any fever. Cardio vascular: denied any chest pain, palpitations Gastrointestinal denied any nausea vomiting Pulmonary: Denied any shortness of breath cough Neurologic denied any new focal deficits All inpatient medications were reviewed and appropriate changes in these medications as dictated in the interval history and assessment and plan. Objective - Vital Signs Vital signs: Vital Signs Temp 98 F 09/24/19 11:55 Pulse 68 09/24/19 11:55 Resp 16 09/24/19 11:55 BP 128/78 09/24/19 11:55 Pulse Ox 96 09/24/19 11:55 Intake & Output 09/23/19 09/24/19 09/24/19 18:59 06:59 18:59 Intake Total 650 1050 Balance 650 1050 Weight 53.5 kg Intake: Intake, IV Titration 650 800 Amount Dextrose 5%-0.9% NaCl 1, 650 000 ml @ 75 mls/hr IV . [id number] [facility] Rx#:[id number] Sodium Chloride 0.9% 1, 800 000 ml @ 130 mls/hr IV . [id number] [facility] Rx#:[id number] Oral 250 Other: Voiding Method Toilet # Voids 3 3 2 # Bowel Movements 3 1 2 - Exam GENERAL: The patient is alert and oriented x3, not in any acute distress. Well developed, well nourished. HEENT: Pupils are round and equally reacting to light. EOMI. No scleral icterus. No conjunctival pallor. Normocephalic, atraumatic. No pharyngeal erythema. No thyromegaly. CARDIOVASCULAR: S1 and S2 present. No murmurs, rubs, or gallops. PULMONARY: Chest is clear to auscultation, no wheezing or crackles. -ABDOMEN: Soft, lower abdominal tenderness with no rebound tenderness, nondi stended, normoactive bowel sounds. No palpable organomegaly. MUSCULOSKELETAL: No joint swelling or deformity. EXTREMITIES: No cyanosis, clubbing, or pedal edema. NEUROLOGICAL: Gross neurological examination did not reveal any focal deficits. SKIN: No rashes. No petechiae - Labs CBC & Chem 7: 09/24/19 06:18 09/24/19 06:18 Labs: Abnormal Lab Results - Last 24 Hours (Table) 09/24/19 09/24/19 Range/Units 06:18 06:18 WBC 2.2 L (3.8-10.6) k/uL RBC 3.41 L (4.30-5.90) m/uL Hgb 9.9 L (13.0-17.5) gm/dL Hct 30.5 L (39.0-53.0) % Lymphocytes # 0.2 L (1.0-4.8) k/uL Sodium 133 L (137-145) mmol/L Potassium 3.2 L (3.5-5.1) mmol/L Creatinine 0.55 L (0.66-1.25) mg/dL Glucose 119 H (74-99) mg/dL Calcium 7.9 L (8.4-10.2) mg/dL Microbiology - Last 24 Hours (Table) 09/20/19 10:19 Stool Culture - Final Stool 09/19/19 18:51 Blood Culture - Preliminary Blood No Growth after 96 hours Assessment and Plan Plan: Pancolitis, related to radiation, versus autoimmune, rule out infectious use to have diarrhea continue with the antiarrhythmic medications -Hypovolemic hyponatremia I'm increasing the IV fluids 1 25 mL/h, repeat basic metabolic profile tomorrow Generalized weakness and tiredness Relative hypotension Right renal cancer with metastasis, on radiation therapy, chemotherapy pending History of Diffuse ulcerations and multiple lesions, EGD, colonoscopy clinically, 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
--- NOTE | 2019-09-24 17:25 | P.PN ---
Subjective Progress Note Date: 09/24/19 Principal diagnosis: Colitis, diarrhea Patient again reporting some loose bowel movements overnight and again did not ask for any antidiarrheals which are ordered as needed. Long discussion with the patient on the need to request medications when he is symptomatic. Objective - Vital Signs Vital signs: Vital Signs Temp 97.7 F 09/24/19 05:00 Pulse 78 09/24/19 05:00 Resp 18 09/24/19 05:00 BP 121/75 09/24/19 05:00 Pulse Ox 96 09/24/19 05:00 Intake & Output 09/23/19 09/24/19 09/24/19 18:59 06:59 18:59 Intake Total 650 Balance 650 Weight 53.5 kg Intake: Intake, IV Titration 650 Amount Dextrose 5%-0.9% NaCl 1, 650 000 ml @ 75 mls/hr IV . [id number] [facility] Rx#:[id number] Other: Voiding Method Toilet # Voids 3 3 # Bowel Movements 3 1 - Exam On physical examination, patient appears comfortable in no apparent distress. HEAD: Normocephalic, atraumatic. EYES: No scleral icterus. No conjunctival injection. MOUTH: No lesions, tongue midline. NECK: Trachea midline, no gross abnormalities. ABDOMEN: Soft, thin. Bowel sounds are positive. No organomegaly. No guarding or rigidity. EXTREMITIES: No pedal edema. SKIN: No rashes, no jaundice. NEUROLOGIC: Alert and oriented x3. No focal deficits. - Labs CBC & Chem 7: 09/24/19 06:18 09/24/19 06:18 Labs: Abnormal Lab Results - Last 24 Hours (Table) 09/24/19 09/24/19 Range/Units 06:18 06:18 WBC 2.2 L (3.8-10.6) k/uL RBC 3.41 L (4.30-5.90) m/uL Hgb 9.9 L (13.0-17.5) gm/dL Hct 30.5 L (39.0-53.0) % Lymphocytes # 0.2 L (1.0-4.8) k/uL Sodium 133 L (137-145) mmol/L Potassium 3.2 L (3.5-5.1) mmol/L Creatinine 0.55 L (0.66-1.25) mg/dL Glucose 119 H (74-99) mg/dL Calcium 7.9 L (8.4-10.2) mg/dL Microbiology - Last 24 Hours (Table) 09/19/19 18:51 Blood Culture - Preliminary Blood No Growth after 96 hours 09/20/19 10:19 Stool Culture - Final Stool Assessment and Plan (1) Colitis Narrative/Plan: 68-year-old male with a history of renal cell cancer treated with nephrectomy in the with recurrence in 2018 requiring radiation therapy of the right renal bed was subsequently developed symptoms of gas, bloating, distention, abdominal pain, and loose stools after recent admission for similar complaints. Patient currently reporting improvement in symptoms on steroid therapy. He underwent EGD and colonoscopy for evaluation at the clinic in August 2019 with findings of gastritis, nonobstructing Schatzki's ring and hiatal hernia with numerous ulcerations noted throughout the colon and in the terminal ileum. Chronic active inflammation seen on pathology from biopsies of the colon with note from pathologist stating that in addition to inflammatory process medication effect, infection or other etiology cannot be ruled out. Given the correlation of the patient's symptoms with radiation therapy suspect inflammatory changes secondary to radiation. Testing for Clostridium difficile negative and lactoferrin positive. Computed tomography scan redemonstrates pancolitis. Current Visit: Yes Status: Acute Code(s): K52.9 - NONINFECTIVE GASTROENTERITIS AND COLITIS, UNSPECIFIED SNOMED Code(s): 83039421 (2) Diarrhea Current Visit: Yes Status: Acute Code(s): R19.7 - DIARRHEA, UNSPECIFIED SNOMED Code(s): 46961953 Plan: Supportive care Low fiber, low residual diet as tolerated Avoid lactose products Continue to monitor symptoms and stool output Continue IV steroid therapy Rifaximin 550 mg 3 times a day added for possible bacterial overgrowth in the setting of radiation Imodium as needed for loose stool Thank you for allowing us to participate in the care of the patient we'll continue to follow
[2019-09-24] MEDS: RIFAXIMIN 550 MG TABLET PO SCH ×2 (17:32→22:11)
[2019-09-24] MEDS: SODIUM CHLORIDE 0.9% 1,000 ML IV SCH ×2 (17:34→22:28)
[2019-09-24] MEDS ORDERED: DIPHENOX-ATROP 2.5-0.025 MG 1 EACH TAB PO PRN (19:45)
[2019-09-24 20:29] LABS: ALT 12 U/L (4-49); AST 12 U/L (17-59); African American GFR (CKD) >90 (>60 ml/min/1.73 sqM); Albumin 2.2 g/dL (3.5-5.0); Alkaline Phosphatase 39 U/L (38-126); Anion Gap 4 mmol/L; Blood Urea Nitrogen 14 mg/dL (9-20); Calcium 7.7 mg/dL (8.4-10.2); Carbon Dioxide 32 mmol/L (22-30); Chloride 97 mmol/L (98-107); Glucose 205 mg/dL (74-99); LDH <150 U/L (313-618); Non-African American GFR(CKD) >90 (>60 ml/min/1.73 sqM); Potassium 3.1 mmol/L (3.5-5.1); Sodium 133 mmol/L (137-145); Total Bilirubin 0.4 mg/dL (0.2-1.3); Total Protein 4.5 g/dL (6.3-8.2)
[2019-09-24] MEDS: ESCITALOPRAM 10 MG TAB PO SCH (20:40)
[2019-09-24] MEDS: CHOLESTYRAMINE (WITH SUGAR) 4 GM PACKET PO SCH (20:40)
[2019-09-24] MEDS: TAMSULOSIN 0.4 MG CAP.ER.24H PO SCH (20:41)
[2019-09-25 01:20] LABS: Reticulocyte % 0.91 % (0.10-1.80)
[2019-09-25] MEDS: POTASSIUM CHLORIDE ER 20 MEQ TAB.ER PO SCH ×2 (01:28)
[2019-09-25] MEDS: LOPERAMIDE 2 MG CAP PO PRN ×3 (01:30→15:33)
[2019-09-25] MEDS: ACETAMINOPHEN TAB 325 MG TAB PO PRN ×3 (01:55→16:09)
[2019-09-25 01:57] LABS: % Iron Saturation 15.17 (15.00-50.00); Iron 27 ug/dL (65-175); Rheumatoid Factor, Qnt 12 IU/mL (0-15); Total Iron Binding Capacity 178 ug/dL (228-460)
[2019-09-25 02:05] LABS: Ferritin 789.5 ng/mL (22.0-322.0)
[2019-09-25 02:32] LABS: Protein, Total 4.1 g/dL (6.2-8.2)
[2019-09-25] MEDS: SODIUM CHLORIDE 0.9% 1,000 ML IV SCH ×2 (04:45→15:34)
[2019-09-25 07:53] LABS: Basophils % (A) 0 %; Eosinophils % (A) 0 %; HCT 31.4 % (39.0-53.0); HGB 10.2 gm/dL (13.0-17.5); Lymphocytes # (A) 0.2 k/uL (1.0-4.8); Lymphocytes % (A) 7 %; MCH 29.3 pg (25.0-35.0); MCHC 32.5 g/dL (31.0-37.0); MCV 90.3 fL (80.0-100.0); Mean Platelet Volume 7.6; Monocytes # (A) 0.1 k/uL (0-1.0); Monocytes % (A) 4 %; Neutrophils # (A) 2.1 k/uL (1.3-7.7); Neutrophils % (A) 87 %; Platelet Count 234 k/uL (150-450); RBC 3.48 m/uL (4.30-5.90); RDW 13.9 % (11.5-15.5); WBC 2.4 k/uL (3.8-10.6)
[2019-09-25 08:07] LABS: African American GFR (CKD) >90 (>60 ml/min/1.73 sqM); Anion Gap 3 mmol/L; Blood Urea Nitrogen 13 mg/dL (9-20); Calcium 7.9 mg/dL (8.4-10.2); Carbon Dioxide 30 mmol/L (22-30); Chloride 101 mmol/L (98-107); Glucose 105 mg/dL (74-99); Non-African American GFR(CKD) >90 (>60 ml/min/1.73 sqM); Potassium 3.7 mmol/L (3.5-5.1); Sodium 134 mmol/L (137-145)
[2019-09-25] MEDS: PANTOPRAZOLE 40 MG TABLET PO SCH (08:30)
[2019-09-25] MEDS: methylPREDNISolone SOD SUCCI 40 MG/ML 1 ML VIAL IV SCH ×2 (08:30)
[2019-09-25] MEDS: CHOLESTYRAMINE (WITH SUGAR) 4 GM PACKET PO SCH ×2 (08:30→12:10)
[2019-09-25] MEDS: RIFAXIMIN 550 MG TABLET PO SCH (08:32)
[2019-09-25] MEDS: HEPARIN SODIUM,PORCINE 5,000 UNIT/ML 1 ML VIAL SQ SCH (08:32)
[2019-09-25] MEDS: NYSTATIN 100,000 UNIT/ML SUSP 500,000 UNIT/5 ML CUP PO SCH ×2 (08:32→12:10)
[2019-09-25] MEDS: ONDANSETRON 4 MG/2 ML VIAL IVP PRN (08:42)
--- NOTE | 2019-09-25 10:06 | P.CONS ---
History of Present Illness - Reason for Consult Consult date: 09/24/19 Hx: RCC Requesting physician: Sarina Olivier - Chief Complaint Diarrhea, Weakness - History of Present Illness The patient is a 68-year-old white male with a complicated past medical history. The patient was diagnosed with right-sided renal cell cancer in the . He was treated with nephrectomy. Per the patient he developed recurrence in the lungs, apparently in 2018. He states that this was an isolated recurrence and was treated with resection at the [facility] in 01/2019. He then developed recurrence in the right renal bed and states that he received radiation. Since late 05/2019, the patient developed problems with abdominal pains, exacerbated by eating. He also had associated bloating, and gas. As a result his oral intake declined significantly and he started to lose weight. He has lost about 20+ pounds since radiation. He had gone to [facility] and was admitted for these similiar complaints. He states that he had imaging done in 08/22 and was told that this was negative. He had been following up at the [facility] regarding his recurrent renal cell cancer. He was admitted therefore persistent complains and states that on review of his imaging there he was told that there appeared to be recurrence in the lung and possibly the right renal bed. In mid 08/22, he had EGD and colonoscopy revealing significant erythema and inflammation in the upper GI, as well as diffuse inflammation with scattered ulceration throughout the colon. He states the biopsies were negative and at this time he has not been told a definite etiology. Over the past month he has been re-admitted for these continued complaints, He came into the hospital this admission again because of persistent weakness, decreased appetite and failure to thrive. He was admitted for further management. We were asked to see patient in early August on his first admission with similar complaint, at that time he stated he would follow-up with his on cology team at [facility]. We had therefore signed off. This admission he asked to see us regarding managment of his possible recurrent RCC closer to home. Review of Systems A 14 point review of systems assessed and completed and all negative except HPI Past Medical History Past Medical History: Cancer, Renal Disease Additional Past Medical History / Comment(s): Right renal CA(Radiation at [facility]... last dose in May of 2019), Lung ca History of Any Multi-Drug Resistant Organisms: None Reported Past Surgical History: Appendectomy, Orthopedic Surgery Additional Past Surgical History / Comment(s): right kidney: partial kidney removed, Bilateral shoulder, section of lung removed (December of 2018) Past Psychological History: No Psychological Hx Reported Smoking Status: Never smoker Past Alcohol Use History: None Reported Past Drug Use History: None Reported - Past Family History Father Family Medical History: No Reported History Medications and Allergies Home Medications Medication Instructions Recorded Confirmed Type Pantoprazole Sodium [Protonix] 40 mg PO AC-BID 09/05/19 09/19/19 History Tamsulosin HCl [Flomax] 0.4 mg PO HS 09/05/19 09/19/19 History Escitalopram [Lexapro] 10 mg PO HS 30 Days #30 tab 09/12/19 09/19/19 Rx Folic Acid 1 mg PO DAILY@1200 30 Days #30 tab 09/12/19 09/19/19 Rx Nystatin 100,000 Unit/ml Susp 500,000 unit PO QID #120 ml 09/12/19 09/19/19 Rx [Mycostatin Oral Susp] Prochlorperazine [Compazine] 5 mg PO Q12HR PRN #20 tab 09/12/19 09/19/19 Rx Thiamine [Vitamin B-1] 100 mg PO DAILY@1200 30 Days #30 09/12/19 09/19/19 Rx tab Acetaminophen Tab [Tylenol] 325 mg PO Q4H 09/19/19 09/19/19 History Fludrocortisone [Florinef] 0.2 mg PO DAILY@1200 09/19/19 09/19/19 History predniSONE See Taper PO DAILY 09/19/19 09/19/19 History Allergies Allergy/AdvReac Type Severity Reaction Status Date / Time No Known Allergies Allergy Verified 09/19/19 20:33 Physical Exam Vitals: Vital Signs Temp Pulse Resp BP Pulse Ox 09/24/19 11:55 98 F 68 16 128/78 96 09/24/19 05:00 97.7 F 78 18 121/75 96 09/23/19 20:23 97.6 F 69 16 122/75 96 Intake and Output 09/24/19 09/24/19 09/24/19 06:59 14:59 22:59 Intake Total 1050 Balance 1050 Intake: Intake, IV Titration 800 Amount Sodium Chloride 0.9% 1, 800 000 ml @ 130 mls/hr IV . Q7H42M [facility] Rx#:[id number] Oral 250 Other: # Voids 3 2 # Bowel Movements 1 2 - Constitutional General appearance: no acute distress - EENT Eyes: EOMI, PERRLA ENT: hearing grossly normal, normal oropharynx - Neck Neck: no lymphadenopathy Thyroid: bilateral: normal size - Respiratory Respiratory: bilateral: CTA - Cardiovascular Rhythm: regular Heart sounds: normal: S1, S2 - Gastrointestinal General gastrointestinal: normal bowel sounds, soft Localized gastrointestinal: tender: RLQ, LLQ - Integumentary Integumentary: normal - Neurologic Neurologic: CNII-XII intact - Musculoskeletal Musculoskeletal: generalized weakness, strength equal bilaterally - Psychiatric Psychiatric: A&O x's 3, appropriate affect Results CBC & Chem 7: 09/25/19 07:11 09/25/19 07:11 Labs: Abnormal Lab Results - Last 24 Hours (Table) 09/24/19 09/24/19 Range/Units 06:18 06:18 WBC 2.2 L (3.8-10.6) k/uL RBC 3.41 L (4.30-5.90) m/uL Hgb 9.9 L (13.0-17.5) gm/dL Hct 30.5 L (39.0-53.0) % Lymphocytes # 0.2 L (1.0-4.8) k/uL Sodium 133 L (137-145) mmol/L Potassium 3.2 L (3.5-5.1) mmol/L Creatinine 0.55 L (0.66-1.25) mg/dL Glucose 119 H (74-99) mg/dL Calcium 7.9 L (8.4-10.2) mg/dL Microbiology - Last 24 Hours (Table) 09/20/19 10:19 Stool Culture - Final Stool 09/19/19 18:51 Blood Culture - Preliminary Blood No Growth after 96 hours Assessment and Plan Plan: Comments: EGD and colonoscopy op report, images, reviewed ( [facility]) CT scan - abdomen: report reviewed CT scan - chest: report reviewed CT scan - pelvis: report reviewed Assessment and Plan Mild Leukopenia, Normocytic Anemia: - Most likely from extensive GI inflammation: - Monitor and transfuse hemoglobin less than 7 Failure to thrive in adult: - He appears to have progressively worsened over the past 6 months (May 2019) - He was suppose to folow-up with [facility] this month but unfortunately with re-admissions he has not been able to recover as he is still having persistent diarrhea. - EGD and colonoscopy report reviewed and summarized in the HPI. - Biopsies were negative for malignancy, but exact etiology is not known at this time. - At this time it is difficult to attribute this to recurrent malignancy. His CT scans from [facility] were obtained from EMR and reviewed. They did not show any evident recurrent malignancy. - He states that on review at [facility] he was told that there were some lesions in the lung. However according to the available description, even if there is recurrent disease the borderline would appear to be quite low, and unlikely to cause major symptoms at this time. Renal cell cancer - He is currently not a candidate for systemic treatment at this time if he does in fact have a proven recurrence. He will need improvement in overall performance and diarrhea. Colitis The patient's recent CT scans, as well as endoscopies revealed fairly extensive GI inflammation, with jose scattered ulcers in the colon. Etiology of this is not known. However this appears to be likely the reason for his decreased appetite, weight loss and failure to thrive. Apparently biopsies were negative for infection or malignancy. An autoimmune etiology is a possibility. It was confirmed with the patient that he has a follow-up at [facility] later this month. - have ordered further work-up and asked for records from [facility] Plan: At this time supportive measures would be recommended. Addition of questran and lomotil defer to the Admitting service for management of his other medical problems
[2019-09-25 11:23] VITALS: BP 130/86; PULSE 81; TEMP 97.9
[2019-09-25] MEDS: FLUDROCORTISONE 0.1 MG TAB PO SCH (12:09)
[2019-09-25] MEDS: FOLIC ACID 1 MG TAB PO SCH (12:10)
[2019-09-25] MEDS: THIAMINE 100 MG TAB PO SCH (12:10)
--- NOTE | 2019-09-25 13:24 | P.PN ---
Subjective Progress Note Date: 09/25/19 Principal diagnosis: Diarrhea, FTT Patient is still weak Objective - Vital Signs Vital signs: Vital Signs Temp 97.9 F 09/25/19 11:23 Pulse 81 09/25/19 11:23 Resp 16 09/25/19 11:23 BP 130/86 09/25/19 11:23 Pulse Ox 97 09/25/19 11:23 Intake & Output 09/24/19 09/25/19 09/25/19 18:59 06:59 18:59 Intake Total 1050 1560 Output Total 2 2 Balance 1050 1558 -2 Intake: Intake, IV Titration 800 1560 Amount Sodium Chloride 0.9% 1, 800 1560 000 ml @ 130 mls/hr IV . Q7H42M [facility] Rx#:[id number] Oral 250 Output: Stool 2 2 Other: Voiding Method Toilet Toilet # Voids 2 2 # Bowel Movements 2 0 - Exam - Constitutional General appearance: no acute distress - EENT Eyes: EOMI, PERRLA ENT: hearing grossly normal, normal oropharynx - Neck Neck: no lymphadenopathy Thyroid: bilateral: normal size - Respiratory Respiratory: bilateral: CTA - Cardiovascular Rhythm: regular Heart sounds: normal: S1, S2 - Gastrointestinal General gastrointestinal: normal bowel sounds, soft Localized gastrointestinal: tender: RLQ, LLQ - Integumentary Integumentary: normal - Neurologic Neurologic: CNII-XII intact - Musculoskeletal Musculoskeletal: generalized weakness, strength equal bilaterally - Psychiatric Psychiatric: A&O x's 3, appropriate affect - Labs CBC & Chem 7: 09/25/19 07:11 09/25/19 07:11 Labs: Abnormal Lab Results - Last 24 Hours (Table) 09/24/19 09/24/19 09/24/19 Range/Units 20:04 20:04 23:22 WBC (3.8-10.6) k/uL RBC (4.30-5.90) m/uL Hgb (13.0-17.5) gm/dL Hct (39.0-53.0) % Lymphocytes # (1.0-4.8) k/uL Sodium 133 L (137-145) mmol/L Potassium 3.1 L 3.3 L (3.5-5.1) mmol/L Chloride 97 L (98-107) mmol/L Carbon Dioxide 32 H (22-30) mmol/L Creatinine 0.52 L (0.66-1.25) mg/dL Glucose 205 H (74-99) mg/dL Calcium 7.7 L (8.4-10.2) mg/dL Iron 27 L (65-175) ug/dL TIBC 178 L (228-460) ug/dL Ferritin 789.5 H (22.0-322.0) ng/mL AST 12 L (17-59) U/L Lactate Dehydrogenase <150 L (313-618) U/L Total Protein 4.5 L (6.3-8.2) g/dL Total Protein (PEP) 4.1 L (6.2-8.2) g/dL Albumin 2.2 L (3.5-5.0) g/dL 09/25/19 09/25/19 Range/Units 07:11 07:11 WBC 2.4 L (3.8-10.6) k/uL RBC 3.48 L (4.30-5.90) m/uL Hgb 10.2 L (13.0-17.5) gm/dL Hct 31.4 L (39.0-53.0) % Lymphocytes # 0.2 L (1.0-4.8) k/uL Sodium 134 L (137-145) mmol/L Potassium (3.5-5.1) mmol/L Chloride (98-107) mmol/L Carbon Dioxide (22-30) mmol/L Creatinine 0.46 L (0.66-1.25) mg/dL Glucose 105 H (74-99) mg/dL Calcium 7.9 L (8.4-10.2) mg/dL Iron (65-175) ug/dL TIBC (228-460) ug/dL Ferritin (22.0-322.0) ng/mL AST (17-59) U/L Lactate Dehydrogenase (313-618) U/L Total Protein (6.3-8.2) g/dL Total Protein (PEP) (6.2-8.2) g/dL Albumin (3.5-5.0) g/dL Microbiology - Last 24 Hours (Table) 09/19/19 18:51 Blood Culture - Preliminary Blood No Growth after 120 hours 09/20/19 10:19 Stool Culture - Final Stool Assessment and Plan Plan: Comments: EGD and colonoscopy op report, images, reviewed ( [facility]) CT scan - abdomen: report reviewed CT scan - chest: report reviewed CT scan - pelvis: report reviewed Assessment and Plan Mild Leukopenia, Normocytic Anemia: - Most likely from extensive GI inflammation: - Monitor and transfuse hemoglobin less than 7 - Ferritin over 700, no indication for iron at this time. Failure to thrive in adult: - He appears to have progressively worsened over the past 6 months (May 2019) - He was suppose to folow-up with [facility] this month but unfortunately with re-admissions he has not been able to recover as he is still having persistent diarrhea. - EGD and colonoscopy report reviewed and summarized in the HPI. - Biopsies were negative for malignancy, but exact etiology is not known at this time. - At this time it is difficult to attribute this to recurrent malignancy. His CT scans from [facility] were obtained from EMR and reviewed. They did not show any evident recurrent malignancy. - He states that on review at [facility] he was told that there were some lesions in the lung. However according to the available description, even if there is recurrent disease the borderline would appear to be quite low, and unlikely to cause major symptoms at this time. Renal cell cancer - He is currently not a candidate for systemic treatment at this time if he figueroa s in fact have a proven recurrence. He will need improvement in overall performance and diarrhea. Colitis/persistent diarrhea - appears to be improving today, continue questran The patient's recent CT scans, as well as endoscopies revealed fairly extensive GI inflammation, with jose scattered ulcers in the colon. Etiology of this is not known. However this appears to be likely the reason for his decreased appetite, weight loss and failure to thrive. Apparently biopsies were negative for infection or malignancy. An autoimmune etiology is a possibility. It was confirmed with the patient that he has a follow-up at [facility] later this month. - have ordered further work-up and asked for records from [facility] Plan: At this time supportive measures would be recommended. No plans for treatment at this time, will recommend restaging exams such as PET scan as outpatient after discharge to confirm metastatic recurrence. His performance and recurrent hospitalizations at this time would make him not a candidate to initiate any systemic treatment until performance improved. He can follow-up with us after discharge and likely rehab if he chooses to find oncologist closer to home. We are still awaiting [place] [facility] records. defer to the Admitting service for management of his other medical problems Physician Attestation: I have performed the full physical examination and reviewed the full history of this patient, as well as pertinent findings. I have created the compled impression and recommendations. I agree with the above dictation by HAWK Scales. This dictation has been written as a scribe.
[2019-09-25 14:45] LABS: Free Kappa Lt Chain Qnt, Serum 1.32 mg/dL (0.33-1.94)
--- NOTE | 2019-09-25 15:02 | P.DS ---
Providers Date of admission: 09/20/19 15:33 Expected date of discharge: 09/25/19 Attending physician: Rashi Cain Consults: 09/19/19 22:01 Consult Physician Routine Consulting Provider: Acosta Cooper Consult Reason/Comments: diarrhea, recently evaluated Do you want consulting provider notified?: Yes 09/20/19 12:38 Consult Physician Urgent Consulting Provider: [place] Consult Reason/Comments: pancolitis Do you want consulting provider notified?: Yes 09/24/19 12:01 Consult Physician Routine Consulting Provider: Jim Dykes Consult Reason/Comments: RCC with metastasis Do you want consulting provider notified?: Yes Primary care physician: [facility] Course: Final diagnosis -Pancolitis, related to radiation, versus autoimmune, ruled out infectious cause -Hypovolemic hyponatremia -Generalized weakness and tiredness -Relative hypotension -Right renal cancer with metastasis, on radiation therapy, chemotherapy pending -History of Diffuse ulcerations and multiple lesions, EGD, colonoscopy clinically, 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 Patient will also need to follow-up [facility] in the outpatient setting. Patient will continue on prednisone as discussed and ordered with GI and also Imodium and/or Lomotil as needed if diarrhea persists. Total time taken is 35 minutes. History of present illness This is a 68-year-old male who was recently admitted with abdominal pain, diarrhea, decreased appetite with weakness and was being closely monitored. Patient was seen and evaluated by GI along with oncology recommending continued follow-up with the [facility] as he did not do on September 19 and came here instead. Patient's diarrhea has resolved and is tolerating diet. Mild hyponatremia noted but current sodium today is 134 with a potassium 3.7. Patient will need repeat labs in a few days to monitor electrolytes closely. Patient will continue with home care in the outpatient setting as case management states this is been arranged through the OR. Currently no reports of chest pain, shortness of breath, or palpitations. Patient is afebrile. No reports of nausea or vomiting and patient is tolerating diet. Patient will be discharged today. On exam vital signs are stable. Temp is 97.9F, pulse is 81, respirations are 16, blood pressure is 130/86, oxygen saturation is 97% on room air. Cardio S1, S2 are present. Respiratory shows diminished breath sounds with no wheezing or rhonchi noted. Abdomen is soft, thin, and nontender. Nervous system shows no focal deficits. Please refer to medication reconciliation sheet for a list of medications. Patient Condition at Discharge: Fair Plan - Discharge Summary Discharge Rx Participant: Yes New Discharge Prescriptions: New Loperamide [Imodium] 2 mg PO QID PRN #30 cap PRN Reason: Diarrhea Diphenox-Atrop 2.5-0.025 mg [Lomotil] 1 each PO Q6HR PRN #12 tab PRN Reason: Diarrhea Cholestyramine (with Sugar) [Questran Packet] 4 gm PO ACHS #60 packet Ondansetron Odt [Zofran Odt] 4 mg PO Q8HR PRN #12 tab PRN Reason: Nausea Acetaminophen Tab [Tylenol Tab] 500 mg PO Q6H PRN #30 tablet PRN Reason: Pain Continue Tamsulosin HCl [Flomax] 0.4 mg PO HS Prochlorperazine [Compazine] 5 mg PO Q12HR PRN #20 tab PRN Reason: Nausea And Vomiting Folic Acid 1 mg PO DAILY@1200 30 Days #30 tab Escitalopram [Lexapro] 10 mg PO HS 30 Days #30 tab Thiamine [Vitamin B-1] 100 mg PO DAILY@1200 30 Days #30 tab Acetaminophen Tab [Tylenol] 325 mg PO Q4H Fludrocortisone [Florinef] 0.2 mg PO DAILY@1200 predniSONE See Taper PO DAILY Nystatin 100,000 Unit/ml Susp [Mycostatin Oral Susp] 500,000 unit PO QID #240 ml Changed Pantoprazole Sodium [Protonix] 40 mg PO DAILY #0 Discharge Medication List Tamsulosin HCl [Flomax] 0.4 mg PO HS 09/05/19 [History] Escitalopram [Lexapro] 10 mg PO HS 30 Days #30 tab 09/12/19 [Rx] Folic Acid 1 mg PO DAILY@1200 30 Days #30 tab 09/12/19 [Rx] Prochlorperazine [Compazine] 5 mg PO Q12HR PRN #20 tab 09/12/19 [Rx] Thiamine [Vitamin B-1] 100 mg PO DAILY@1200 30 Days #30 tab 09/12/19 [Rx] Acetaminophen Tab [Tylenol] 325 mg PO Q4H 09/19/19 [History] Fludrocortisone [Florinef] 0.2 mg PO DAILY@1200 09/19/19 [History] predniSONE See Taper PO DAILY 09/19/19 [History] Acetaminophen Tab [Tylenol Tab] 500 mg PO Q6H PRN #30 tablet 09/25/19 [Rx] Cholestyramine (with Sugar) [Questran Packet] 4 gm PO ACHS #60 packet 09/25/19 [Rx] Diphenox-Atrop 2.5-0.025 mg [Lomotil] 1 each PO Q6HR PRN #12 tab 09/25/19 [Rx] Loperamide [Imodium] 2 mg PO QID PRN #30 cap 09/25/19 [Rx] Nystatin 100,000 Unit/ml Susp [Mycostatin Oral Susp] 500,000 unit PO QID #240 ml 09/25/19 [Rx] Ondansetron Odt [Zofran Odt] 4 mg PO Q8HR PRN #12 tab 09/25/19 [Rx] Pantoprazole Sodium [Protonix] 40 mg PO DAILY #0 09/25/19 [Rx] Follow up Appointment(s)/Referral(s): Jim Dykes MD [STAFF PHYSICIAN] - 2 Weeks (The office is will call with your appointment time and date.) Acosta Cooper MD [STAFF PHYSICIAN] - 10/30/19 11:30 am [facility] [Primary Care Provider] - 1-2 days [place] MD [STAFF PHYSICIAN] - 10/03/19 1:40 pm Patient Instructions/Handouts: Diphenoxylate/Atropine (By mouth), Loperamide (By mouth), Acetaminophen (By mouth), Cholestyramine (By mouth), Nystatin (By mouth), Ondansetron (By mouth) Activity/Diet/Wound Care/Special Instructions: [facility] - Continue with prednisone Follow-up with GI in the outpatient setting Discussed with patient about following up with [facility] and reschedule his follow-up appointment. Continue current diet Continue with Imodium and Questran as needed if diarrhea persists Activity Limited until follow-up Continue with home care Follow up at the OR clinic upon discharge Discharge Disposition: HOME WITH HOME HEALTH SERVICES
[2019-09-25 15:09] LABS: Immunoglobulin M 91.7 mg/dL (40.0-280.0)
[2019-09-25 16:35] LABS: Albumin 1.77 g/dL (3.80-4.90); Gamma Globulin 0.49 g/dL (0.70-1.50)
--- NOTE | 2019-09-25 22:58 | P.PN ---
Subjective Progress Note Date: 09/25/19 Principal diagnosis: Colitis, diarrhea Patient is seen lying in bed reporting still filling weak but overall improved. Bowel movements improves with antidiarrheals. Objective - Vital Signs Vital signs: Vital Signs Temp 97.5 F L 09/25/19 05:00 Pulse 74 09/25/19 05:00 Resp 16 09/25/19 05:00 BP 121/76 09/25/19 05:00 Pulse Ox 97 09/25/19 05:00 Intake & Output 09/24/19 09/25/19 09/25/19 18:59 06:59 18:59 Intake Total 1050 1560 Output Total 2 Balance 1050 1558 Intake: Intake, IV Titration 800 1560 Amount Sodium Chloride 0.9% 1, 800 1560 000 ml @ 130 mls/hr IV . Q7H42M COUNTS INCLUDE 234 BEDS AT THE [facility] Rx#:[id number] Oral 250 Output: Stool 2 Other: Voiding Method Toilet # Voids 2 2 # Bowel Movements 2 0 - Exam On physical examination, patient appears comfortable in no apparent distress. HEAD: Normocephalic, atraumatic. EYES: No scleral icterus. No conjunctival injection. MOUTH: No lesions, tongue midline. NECK: Trachea midline, no gross abnormalities. ABDOMEN: Soft, thin. Bowel sounds are positive. No organomegaly. No guarding or rigidity. EXTREMITIES: No pedal edema. SKIN: No rashes, no jaundice. NEUROLOGIC: Alert and oriented x3. No focal deficits. - Labs CBC & Chem 7: 09/25/19 07:11 09/25/19 07:11 Labs: Abnormal Lab Results - Last 24 Hours (Table) 09/24/19 09/24/19 09/24/19 Range/Units 20:04 20:04 23:22 WBC (3.8-10.6) k/uL RBC (4.30-5.90) m/uL Hgb (13.0-17.5) gm/dL Hct (39.0-53.0) % Lymphocytes # (1.0-4.8) k/uL Sodium 133 L (137-145) mmol/L Potassium 3.1 L 3.3 L (3.5-5.1) mmol/L Chloride 97 L (98-107) mmol/L Carbon Dioxide 32 H (22-30) mmol/L Creatinine 0.52 L (0.66-1.25) mg/dL Glucose 205 H (74-99) mg/dL Calcium 7.7 L (8.4-10.2) mg/dL Iron 27 L (65-175) ug/dL TIBC 178 L (228-460) ug/dL Ferritin 789.5 H (22.0-322.0) ng/mL AST 12 L (17-59) U/L Lactate Dehydrogenase <150 L (313-618) U/L Total Protein 4.5 L (6.3-8.2) g/dL Total Protein (PEP) 4.1 L (6.2-8.2) g/dL Albumin 2.2 L (3.5-5.0) g/dL 09/25/19 09/25/19 Range/Units 07:11 07:11 WBC 2.4 L (3.8-10.6) k/uL RBC 3.48 L (4.30-5.90) m/uL Hgb 10.2 L (13.0-17.5) gm/dL Hct 31.4 L (39.0-53.0) % Lymphocytes # 0.2 L (1.0-4.8) k/uL Sodium 134 L (137-145) mmol/L Potassium (3.5-5.1) mmol/L Chloride (98-107) mmol/L Carbon Dioxide (22-30) mmol/L Creatinine 0.46 L (0.66-1.25) mg/dL Glucose 105 H (74-99) mg/dL Calcium 7.9 L (8.4-10.2) mg/dL Iron (65-175) ug/dL TIBC (228-460) ug/dL Ferritin (22.0-322.0) ng/mL AST (17-59) U/L Lactate Dehydrogenase (313-618) U/L Total Protein (6.3-8.2) g/dL Total Protein (PEP) (6.2-8.2) g/dL Albumin (3.5-5.0) g/dL Microbiology - Last 24 Hours (Table) 09/19/19 18:51 Blood Culture - Preliminary Blood No Growth after 120 hours 09/20/19 10:19 Stool Culture - Final Stool Assessment and Plan (1) Colitis Narrative/Plan: 68-year-old male with a history of renal cell cancer treated with nephrectomy in the with recurrence in 2019 requiring radiation therapy of the right renal bed was subsequently developed symptoms of gas, bloating, distention, abdominal pain, and loose stools after recent admission for similar complaints. Patient currently reporting improvement in symptoms on steroid therapy. He underwent EGD and colonoscopy for evaluation at the clinic in August 2019 with findings of gastritis, nonobstructing Schatzki's ring and hiatal hernia with numerous ulcerations noted throughout the colon and in the terminal ileum. Chronic active inflammation seen on pathology from biopsies of the colon with note from pathologist stating that in addition to inflammatory process medication effect, infection or other etiology cannot be ruled out. Given the correlation of the patient's symptoms with radiation therapy suspect inflammatory changes secondary to radiation. Testing for Clostridium difficile negative and lactoferrin positive. Computed tomography scan redemonstrates pancolitis. Status: Acute Code(s): K52.9 - NONINFECTIVE GASTROENTERITIS AND COLITIS, UNSPECIFIED SNOMED Code(s): 19586098 (2) Diarrhea Status: Acute Code(s): R19.7 - DIARRHEA, UNSPECIFIED SNOMED Code(s): 91181584 Plan: Supportive care Low fiber, low residual diet as tolerated Avoid lactose products Continue to monitor symptoms and stool output Continue IV steroid therapy Rifaximin 550 mg 3 times a day added for possible bacterial overgrowth in the setting of radiation Imodium as needed for loose stool Thank you for allowing us to participate in the care of the patient we'll continue to follow
== END 2019-09-25 17:22 | disposition home health service (06) | DRG 393 ==
LOC: EC 17:39 → SUPCPDRO 17:39 → 5NMEDONC 20:06 → OBSVTOIN 09-20 15:33
PROVIDERS: ADMIT Hospitalist; ATTEND Hospitalist
DX: K52.0 Gastroenteritis and colitis due to radiation (principal); E43 Unspecified severe protein-calorie malnutrition; E87.3 Alkalosis; D68.9 Coagulation defect, unspecified; E87.1 Hypo-osmolality and hyponatremia; C64.1 Malignant neoplasm of right kidney, except renal pelvis; Z68.1 Body mass index [BMI] 19.9 or less, adult; C78.00 Secondary malignant neoplasm of unspecified lung; K51.00 Ulcerative (chronic) pancolitis without complications; D89.89 Other specified disorders involving the immune mechanism, not elsewhere classified; R62.7 Adult failure to thrive; K22.2 Esophageal obstruction; I95.9 Hypotension, unspecified; E86.0 Dehydration; R00.1 Bradycardia, unspecified; M19.90 Unspecified osteoarthritis, unspecified site; D63.0 Anemia in neoplastic disease; K44.9 Diaphragmatic hernia without obstruction or gangrene; K29.70 Gastritis, unspecified, without bleeding; E86.1 Hypovolemia; Y84.2 Radiological procedure and radiotherapy as the cause of abnormal reaction of the patient, or of later complication, without mention of misadventure at the time of the procedure; Z79.899 Other long term (current) drug therapy; Z85.118 Personal history of other malignant neoplasm of bronchus and lung; Z90.49 Acquired absence of other specified parts of digestive tract; Z90.5 Acquired absence of kidney; Z92.3 Personal history of irradiation; Z87.11 Personal history of peptic ulcer disease; Z92.21 Personal history of antineoplastic chemotherapy
CPT/HCPCS: 36415; 71046; 74018; 74176; 80048; 80053; 81001; 82550; 82607; 82728; 82746; 82784; 83036; 83540; 83550; 83605; 83615; 83630; 83735; 83883; 84100; 84132; 84145; 84165; 84443; 84484; 85025; 85045; 85610; 85730; 86038; 86334; 86431; 87040; 87045; 87046; 87177; 87209; 87324; 93005; 96361; 96374; 96375; 99285

== ENCOUNTER 2019-09-29 19:10 | Inpatient (IN) | payer MEDICARE ==
[2019-09-29] MEDS ORDERED: SODIUM CHLORIDE 0.9% 1,000 ML IV STA ×2 (19:33)
--- NOTE | 2019-09-29 19:35 | ED ---
Weakness HPI - General Chief complaint: Abdominal Pain Stated complaint: Weakness Time Seen by Provider: 09/29/19 19:21 Source: EMS, RN notes reviewed, old records reviewed Mode of arrival: EMS Limitations: physical limitation - History of Present Illness Initial comments: This is a 68-year-old male DF for evaluation patient Dese for evaluation regards to weakness persistent nausea vomiting diarrhea or lethargy persistent sleeping decreased appetite anorexia and dehydration. Patient states he's recently admitted to the hospital has significantly deteriorated since going home. Active nausea no vomiting does admit to diarrhea denies blood in the stool. No current abdominal pain or pain otherwise. No fevers no chest pain or shortness of breath no cough or congestion. MD Complaint: generalized weakness, lack of energy -: month(s) Location: generalized Severity: moderate Severity scale (1-10): 5 Consistency: constant Improves with: none Worsens with: none Context: recent illness, history of similar Associated Symptoms: loss of appetite, nausea/vomiting - Related Data Home Medications Medication Instructions Recorded Confirmed Tamsulosin HCl [Flomax] 0.4 mg PO HS 09/05/19 09/19/19 Acetaminophen Tab [Tylenol] 325 mg PO Q4H 09/19/19 09/19/19 Fludrocortisone [Florinef] 0.2 mg PO DAILY@1200 09/19/19 09/19/19 predniSONE See Taper PO DAILY 09/19/19 09/19/19 Previous Rx's Medication Instructions Recorded Escitalopram [Lexapro] 10 mg PO HS 30 Days #30 tab 09/12/19 Folic Acid 1 mg PO DAILY@1200 30 Days #30 tab 09/12/19 Prochlorperazine [Compazine] 5 mg PO Q12HR PRN #20 tab 09/12/19 Thiamine [Vitamin B-1] 100 mg PO DAILY@1200 30 Days #30 09/12/19 tab Acetaminophen Tab [Tylenol Tab] 500 mg PO Q6H PRN #30 tablet 09/25/19 Cholestyramine (with Sugar) 4 gm PO ACHS #60 packet 09/25/19 [Questran Packet] Diphenox-Atrop 2.5-0.025 mg 1 each PO Q6HR PRN #12 tab 09/25/19 [Lomotil] Loperamide [Imodium] 2 mg PO QID PRN #30 cap 09/25/19 Nystatin 100,000 Unit/ml Susp 500,000 unit PO QID #240 ml 09/25/19 [Mycostatin Oral Susp] Ondansetron Odt [Zofran Odt] 4 mg PO Q8HR PRN #12 tab 09/25/19 Pantoprazole Sodium [Protonix] 40 mg PO DAILY #0 09/25/19 Allergies Allergy/AdvReac Type Severity Reaction Status Date / Time No Known Allergies Allergy Verified 09/19/19 20:33 Review of Systems ROS Statement: Those systems with pertinent positive or pertinent negative responses have been documented in the HPI. ROS Other: All systems not noted in ROS Statement are negative. Past Medical History Past Medical History: Cancer, Renal Disease Additional Past Medical History / Comment(s): Right renal CA(Radiation at [facility]... last dose in May of 2019), Lung ca History of Any Multi-Drug Resistant Organisms: None Reported Past Surgical History: Appendectomy, Orthopedic Surgery Additional Past Surgical History / Comment(s): right kidney: partial kidney removed, Bilateral shoulder, section of lung removed (December of 2018) Past Psychological History: No Psychological Hx Reported Smoking Status: Never smoker Past Alcohol Use History: None Reported Past Drug Use History: None Reported - Past Family History Father Family Medical History: No Reported History General Exam Limitations: physical limitation General appearance: alert, in no apparent distress Head exam: Present: atraumatic, normocephalic, normal inspection Eye exam: Present: normal appearance, PERRL, EOMI. Absent: scleral icterus, conjunctival injection, periorbital swelling ENT exam: Present: normal exam, mucous membranes moist Neck exam: Present: normal inspection. Absent: tenderness, meningismus, lymphadenopathy Respiratory exam: Present: normal lung sounds bilaterally. Absent: respiratory distress, wheezes, rales, rhonchi, stridor Cardiovascular Exam: Present: regular rate, normal rhythm, normal heart sounds. Absent: systolic murmur, diastolic murmur, rubs, gallop, clicks GI/Abdominal exam: Present: soft, normal bowel sounds. Absent: distended, tenderness, guarding, rebound, rigid Extremities exam: Present: normal inspection, full ROM, normal capillary refill. Absent: tenderness, pedal edema, joint swelling, calf tenderness Back exam: Present: normal inspection Neurological exam: Present: alert, oriented X3, CN II-XII intact Psychiatric exam: Present: normal affect, normal mood Skin exam: Present: warm, dry, intact, normal color. Absent: rash Course Vital Signs 09/29/19 09/29/19 19:12 20:00 Temperature 98.8 F Pulse Rate 100 93 Respiratory 18 16 Rate Blood Pressure 96/61 92/58 O2 Sat by Pulse 97 97 Oximetry - Reevaluation(s) Reevaluation #1: 09/29/19 22:21 Medical record is reviewed Reevaluation #2: 09/29/19 22:21 Symptoms improved EKG Findings - EKG Comments: EKG Findings:: EKG shows rhythm of 97, GA 124, QRS 90, QTc 424 Medical Decision Making - Medical Decision Making 68 male DF for evaluation of weakness recent hospital admission and discharged patient here for same, patient is low potassium we will admit for hydration, PTOT and monitoring of weakness - Lab Data Result diagrams: 09/29/19 19:54 09/29/19 19:54 Lab Results 09/29/19 09/29/19 09/29/19 Range/Units 19:54 19:54 19:54 WBC 2.5 L (3.8-10.6) k/uL RBC 3.21 L (4.30-5.90) m/uL Hgb 9.4 L (13.0-17.5) gm/dL Hct 28.5 L (39.0-53.0) % MCV 88.8 (80.0-100.0) fL MCH 29.3 (25.0-35.0) pg MCHC 33.0 (31.0-37.0) g/dL RDW 14.7 (11.5-15.5) % Plt Count 271 (150-450) k/uL Neutrophils % 81 % Lymphocytes % 9 % Monocytes % 5 % Eosinophils % 3 % Basophils % 0 % Neutrophils # 2.0 (1.3-7.7) k/uL Lymphocytes # 0.2 L (1.0-4.8) k/uL Monocytes # 0.1 (0-1.0) k/uL Eosinophils # 0.1 (0-0.7) k/uL Basophils # 0.0 (0-0.2) k/uL Sodium 130 L (137-145) mmol/L Potassium 3.0 L (3.5-5.1) mmol/L Chloride 93 L (98-107) mmol/L Carbon Dioxide 32 H (22-30) mmol/L Anion Gap 5 mmol/L BUN 19 (9-20) mg/dL Creatinine 0.49 L (0.66-1.25) mg/dL Est GFR (CKD-EPI)AfAm >90 (>60 ml/min/1.73 sqM) Est GFR (CKD-EPI)NonAf >90 (>60 ml/min/1.73 sqM) Glucose 104 H (74-99) mg/dL Calcium 7.1 L (8.4-10.2) mg/dL Phosphorus 2.5 (2.5-4.5) mg/dL Magnesium 2.0 (1.6-2.3) mg/dL Total Bilirubin 1.2 (0.2-1.3) mg/dL AST 20 (17-59) U/L ALT 8 (4-49) U/L Alkaline Phosphatase 40 (38-126) U/L Creatine Kinase 24 L (55-170) U/L Troponin I <0.012 (0.000-0.034) ng/mL Total Protein 4.3 L (6.3-8.2) g/dL Albumin 2.0 L (3.5-5.0) g/dL TSH 1.950 (0.465-4.680) mIU/L - Radiology Data Radiology results: report reviewed (Chest x-ray is negative for acute disease), image reviewed Disposition Clinical Impression: Dehydration, Diarrhea, Weakness, Malnutrition, Hypokalemia Disposition: ADMITTED IP TO THIS HOSP Condition: Fair Is patient prescribed a controlled substance at d/c from ED?: No Referrals: [facility],Clinic [Primary Care Provider] - 1-2 days
--- NOTE | 2019-09-29 19:50 | XR ---
EXAMINATION TYPE: XR chest 2V DATE OF EXAM: 09/29/2019 COMPARISON: 09/19/2019 HISTORY: Weakness TECHNIQUE: Frontal and lateral views of the chest are obtained. FINDINGS: Skinfold overlies the lateral right hemithorax. There is no focal air space opacity, pleura l effusion, or pneumothorax seen. Chronic interstitial prominence. The cardiac silhouette size is wit hin normal limits. Old traumatic and/or postsurgical changes of the distal clavicles. There is diffus e osseous demineralization present. IMPRESSION: Chronic changes with no acute cardiopulmonary process.
[2019-09-29 20:01] LABS: Basophils % (A) 0 %; Eosinophils # (A) 0.1 k/uL (0-0.7); Eosinophils % (A) 3 %; HCT 28.5 % (39.0-53.0); HGB 9.4 gm/dL (13.0-17.5); Lymphocytes # (A) 0.2 k/uL (1.0-4.8); Lymphocytes % (A) 9 %; MCH 29.3 pg (25.0-35.0); MCV 88.8 fL (80.0-100.0); Mean Platelet Volume 7.3; Monocytes # (A) 0.1 k/uL (0-1.0); Monocytes % (A) 5 %; Neutrophils % (A) 81 %; Platelet Count 271 k/uL (150-450); RBC 3.21 m/uL (4.30-5.90); RDW 14.7 % (11.5-15.5); WBC 2.5 k/uL (3.8-10.6)
[2019-09-29 20:13] LABS: ALT 8 U/L (4-49); AST 20 U/L (17-59); African American GFR (CKD) >90 (>60 ml/min/1.73 sqM); Alkaline Phosphatase 40 U/L (38-126); Anion Gap 5 mmol/L; Blood Urea Nitrogen 19 mg/dL (9-20); Calcium 7.1 mg/dL (8.4-10.2); Carbon Dioxide 32 mmol/L (22-30); Chloride 93 mmol/L (98-107); Creatine Kinase 24 U/L (55-170); Glucose 104 mg/dL (74-99); Non-African American GFR(CKD) >90 (>60 ml/min/1.73 sqM); Phosphorus 2.5 mg/dL (2.5-4.5); Sodium 130 mmol/L (137-145); Total Bilirubin 1.2 mg/dL (0.2-1.3); Total Protein 4.3 g/dL (6.3-8.2)
[2019-09-29] MEDS ORDERED: POTASSIUM BICARBONATE/CIT AC 20 MEQ TABLET.EFF PO ONE (21:33)
[2019-09-29] MEDS ORDERED: ONDANSETRON 4 MG/2 ML VIAL IVP PRN (22:19)
[2019-09-29 22:24] LABS: Appearance,Urine Clear (Clear); Bacteria,Urine Rare /hpf; Bilirubin,Urine Negative (Negative); Blood,Urine Negative (Negative); Color,Urine Yellow; Glucose,Urine (UA) Negative (Negative); Ketones,Urine 2+ (Negative); Leukocyte Esterase,Urine Negative (Negative); Mucus,Urine Rare /hpf; Nitrite,Urine Positive (Negative); PH, Urine 6.5 (5.0-8.0); Protein,Urine Trace (Negative); RBC,Urine 1 /hpf (0-5); Specific Gravity,Urine 1.017 (1.001-1.035); Squamous Epithelial Cell,Urine <1 /hpf (0-4); Urobilinogen,Urine <2.0 mg/dL (<2.0); WBC,Urine 5 /hpf (0-5)
[2019-09-29] MEDS: DEXTROSE 5%-0.45% NACL 1,000 ML IV ONE (22:44)
[2019-09-30] MEDS: PANTOPRAZOLE 40 MG/10 ML VIAL IVP SCH (09:34)
[2019-09-30] MEDS: DEXTROSE 5%-0.45% NACL 1,000 ML IV ONE (09:34)
[2019-09-30] MEDS ORDERED: DIPHENOX-ATROP 2.5-0.025 MG 1 EACH TAB PO PRN (10:00)
[2019-09-30] MEDS ORDERED: ACETAMINOPHEN TAB 500 MG TAB PO PRN (10:00)
[2019-09-30] MEDS ORDERED: ONDANSETRON ODT 4 MG TAB PO PRN (10:00)
[2019-09-30 10:31] VITALS: BMI 17.3
[2019-09-30] MEDS: SODIUM CHLORIDE 0.9% 1,000 ML IV SCH ×2 (10:47→21:19)
[2019-09-30] MEDS ORDERED: FOLIC ACID 1 MG TAB PO SCH (12:00)
--- NOTE | 2019-09-30 12:01 | P.HPIM ---
History of Present Illness 68-year-old male came in with compensative diarrhea found to be hyponatremic and hyperkalemic patient was started on IV fluids and subsequently admitted. Patient was recently discharged from my service for similar complaints. Patient was due to have colitis which may be autoimmune related secondary to his cancer itself are secondary to radiation. Patient was discharged on steroids and the patient was treated for this diarrhea and was advised to go to [facility] with his cancer is being treated. She was advised to go to [facility] because he will need further workup for his colitis at the higher level facility. Patient diarrhea is better patient had multiple episodes since he was discharged patient has been weak and lethargic patient was evaluated by physical therapy last time at the time he didn't qualify for rehabilitation. Patient never followed up in [facility] and never set up an appointment. Patient does have renal cell cancer received radiation therapy, follows up in [facility] for this. Patient appears much better today as he didn't take any of his home medications. Doesn't want to take much of the medications he doesn't want systemic steroids which will be discontinued will monitor without steroids. Patient is medications of the reason why he is feeling weak. She had mild crampy abdominal pain yesterday no fevers. Review of Systems REVIEW OF SYSTEMS: CONSTITUTIONAL: No fever, no malaise, no fatigue. HEENT: No recent visual problems or hearing problems. Denied any sore throat. CARDIOVASCULAR: No chest pain, orthopnea, PND, no palpitations, no syncope. PULMONARY: No shortness of breath, no cough, no hemoptysis. GASTROINTESTINAL: As mentioned in HPI NEUROLOGICAL: No headaches, no weakness, no numbness. HEMATOLOGICAL: Denies any bleeding or petechiae. GENITOURINARY: Denies any burning micturition, frequency, or urgency. MUSCULOSKELETAL/RHEUMATOLOGICAL: Denies any joint pain, swelling, or any muscle pain. ENDOCRINE: Denies any polyuria or polydipsia. The rest of the 14-point review of systems is negative. Past Medical History Past Medical History: Cancer, Renal Disease Additional Past Medical History / Comment(s): Right renal CA(Radiation at [facility]... last dose in May of 2019), Lung ca History of Any Multi-Drug Resistant Organisms: None Reported Past Surgical History: Appendectomy, Orthopedic Surgery, Tonsillectomy Additional Past Surgical History / Comment(s): right kidney: partial kidney removed, Bilateral shoulder, section of lung removed (December of 2018) Past Psychological History: No Psychological Hx Reported Smoking Status: Never smoker Past Alcohol Use History: None Reported Past Drug Use History: None Reported - Past Family History Father Family Medical History: No Reported History Medications and Allergies Home Medications Medication Instructions Recorded Confirmed Type Tamsulosin HCl [Flomax] 0.4 mg PO HS 09/05/19 09/30/19 History Escitalopram [Lexapro] 10 mg PO HS 30 Days #30 tab 09/12/19 09/30/19 Rx Folic Acid 1 mg PO DAILY@1200 30 Days #30 tab 09/12/19 09/30/19 Rx Prochlorperazine [Compazine] 5 mg PO Q12HR PRN #20 tab 09/12/19 09/30/19 Rx Thiamine [Vitamin B-1] 100 mg PO DAILY@1200 30 Days #30 09/12/19 09/30/19 Rx tab Acetaminophen Tab [Tylenol] 325 mg PO Q4H 09/19/19 09/30/19 History Fludrocortisone [Florinef] 0.2 mg PO DAILY@1200 09/19/19 09/30/19 History predniSONE See Taper PO DAILY 09/19/19 09/30/19 History Acetaminophen Tab [Tylenol Tab] 500 mg PO Q6H PRN #30 tablet 09/25/19 09/30/19 Rx Cholestyramine (with Sugar) 4 gm PO ACHS #60 packet 09/25/19 09/30/19 Rx [Questran Packet] Diphenox-Atrop 2.5-0.025 mg 1 each PO Q6HR PRN #12 tab 09/25/19 09/30/19 Rx [Lomotil] Loperamide [Imodium] 2 mg PO QID PRN #30 cap 09/25/19 09/30/19 Rx Nystatin 100,000 Unit/ml Susp 500,000 unit PO QID #240 ml 09/25/19 09/30/19 Rx [Mycostatin Oral Susp] Ondansetron Odt [Zofran Odt] 4 mg PO Q8HR PRN #12 tab 09/25/19 09/30/19 Rx Pantoprazole Sodium [Protonix] 40 mg PO DAILY #0 09/25/19 09/30/19 Rx Allergies Allergy/AdvReac Type Severity Reaction Status Date / Time No Known Allergies Allergy Verified 09/30/19 08:25 Physical Exam Vitals: Vital Signs Temp Pulse Pulse Resp BP BP Pulse Ox 09/30/19 04:38 98.8 F 101 H 16 100/63 95 09/29/19 23:00 99.0 F 99 16 110/69 96 09/29/19 22:30 93 16 116/74 96 09/29/19 22:00 108 H 15 98/59 98 09/29/19 21:30 96 15 94/57 96 09/29/19 21:00 97 16 104/61 97 09/29/19 20:30 97 16 96/58 99 09/29/19 20:00 93 16 92/58 97 09/29/19 19:12 98.8 F 100 18 96/61 97 Intake and Output 09/29/19 09/30/19 09/30/19 22:59 06:59 14:59 Intake Total 498 Balance 498 Intake: Intake, IV Titration 498 Amount Dextrose 5%-0.45% NaCl 1, 498 000 ml @ 83 mls/hr IV . Q12H3M ONE Rx#:[id number] Other: Voiding Method Toilet Urinal # Voids 1 # Bowel Movements 1 Weight 51.71 kg 51.71 kg 51.71 kg PHYSICAL EXAMINATION: GENERAL: The patient is alert and oriented x3, not in any acute distress. Well developed, well nourished. HEENT: Pupils are round and equally reacting to light. EOMI. No scleral icterus. No conjunctival pallor. Normocephalic, atraumatic. No pharyngeal erythema. No thyromegaly. CARDIOVASCULAR: S1 and S2 present. No murmurs, rubs, or gallops. PULMONARY: Chest is clear to auscultation, no wheezing or crackles. ABDOMEN: Soft, nontender, nondistended, normoactive bowel sounds. No palpable organomegaly. MUSCULOSKELETAL: No joint swelling or deformity. EXTREMITIES: No cyanosis, clubbing, or pedal edema. NEUROLOGICAL: Gross neurological examination did not reveal any focal deficits. SKIN: No rashes. Results CBC & Chem 7: 09/29/19 19:54 09/29/19 19:54 Labs: Abnormal Lab Results - Last 24 Hours (Table) 0309/29/19 09/29/19 Range/Units 19:54 19:54 22:10 WBC 2.5 L (3.8-10.6) k/uL RBC 3.21 L (4.30-5.90) m/uL Hgb 9.4 L (13.0-17.5) gm/dL Hct 28.5 L (39.0-53.0) % Lymphocytes # 0.2 L (1.0-4.8) k/uL Sodium 130 L (137-145) mmol/L Potassium 3.0 L (3.5-5.1) mmol/L Chloride 93 L (98-107) mmol/L Carbon Dioxide 32 H (22-30) mmol/L Creatinine 0.49 L (0.66-1.25) mg/dL Glucose 104 H (74-99) mg/dL Calcium 7.1 L (8.4-10.2) mg/dL Creatine Kinase 24 L (55-170) U/L Total Protein 4.3 L (6.3-8.2) g/dL Albumin 2.0 L (3.5-5.0) g/dL Urine Protein Trace H (Negative) Urine Ketones 2+ H (Negative) Urine Bacteria Rare H (None) /hpf Urine Mucus Rare H (None) /hpf Thrombosis Risk Factor Assmnt - Choose All That Apply Any of the Below Risk Factors Present?: No Other Risk Factors: Yes Each Risk Factor Represents 2 Points: Age 61-74 years, Malignancy Other congenital or acquired thrombophilia - If yes, enter type in comment: No Thrombosis Risk Factor Assessment Total Risk Factor Score: 4 Thrombosis Risk Factor Assessment Level: Moderate Risk Assessment and Plan Plan: -Diarrhea, dehydration: Patient was started on IV fluids. Symptomatically treatment for diarrhea including a colostomy and Lomotil as needed. Patient is believed to have autoimmune admitted diarrhea from a renal cell cancer. Patient is feeling weak because of her systemic steroids which can be a side effect of prednisone as per his request we will discontinue oral steroids. -Hypovolemic hyponatremia: IV fluids as mentioned above -Hypokalemia secondary to diarrhea: We'll replace potassium And-tachycardia secondary to dehydration -Renal cell cancer patient need to follow up in [facility] I asked him to make an appointment today before she leaves in a day or 2. 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
[2019-09-30] MEDS: LOPERAMIDE 2 MG CAP PO PRN ×2 (12:11→17:41)
[2019-09-30] MEDS: NYSTATIN 100,000 UNIT/ML SUSP 500,000 UNIT/5 ML CUP PO SCH ×3 (12:33→19:55)
[2019-09-30] MEDS: CHOLESTYRAMINE (WITH SUGAR) 4 GM PACKET PO SCH ×3 (12:33→19:54)
[2019-09-30] MEDS: FLUDROCORTISONE 0.1 MG TAB PO SCH (12:33)
--- NOTE | 2019-09-30 16:52 | CONS ---
CONSULTATION DATE OF SERVICE: 09/30/2019 The patient is a pleasant 68-year-old white male who was just discharged from the hospital about 2 weeks ago at which time he was admitted to the hospital with severe diarrhea and weight loss for the last 4 weeks' duration. The patient was admitted to [facility] about 4 or 5 weeks ago and underwent extensive investigation there, he was also treated for renal cell carcinoma while there in May of 2019. According to the patient, he had an EGD and colonoscopy done at [facility] sometime in end of August of this year, which showed severe ulcerations throughout the entire colon suspicious for inflammatory bowel disease. Biopsies of the results were never available for us. During his last hospitalization, he was treated empirically with steroids with IV Solu-Medrol for 3 days and was changed to prednisone 40 mg daily and he was discharged home on 40 mg prednisone. Patient stated that after he went home about 2 weeks ago, he started having diarrhea and he took Imodium with no help. His diet was getting worse with eating and he tried to cut down his oral intake and by doing this, he lost some weight. So yesterday, he decided to stop all the medications and because of progressive weakness and fatigue and failure to thrive, he came to the emergency room and subsequently admitted to the hospital for further evaluation. This morning, he states that he has had some cramping lower abdominal pain, had one bowel movement this morning. No fever, chills, or night sweats. He denies any cough, shortness of breath. PAST MEDICAL HISTORY: Significant for renal cell carcinoma for which he underwent radiation therapy at [facility] May of 2019, chronic colitis diagnosed a month ago. MEDICATIONS: At home include Flomax, Lexapro, folic acid, Compazine, vitamin B1, Florinef, Tylenol, Questran, Imodium, Lomotil, Mycostatin, Ondansetron and pantoprazole. ALLERGIES: None. SOCIAL HISTORY: No smoking or alcohol use. PAST SURGICAL HISTORY: Tonsillectomy, partial kidney removal, bilateral shoulder surgery, lobectomy in December of 2018. REVIEW OF SYSTEMS: CARDIOPULMONARY: He denies any chest pain, shortness of breath. GENITOURINARY: No dysuria or hematuria. MUSCULOSKELETAL: Unremarkable. SKIN: Unremarkable. ENDOCRINE: Unremarkable. PSYCHIATRIC: Unremarkable, other than anxiety. NEUROLOGY: Unremarkable. ENT/VISION: Unremarkable. CONSTITUTIONAL: Progressive weight loss. No fever, chills, night sweats. PHYSICAL EXAMINATION: He appears comfortable. No apparent distress. Vital signs are stable, blood pressure is 109/67, pulse rate is 101, temperature 98.9. HEENT: Examination unremarkable, conjunctivae are pink, sclerae nonicertic, oral cavity no lesions. NECK: No JVD or lymph node enlargement. CHEST: Clear to auscultation. HEART: Regular rate and rhythm. ABDOMEN: Soft. Bowel sounds are positive. No organomegaly. EXTREMITIES: No pedal edema. SKIN: No rashes. NEURO: He is alert and oriented x3. No focal deficits. LABS: WBC 2.5, hemoglobin 9.4, platelets 271, lymphocytes 0.2. Sodium 130, potassium 3.0, chloride 93, CO2 is 22. Rest of the labs are within normal limits. C difficile toxin is negative. IMPRESSION: 1. Chronic diarrhea for the last 2 months' duration, status post EGD colonoscopy at [facility], which revealed diffuse ulcerations involving the entire colon. Biopsies of the chest are not available for this date. The patient was treated empirically with steroids and discharged home during his last hospitalization. He stopped taking steroids as of yesterday and he felt the symptoms are related to side effects from the medication. He feels better today and had little bowel movement this morning. 2. History of kidney cancer, renal cell carcinoma, diagnosed 3 years ago with recurrence. 3. Progressive weight loss, fatigue. 4. Electrolyte abnormalities with hypokalemia and hyponatremia. RECOMMENDATION: I had a lengthy discussion with the patient regarding restarting back on steroids but at this time he refuses to have this done. He wants to take only Imodium as needed. Hence, he will continue that and increase oral intake. Start him on nutritional supplements with Ensure 1 can 3 times daily. Repeat labs in the morning and will follow with you clinical at this time. Thank you for this consultation. MMODL / IJN: [id number] /
[2019-09-30] MEDS: ACETAMINOPHEN TAB 325 MG TAB PO PRN (17:41)
[2019-09-30] MEDS: TAMSULOSIN 0.4 MG CAP.ER.24H PO SCH (19:54)
[2019-09-30] MEDS: ESCITALOPRAM 10 MG TAB PO SCH (19:54)
[2019-09-30] MEDS: HEPARIN SODIUM,PORCINE 5,000 UNIT/ML 1 ML VIAL SQ SCH (19:54)
[2019-10-01] MEDS: LOPERAMIDE 2 MG CAP PO PRN ×2 (00:08→16:38)
[2019-10-01] MEDS: ACETAMINOPHEN TAB 325 MG TAB PO PRN ×4 (00:08→19:59)
[2019-10-01] MEDS: TAMSULOSIN 0.4 MG CAP.ER.24H PO SCH ×2 (00:10→19:58)
[2019-10-01] MEDS: SODIUM CHLORIDE 0.9% 1,000 ML IV SCH ×3 (00:11→20:32)
[2019-10-01 06:17] LABS: African American GFR (CKD) >90 (>60 ml/min/1.73 sqM); Anion Gap 6 mmol/L; Blood Urea Nitrogen 15 mg/dL (9-20); Calcium 7.2 mg/dL (8.4-10.2); Carbon Dioxide 28 mmol/L (22-30); Chloride 99 mmol/L (98-107); Glucose 89 mg/dL (74-99); Non-African American GFR(CKD) >90 (>60 ml/min/1.73 sqM); Potassium 2.8 mmol/L (3.5-5.1); Sodium 133 mmol/L (137-145)
[2019-10-01] MEDS ORDERED: Potassium Replacement Protocol 1 EACH MISC MISCELLANE PRN ×2 (08:18→09:39)
[2019-10-01] MEDS ORDERED: predniSONE 20 MG TAB PO SCH (09:00)
[2019-10-01] MEDS ORDERED: POTASSIUM CHLORIDE ER 20 MEQ TAB.ER PO SCH (09:00)
[2019-10-01] MEDS: POTASSIUM CHLORIDE 10 MEQ in WATER FOR INJECTION 1 100ML.BAG IVPB SCH ×6 (10:03→18:21)
[2019-10-01] MEDS: HEPARIN SODIUM,PORCINE 5,000 UNIT/ML 1 ML VIAL SQ SCH ×2 (10:04→19:58)
[2019-10-01] MEDS: PANTOPRAZOLE 40 MG/10 ML VIAL IVP SCH (10:04)
[2019-10-01] MEDS: NYSTATIN 100,000 UNIT/ML SUSP 500,000 UNIT/5 ML CUP PO SCH ×4 (10:05→19:58)
[2019-10-01] MEDS: CHOLESTYRAMINE (WITH SUGAR) 4 GM PACKET PO SCH ×4 (10:11→19:49)
--- NOTE | 2019-10-01 13:19 | P.PN ---
Subjective Progress Note Date: 10/01/19 Principal diagnosis: 68-year-old male came in with compensative diarrhea found to be hyponatremic and hyperkalemic patient was started on IV fluids and subsequently admitted. Maria ent was recently discharged from my service for similar complaints. Patient was due to have colitis which may be autoimmune related secondary to his cancer itself are secondary to radiation. Patient was discharged on steroids and the patient was treated for this diarrhea and was advised to go to [facility] with his cancer is being treated. She was advised to go to [facility] because he will need further workup for his colitis at the higher level facility. Patient diarrhea is better patient had multiple episodes since he was discharged patient has been weak and lethargic patient was evaluated by physical therapy last time at the time he didn't qualify for rehabilitation. Patient never followed up in [facility] and never set up an appointment. Patient does have renal cell cancer received radiation therapy, follows up in [facility] for this. Patient appears much better today as he didn't take any of his home medications. Doesn't want to take much of the medications he doesn't want systemic steroids which will be discontinued will monitor without steroids. Patient is medications of the reason why he is feeling weak. She had mild crampy abdominal pain yesterday no fevers. 10/01/2019 Patient was seen in follow-up today with no acute overnight issues. Patient is currently having a bowel movement and states it is formed and is not having diarrhea. Patient's sodium is improved at 133 today. Potassium is low at 2.8 and will be replaced. Patient refusing oral supplementation and requesting IV potassium. Patient continues to eat very little although is eating and discussed with the patient at length about needing protein for strength as he has been quite weak. Physical therapy to see the patient today as he was refusing to see them yesterday. Patient was up to the bathroom today. Had a lengthy discussion with family members via teleconference as they would like patient transferred to [facility]. Explained to them in detail that the transfer is not possible at this time as he is not requiring higher level of care. Patient's family members continue to call the nursing staff asking about transferring to [facility] directly from this hospital. Case management made appointments with the [facility] for this Monday and the family is to transport the patient to the [facility] on [address]. Currently no reports of chest pain, shortness of breath, or palpitations. Patient is afebrile. No reports of nausea or vomiting and patient is tolerating diet. Objective - Vital Signs Vital signs: Vital Signs Temp 97.8 F 10/01/19 11:47 Pulse 97 10/01/19 11:47 Resp 17 10/01/19 11:47 BP 102/66 10/01/19 11:47 Pulse Ox 97 10/01/19 11:47 Intake & Output 09/30/19 10/01/19 10/01/19 18:59 06:59 18:59 Intake Total 775 1160 120 Balance 775 1160 120 Weight 51.71 kg Intake: Intake, IV Titration 715 800 Amount Sodium Chloride 0.9% 1, 715 800 000 ml @ 100 mls/hr IV . Q10H DEVAUGHN Rx#:[id number] Oral 60 360 120 Other: Voiding Method Toilet Toilet Urinal Urinal # Voids 1 # Bowel Movements 1 - Exam GENERAL: The patient is alert and oriented x3, not in any acute distress. Well developed, well nourished. HEENT: Pupils are round and equally reacting to light. EOMI. No scleral icterus. No conjunctival pallor. Normocephalic, atraumatic. No pharyngeal erythema. No thyromegaly. CARDIOVASCULAR: S1 and S2 present. No murmurs, rubs, or gallops. PULMONARY: Chest is clear to auscultation, no wheezing or crackles. ABDOMEN: Soft, thin, nontender, nondistended, normoactive bowel sounds. No palpable organomegaly. MUSCULOSKELETAL: No joint swelling or deformity. EXTREMITIES: No cyanosis, clubbing, or pedal edema. NEUROLOGICAL: Gross neurological examination did not reveal any focal deficits. SKIN: No rashes. - Labs CBC & Chem 7: 09/29/19 19:54 10/01/19 05:41 Labs: Abnormal Lab Results - Last 24 Hours (Table) 10/01/19 Range/Units 05:41 Sodium 133 L (137-145) mmol/L Potassium 2.8 L (3.5-5.1) mmol/L Creatinine 0.41 L (0.66-1.25) mg/dL Calcium 7.2 L (8.4-10.2) mg/dL Assessment and Plan Assessment: -Diarrhea, dehydration: Patient was started on IV fluids. Symptomatic treatment for diarrhea including Imodium and Lomotil as needed. Patient is believed to have autoimmune admitted diarrhea from a renal cell cancer. -Hypovolemic hyponatremia: IV fluids as mentioned above -Hypokalemia secondary to diarrhea: Potassium is 2.8 today and being replaced. -tachycardia secondary to dehydration -Renal cell cancer patient need to follow up in [facility]. Patient has stage IV metastatic disease. Case management made appointments for this Monday at the [facility] -Autoimmune mediated colitis as mentioned above -Generalized weakness and tiredness can be secondary to cancer -Gastroesophageal reflux disease and peptic ulcer disease for which patient will be continued on Protonix -Mild protein calorie malnutrition -DVT prophylaxis with subcu heparin, early ambulation. Patient instructed to increase activity
[2019-10-01] MEDS: FLUDROCORTISONE 0.1 MG TAB PO SCH (13:48)
--- NOTE | 2019-10-01 15:37 | PN ---
PROGRESS NOTE DATE OF DICTATION: 10/01/2019 Patient is a 68-year-old pleasant white male admitted to the hospital with fatigue, weakness, and . He has been having chronic intermittent diarrhea, was diagnosed with chronic colitis based on colonoscopy that was done at [facility] about 6 weeks ago. He was treated empirically with steroids. Patient initially did well, but he believes that he stopped taking the medications because of the side effects. He was admitted to hospital 2 days ago and presently off steroids. He takes Imodium as needed. He is feeling better. He feels that his appetite is improving. He still had about 2 loose bowel movements this morning. No nausea, no vomiting. No fever, chills, or night sweats. PHYSICAL EXAMINATION: He appears comfortable. Vital signs are stable. Blood pressure 102/66, pulse 97, temperature 97.8. HEENT: Examination unremarkable. Conjunctivae are pink. Sclerae nonicteric. Oral cavity no lesions. CHEST: Clear to auscultation. HEART: Regular rate and rhythm. ABDOMEN: Soft. Bowel sounds are positive. No organomegaly. EXTREMITIES: No pedal edema. NEUROLOGIC: Alert and oriented x3. No focal deficits. LABS: From today, sodium 133, potassium 2.8, BUN and creatinine within normal limits. C difficile toxin was negative. IMPRESSION: 1. Chronic colitis with a colonoscopy done at [facility] towards the end of August that showed severe ulcerations throughout the entire colon, was treated empirically with IV steroids as well as with oral steroids on an outpatient basis, but he stopped while he was taking 30 mg daily because of side effects. Currently, has intermittent diarrhea and taking Imodium as needed. 2. History of renal cell cancer for which she follows at [facility], radiation therapy in May of 2019. 3. Intermittent diarrhea and failure to thrive. 4. Electrolyte abnormalities. RECOMMENDATION: 1. Continue with symptomatic therapy with Imodium as needed. 2. Encourage the patient to increase his oral intake with nutritional supplements as needed. 3. Replace electrolytes. 4. If patient doing well, he can be discharged home tomorrow with outpatient followup in 2-3 weeks. Thank you for this consultation. MMODL / IJN: [id number] /
[2019-10-01] MEDS: ESCITALOPRAM 10 MG TAB PO SCH (19:49)
[2019-10-02] MEDS: LOPERAMIDE 2 MG CAP PO PRN ×2 (06:11→12:16)
[2019-10-02] MEDS: ACETAMINOPHEN TAB 325 MG TAB PO PRN (06:15)
[2019-10-02 07:00] LABS: Basophils % (A) 0 %; Eosinophils # (A) 0.1 k/uL (0-0.7); Eosinophils % (A) 4 %; HCT 33.6 % (39.0-53.0); HGB 10.5 gm/dL (13.0-17.5); Lymphocytes # (A) 0.4 k/uL (1.0-4.8); Lymphocytes % (A) 14 %; MCH 28.6 pg (25.0-35.0); MCHC 31.3 g/dL (31.0-37.0); MCV 91.4 fL (80.0-100.0); Mean Platelet Volume 7.3; Monocytes # (A) 0.1 k/uL (0-1.0); Monocytes % (A) 3 %; Neutrophils # (A) 2.4 k/uL (1.3-7.7); Neutrophils % (A) 78 %; Platelet Count 327 k/uL (150-450); RBC 3.68 m/uL (4.30-5.90); RDW 15.1 % (11.5-15.5); WBC 3.1 k/uL (3.8-10.6)
[2019-10-02 07:22] LABS: African American GFR (CKD) >90 (>60 ml/min/1.73 sqM); Anion Gap 11 mmol/L; Blood Urea Nitrogen 14 mg/dL (9-20); Calcium 7.4 mg/dL (8.4-10.2); Carbon Dioxide 22 mmol/L (22-30); Chloride 99 mmol/L (98-107); Glucose 75 mg/dL (74-99); Non-African American GFR(CKD) >90 (>60 ml/min/1.73 sqM); Potassium 3.2 mmol/L (3.5-5.1); Sodium 132 mmol/L (137-145)
[2019-10-02] MEDS ORDERED: PANTOPRAZOLE 40 MG TABLET PO SCH (07:30)
[2019-10-02] MEDS: CHOLESTYRAMINE (WITH SUGAR) 4 GM PACKET PO SCH ×2 (09:34→12:13)
[2019-10-02] MEDS: NYSTATIN 100,000 UNIT/ML SUSP 500,000 UNIT/5 ML CUP PO SCH (09:34)
[2019-10-02] MEDS: HEPARIN SODIUM,PORCINE 5,000 UNIT/ML 1 ML VIAL SQ SCH (09:36)
[2019-10-02] MEDS: POTASSIUM CHLORIDE 20 MEQ in WATER FOR INJECTION 1 100ML.BAG IVPB SCH ×2 (10:00→12:17)
[2019-10-02 11:57] VITALS: BP 103/69; PULSE 101; RESP 18; TEMP 97.7
[2019-10-02] MEDS: FLUDROCORTISONE 0.1 MG TAB PO SCH (12:16)
--- NOTE | 2019-10-02 12:35 | P.DS ---
Providers Date of admission: 09/30/19 09:40 Expected date of discharge: 10/02/19 Attending physician: Rashi Cain Consults: 09/30/19 10:02 Consult Physician Routine Consulting Provider: Lori Durant Consult Reason/Comments: diarrhea, uncontrolled Do you want consulting provider notified?: Yes Primary care physician: [facility] Course: Final diagnosis -Diarrhea, dehydration Patient is believed to have autoimmune admitted diarrhea from a renal cell cancer. -Hypovolemic hyponatremia -Hypokalemia secondary to diarrhea -tachycardia secondary to dehydration -Renal cell cancer. Patient has stage IV metastatic disease -Autoimmune mediated colitis as mentioned above -Generalized weakness and tiredness can be secondary to cancer -Gastroesophageal reflux disease and peptic ulcer disease -Mild protein calorie malnutrition -DVT prophylaxis Discharge disposition Patient is being discharged in a stable condition with guarded prognosis to home and will have home care. Patient will follow-up with [facility] this Monday as appointments have been scheduled. Patient will continue on Imodium, Lomotil, Questran as needed for diarrhea. Total time taken is 35 minutes. History of present illness This is a 68-year-old male who was recently admitted diarrhea, weakness, and fatigue and was being closely monitored. Patient has been admitted 3 times over the last month for similar symptoms. Patient was found to be hyponatremic and hypokalemic and was being replaced. Patient continues to be weak and not eating very much but was agreeable to working with rehab requiring minimal assistance and patient is able to get up to the bathroom on his own. Patient states he continues to have some diarrhea although is intermittent and is not showing nursing staff any of his bowel movements for documentation. Patient is maintained on a regular diet with ensure 3 times a day for protein. Patient continues to eat very little and states he does not feel well. Potassium was 2.8 and replaced and is currently 3.2 and being replaced again. Sodium is 132 today. Patient was maintained on IV normal saline along with potassium replacements. Patient refusing to take any prednisone or Lexapro that was recently prescribed to him but continues to take Lomotil and Imodium as needed for diarrhea. Discussed with the patient and family members at length about how is extremely important to follow with [facility] appointments have been made by her dependency case manager for this Monday with multiple consultants at the [facility]. Per family request and wishes patient is being transferred via EMS status post discharge today to the [facility] emergency [place]. Patient and family members were requesting for transfer and was discussed with them that transferring was not an option at this time and was not warranted and patient needed to continue with follow-up appointments in the outpatient setting. Patient did have a set appointment last month on September 19 and patient came here instead to the ER. Currently no reports of chest pain, shortness of breath, or palpitations. Patient is afebrile. No reports of nausea or vomiting and patient continues to be very little if anything at all during hospitalization. Patient did work with physical therapy minimally requiring standby assistance and was independent to the bathroom on his own. Patient continues to be fatigued and weak and mostly lies in the bed all day refusing to sit in the chair or walk around. Patient will be discharged today. Patient will need repeat labs in 2-3 days to monitor potassium and sodium levels. On exam vital signs are stable. Temp is 97.7F, pulse is 101, respirations are 18, blood pressure is 103/69, oxygen saturation is 98% on room air. Cardio S1, S2 are present. Respiratory shows diminished breath sounds at the bases with no wheezing or rhonchi noted. Abdomen is soft, thin, and nontender. Nervous system shows no focal deficits. Please refer to medication reconciliation sheet for a list of medications. Patient Condition at Discharge: Fair Plan - Discharge Summary Discharge Rx Participant: No New Discharge Prescriptions: New Acetaminophen Tab [Tylenol] 325 mg PO Q6H PRN #60 tab PRN Reason: Pain Continue Tamsulosin HCl [Flomax] 0.4 mg PO HS Prochlorperazine [Compazine] 5 mg PO Q12HR PRN #20 tab PRN Reason: Nausea And Vomiting Folic Acid 1 mg PO DAILY@1200 30 Days #30 tab Escitalopram [Lexapro] 10 mg PO HS 30 Days #30 tab Thiamine [Vitamin B-1] 100 mg PO DAILY@1200 30 Days #30 tab Acetaminophen Tab [Tylenol] 325 mg PO Q4H Fludrocortisone [Florinef] 0.2 mg PO DAILY@1200 Ondansetron Odt [Zofran ODT] 4 mg PO Q8HR PRN #12 tab PRN Reason: Nausea Pantoprazole Sodium [Protonix] 40 mg PO DAILY #0 Nystatin 100,000 Unit/ml Susp [Mycostatin Oral Susp] 500,000 unit PO QID #240 ml Loperamide [Imodium] 2 mg PO QID PRN #30 cap PRN Reason: Diarrhea Diphenox-Atrop 2.5-0.025 mg [Lomotil] 1 each PO Q6HR PRN #20 tab PRN Reason: Diarrhea Cholestyramine (with Sugar) [Questran Packet] 4 gm PO ACHS #60 packet Discontinued predniSONE See Taper PO DAILY Acetaminophen Tab [Tylenol Tab] 500 mg PO Q6H PRN #30 tablet PRN Reason: Pain Discharge Medication List Tamsulosin HCl [Flomax] 0.4 mg PO HS 09/05/19 [History] Escitalopram [Lexapro] 10 mg PO HS 30 Days #30 tab 09/12/19 [Rx] Folic Acid 1 mg PO DAILY@1200 30 Days #30 tab 09/12/19 [Rx] Prochlorperazine [Compazine] 5 mg PO Q12HR PRN #20 tab 09/12/19 [Rx] Thiamine [Vitamin B-1] 100 mg PO DAILY@1200 30 Days #30 tab 09/12/19 [Rx] Acetaminophen Tab [Tylenol] 325 mg PO Q4H 09/19/19 [History] Fludrocortisone [Florinef] 0.2 mg PO DAILY@1200 09/19/19 [History] Nystatin 100,000 Unit/ml Susp [Mycostatin Oral Susp] 500,000 unit PO QID #240 ml 09/25/19 [Rx] Ondansetron Odt [Zofran ODT] 4 mg PO Q8HR PRN #12 tab 09/25/19 [Rx] Pantoprazole Sodium [Protonix] 40 mg PO DAILY #0 09/25/19 [Rx] Acetaminophen Tab [Tylenol] 325 mg PO Q6H PRN #60 tab 10/02/19 [Rx] Cholestyramine (with Sugar) [Questran Packet] 4 gm PO ACHS #60 packet 10/02/19 [Rx] Diphenox-Atrop 2.5-0.025 mg [Lomotil] 1 each PO Q6HR PRN #20 tab 10/02/19 [Rx] Loperamide [Imodium] 2 mg PO QID PRN #30 cap 10/02/19 [Rx] Follow up Appointment(s)/Referral(s): [facility],Clinic [Primary Care Provider] - 1-2 days Ambulatory/Diagnostic Orders: Basic Metabolic Panel [LAB.AMB] Time Frame: 2 Days, Location: None Selected Activity/Diet/Wound Care/Special Instructions: [facility]- pt has an appt at [facility] with a Dr. Dawson on October 03 at 2:45 - pt has an virtual appt with a Dr. Moura the GI Dr with [facility] on October 03 at 8 am. Continue with regular diet and continue to increase protein intake Keep follow-up appointments with [facility] for this Monday Increase activity as tolerated Continue with Imodium, Questran, Lomotil for diarrhea Repeat labs in 2-3 days Discharge Disposition: HOME WITH HOME HEALTH SERVICES
--- NOTE | 2019-10-02 14:58 | PN ---
PROGRESS NOTE DATE OF DICTATION: 10/02/2019 Patient is a 68-year-old pleasant white male admitted to hospital with failure to thrive, progressive weakness, decreased appetite, persistent diarrhea. He was discharged home from the hospital 2 weeks ago. He continues to complain of decreased appetite. He could not eat his breakfast this morning. He still had diarrhea with 2 loose bowel movements this morning and took an Imodium. He has decreased appetite. No fever, chills, night sweats. He reports no abdominal pain. No nausea, vomiting. PHYSICAL EXAMINATION: Appears comfortable, in no apparent distress. Vital signs are stable. Blood pressure is 103/69, pulse is 101, temperature 97.7. HEENT: Examination unremarkable. Conjunctivae are pink. Sclerae nonicteric. Oral cavity no lesions. NECK: NO JVD or lymph node enlargement. CHEST: Clear to auscultation. HEART: Regular rate and rhythm. ABDOMEN: Soft. There was very minimal tenderness in the epigastric area. Rest of the abdomen was benign. Bowel sounds are positive. EXTREMITIES: No pedal edema. SKIN: No rashes. NEUROLOGIC: Alert and oriented x3. No focal deficits. LABS: WBC 3.1, hemoglobin 10.5, platelets normal. Basic metabolic panel is within normal limits. Stool for C difficile toxin was negative. IMPRESSION: 1. Chronic persistent diarrhea for the last 2 months duration. The patient had an EGD and colonoscopy in [facility] about 6 weeks ago and was diagnosed to have diffuse colitis with deep ulcerations involving the colon and biopsy showed chronic inflammation. He was treated empirically with steroids for the last 3 weeks with some improvement, but patient stopped prednisone because of side effects. Etiology of chronic colitis remains unclear, possibly inflammatory bowel disease. 2. Decreased appetite, poor oral intake and weight loss. 3. History of metastatic renal cell carcinoma, status post radiation therapy at [facility] in May of 2019. 4. Gastroesophageal reflux disease. RECOMMENDATION: Continue with current medication. Upon patient's family request, patient is being transferred to [facility] today. Thank you for this consultation. MMODL / IJN: [id number] /
== END 2019-10-02 15:21 | disposition home health service (06) | DRG 386 ==
LOC: EC 19:10 → 5NMEDONC 22:19 → OBSVTOIN 09-30 09:40
PROVIDERS: ADMIT Hospitalist; ATTEND Hospitalist
DX: K51.90 Ulcerative colitis, unspecified, without complications (principal); E87.1 Hypo-osmolality and hyponatremia; E44.1 Mild protein-calorie malnutrition; C79.9 Secondary malignant neoplasm of unspecified site; R62.7 Adult failure to thrive; E87.6 Hypokalemia; E86.0 Dehydration; E86.1 Hypovolemia; K27.9 Peptic ulcer, site unspecified, unspecified as acute or chronic, without hemorrhage or perforation; K21.9 Gastro-esophageal reflux disease without esophagitis; Z93.3 Colostomy status; Z79.52 Long term (current) use of systemic steroids; Z79.899 Other long term (current) drug therapy; Z92.3 Personal history of irradiation; Z90.2 Acquired absence of lung [part of]; Z90.49 Acquired absence of other specified parts of digestive tract; Z90.5 Acquired absence of kidney; Z85.528 Personal history of other malignant neoplasm of kidney; Z85.118 Personal history of other malignant neoplasm of bronchus and lung
CPT/HCPCS: 36415; 71046; 80048; 80053; 81001; 82550; 83735; 84100; 84443; 84484; 85025; 87324; 93005; 96360; 96361; 99285

== ENCOUNTER → 2020-02-28 | Outpatient (CLI) | payer MEDICARE ==
[2020-02-28 15:18] LABS: Basophils % (A) 1 %; Eosinophils # (A) 0.3 k/uL (0-0.7); Eosinophils % (A) 4 %; HCT 39.9 % (39.0-53.0); HGB 12.8 gm/dL (13.0-17.5); Lymphocytes # (A) 1.7 k/uL (1.0-4.8); Lymphocytes % (A) 30 %; MCHC 32.1 g/dL (31.0-37.0); MCV 93.5 fL (80.0-100.0); Mean Platelet Volume 6.9; Monocytes # (A) 0.3 k/uL (0-1.0); Monocytes % (A) 6 %; Neutrophils # (A) 3.3 k/uL (1.3-7.7); Neutrophils % (A) 58 %; Platelet Count 398 k/uL (150-450); RBC 4.26 m/uL (4.30-5.90); RDW 13.2 % (11.5-15.5); WBC 5.7 k/uL (3.8-10.6)
[2020-02-28 19:52] LABS: African American GFR (CKD) 77.9 (60.0-200.0); Anion Gap 8.4 mmol/L (4.00-12.00); BUN/Creat Ratio 18.18 Ratio (12.00-20.00); Calcium 10.1 mg/dL (8.7-10.3); Carbon Dioxide 25.6 mmol/L (21.6-31.8); Non-African American GFR(CKD) 67.2 (60.0-200.0); Potassium 4.5 mmol/L (3.5-5.5)
== END | disposition home or self-care (01) ==
LOC: LABWHC1 14:53
DX: C64.1 Malignant neoplasm of right kidney, except renal pelvis (principal)
CPT/HCPCS: 36415; 80048; 85025